=== PATIENT | female | born 1980 | race Caucasian/White ===

== ENCOUNTER 2016-12-13 12:58 | Inpatient (IN) | payer MEDICARE ==
[~2016-12-13] VITALS: Ht 160 cm; Wt 89.8 kg
[~2016-12-13 12:58] MED LIST: AMBIEN10 M1 ORAL; BENADRYL25 MG ORAL; DILAUDID1 MG/1 ML PO; PLAQUENIL200 MG ORAL; PREDNISONE2.5 MG ORAL; XARELTO10 MG ORAL
[2016-12-13] MEDS ORDERED: DiphenhydrAMINE 50mg/ml Inj IVP ONE ×2 (13:30→19:45)
[2016-12-13] MEDS ORDERED: Solu-MEDROL 125mg Inj IVP ONE (13:30)
[2016-12-13 14:30] VITALS: BP 173/113
[2016-12-13 14:41] LABS: MEAN CORPUSCULAR HEMOGLOBIN 30.6 PG (27.0-31.0); MEAN CORPUSCULAR HGB CONC 32.7 G/DL (32.0-36.0); MEAN CORPUSCULAR VOLUME 94 FL (80-99); MEAN PLATELET VOLUME 6.3 FL (6.5-10.1); PLATELET COUNT 207 K/UL (150-450); RED BLOOD COUNT 3.19 M/UL (4.20-5.40); RED CELL DISTRIBUTION WIDTH 17.4 % (11.6-14.8); WHITE BLOOD COUNT 8.2 K/UL (4.8-10.8)
[2016-12-13 14:44] LABS: APPEARANCE,URINE CLEAR; KETONES,URINE NEGATIVE (NEGATIVE); LEUKOCYTE ESTERASE ,URINE NEGATIVE (NEGATIVE); NITRITE,URINE NEGATIVE (NEGATIVE); PH,URINE 5 (4.5-8.0); PROTEIN,URINE 2+ (NEGATIVE); UROBILINOGEN,URINE NORMAL MG/DL (0.0-1.0)
[2016-12-13 14:53] LABS: BACTERIA,URINE FEW /HPF; RBC,URINE 0-2 /HPF (0 - 2); SQUAMOUS EPITHELIAL CELL,UR MODERATE /LPF (NONE/OCC); WBC,URINE 0-2 /HPF (0 - 2)
[2016-12-13 14:58] LABS: ALANINE AMINOTRANSFERASE 18 U/L (3-33); ALBUMIN/GLOBULIN RATIO 2.4 (1.0-2.7); ANION GAP 15 (5-15); ASPARTATE AMINO TRANSFERASE 16 U/L (5-40); CALCIUM 8.6 mg/dL (8.6-10.2); CARBON DIOXIDE 26 mEQ/L (20-30); CHLORIDE 100 mEQ/L (98-107); CREATININE 0.7 mg/dL (0.5-0.9); GLOMERULAR FILTRATION RATE > 60 mL/min (>60); HEMOLYSIS 4; POTASSIUM 3.5 mEQ/L (3.4-4.9); REFLEX LACTIC ACID YES OR NO YES; SODIUM 141 mEQ/L (135-145); TOTAL PROTEIN 5.5 g/dL (6.6-8.7)
[2016-12-13 15:00] LABS: PROTHROMBIN TIME 9.9 SEC (9.30-11.50)
[2016-12-13 15:12] LABS: TROPONIN I < 0.30 ng/mL (<=0.30)
[2016-12-13 15:18] LABS: ANISOCYTOSIS 1+; BAND NEUTROPHILS % (MANUAL) 0 % (0-8); BASOPHILS % (MANUAL) 0 % (0-2); EOSINOPHILS % (MANUAL) 0 % (0-3); LYMPHOCYTES % (MANUAL) 2 % (20-45); NEUTROPHILS % (MANUAL) 97 % (45-75); PLATELET ESTIMATE ADEQUATE; PLATELET MORPHOLOGY NORMAL; TOTAL CELLS COUNTED 100
[2016-12-13 15:20] LABS: HYPOCHROMASIA 1+
[2016-12-13 15:49] LABS: ERYTHROCYTE SEDIMENTATION RATE 16 MM/HR (0-20)
--- NOTE | 2016-12-13 15:52 | Emergency Room Report ---
History of Present Illness General Chief Complaint: Syncope Source: Patient Present Illness HPI Patient presents with chest pain dyspnea on exertion. She's had a history of PEs in the past and feels like this is what's going on at this time. She is on Xarelto but has had PEs on this medication. All anticoagulants that she's been on have not been effective for her. She states the coagulopathy is related to her Lupus. She is taking Dilaudid 2 mg every 4 hours at home IV along with benadryl. The pain is 8/10, under her L breast and radiates to her back. It is pleuritic. She denies productive cough or fever, but feels chilled. She also passed out for a short period of time around noon today. No palpitations. 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 She has been on them for several months - usually 3 weeks of treatment with Vancomycin then off for 3 weeks. This came from portacath infection. The patient also has systemic lupus erythematosus. She has an allergy to contrast dye but tolerates this with pre-treatment with solumedrol and benadryl. She has been evaluated at [place]. 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[place] Last Menstrual Period: 12/01/16 Now: No Reviewed Nursing Documentation: PMH: Agreed, PSxH: Agreed Nursing Documentation-PM Past Medical History: No History, Except For Review of Systems All Other Systems: negative except mentioned in HPI Physical Exam Vital Signs Date Time Temp Pulse Resp B/P Pulse Ox O2 Delivery O2 Flow Rate FiO2 12/13/16 13:10 97.2 108 18 161/108 99 Room Air Sp02 EP Interpretation: reviewed, normal General Appearance: well appearing, no apparent distress, GCS 15, obese Head: normocephalic Eyes: bilateral eye PERRL, bilateral eye normal inspection ENT: moist mucus membranes Neck: supple Respiratory: lungs clear, normal breath sounds, other - chest wall tenderness L Cardiovascular #1: tachycardia, other - PICC line L antecub - skin not erythematous Cardiovascular #2: 2+ radial (R) Gastrointestinal: normal inspection, normal bowel sounds, non tender, no mass, non-distended Musculoskeletal: back normal, gait/station normal, normal range of motion Neurologic: alert, oriented x3, grossly normal Psychiatric: mood/affect normal Skin: normal inspection, warm/dry, other - some skin lesions, not appear infected Medical Decision Making Diagnostic Impression: Primary Impression: Syncope Qualified Codes: R55 - Syncope and collapse Additional Impressions: R/O pulmonary embolus Osteomyelitis of spine Lupus (systemic lupus erythematosus) Qualified Codes: M32.19 - Other organ or system involvement in systemic lupus erythematosus ER Course The patient's presents with syncope and with left-sided chest pain with history of pulmonary emboli. Differential includes acute myocardial infarction, pneumonia, or embolus, arrhythmia, electrolyte abnormality, exacerbation of lupus, gastroenteritis amongst others. The patient is tachycardic and needs emergent evaluation with labs, chest x-ray, EKG and also CT angiogram of the chest. She'll be treated with analgesia. She states she has a allergy to contrast dye but does well with Solu-Medrol and Benadryl. These will be administered to the patient also appeared very complicated patient the niece to have review of medical records from [place] and the [facility]. These are not available to us at this time. Her oxygen saturation is good on room air however she is tachycardic. The patient has some relief with analgesia. EKG shows sinus tachycardia. Labs are significant for anemia, normal white count, elevated lactate. She will receive IV hydration and likely will be repeated. Radiology has a protocol to wait 24 hours for CTA with contrast allergy. Will treat empirically. Heparin ordered. Patient admitted to Dr. Wallis and he was made aware of the radiology protocol. Laboratory Tests Test 12/13/16 14:20 12/13/16 16:30 White Blood Count 8.2 K/UL (4.8-10.8) Red Blood Count 3.19 M/UL (4.20-5.40) L Hemoglobin 9.8 G/DL (12.0-16.0) L Hematocrit 29.9 % (37.0-47.0) L Mean Corpuscular Volume 94 FL (80-99) Mean Corpuscular Hemoglobin 30.6 PG (27.0-31.0) Mean Corpuscular Hemoglobin Concent 32.7 G/DL (32.0-36.0) Red Cell Distribution Width 17.4 % (11.6-14.8) H Platelet Count 207 K/UL (150-450) Mean Platelet Volume 6.3 FL (6.5-10.1) L Neutrophils (%) (Auto) % (45.0-75.0) Lymphocytes (%) (Auto) % (20.0-45.0) Monocytes (%) (Auto) % (1.0-10.0) Eosinophils (%) (Auto) % (0.0-3.0) Basophils (%) (Auto) % (0.0-2.0) Differential Total Cells Counted 100 Neutrophils % (Manual) 97 % (45-75) H Lymphocytes % (Manual) 2 % (20-45) L Monocytes % (Manual) 1 % (1-10) Eosinophils % (Manual) 0 % (0-3) Basophils % (Manual) 0 % (0-2) Band Neutrophils 0 % (0-8) Platelet Estimate Adequate Platelet Morphology Normal Hypochromasia 1+ Anisocytosis 1+ Erythrocyte Sedimentation Rate 16 MM/HR (0-20) Prothrombin Time 9.9 SEC (9.30-11.50) Prothrombin Time INR 1.0 (0.9-1.1) PTT 19 SEC (23-33) L Urine Color Pale yellow Urine Appearance Clear Urine pH 5 (4.5-8.0) Urine Specific [place] 1.010 (1.005-1.035) Urine Protein 2+ (NEGATIVE) H Urine Glucose (UA) Negative (NEGATIVE) Urine Ketones Negative (NEGATIVE) Urine Occult Blood Negative (NEGATIVE) Urine Nitrite Negative (NEGATIVE) Urine Bilirubin Negative (NEGATIVE) Urine Urobilinogen Normal MG/DL (0.0-1.0) Urine Leukocyte Esterase Negative (NEGATIVE) Urine RBC 0-2 /HPF (0 - 2) Urine WBC 0-2 /HPF (0 - 2) Urine Squamous Epithelial Cells Moderate /LPF (NONE/OCC) H Urine Bacteria Few /HPF (NONE) Urine HCG, Qualitative Negative Sodium Level 141 mEQ/L (135-145) Potassium Level 3.5 mEQ/L (3.4-4.9) Chloride Level 100 mEQ/L (98-107) Carbon Dioxide Level 26 mEQ/L (20-30) Anion Gap 15 (5-15) Blood Urea Nitrogen 14 mg/dL (7-23) Creatinine 0.7 mg/dL (0.5-0.9) Estimate Glomerular Filtration Rate > 60 mL/min (>60) Glucose Level 169 mg/dL (74-106) H Lactic Acid Level 2.30 mmol/L (0.66-2.22) H 1.40 mmol/L (0.66-2.22) Calcium Level 8.6 mg/dL (8.6-10.2) Total Bilirubin < 0.2 mg/dL (0.0-1.2) Aspartate Amino Transferase (AST) 16 U/L (5-40) Alanine Aminotransferase (ALT) 18 U/L (3-33) Alkaline Phosphatase 66 U/L (35-104) Total Creatine Kinase 52 U/L (26-140) Troponin I < 0.30 ng/mL (<=0.30) Pro-B-Type Natriuretic Peptide 662 pg/mL (0-125) H Total Protein 5.5 g/dL (6.6-8.7) L Albumin 3.9 g/dL (3.5-5.2) Globulin 1.6 g/dL Albumin/Globulin Ratio 2.4 (1.0-2.7) EKG Diagnostic Results Rate: tachycardiac ST Segments: no acute changes Rhythm Strip Diag. Results EP Interpretation: yes Rhythm: no PVC's, no ectopy, other - ST Chest X-Ray Diagnostic Results EP Interpretation: Yes Findings: no effusion, no pneumothorax, other - poor inspiration Number of Views: 1 Last Vital Signs Date Time Temp Pulse Resp B/P Pulse Ox O2 Delivery O2 Flow Rate FiO2 12/13/16 17:58 98.4 100 14 169/109 98 Room Air 2.0 Status: improved Disposition: ADMITTED INPATIENT Condition: Serious Referrals: NON PHYSICIAN (PCP) Marcello Patel M.D. Dec 13, 2016 15:52
[2016-12-13] MEDS ORDERED: Heparin 25,000u/D5W 500ml 500 ML IV SCH (16:45)
[2016-12-13] MEDS ORDERED: Heparin 5000 units/ml inj IV ONE (16:45)
[2016-12-13] MEDS ORDERED: HYDROmorphone 1mg/ml Carpuject IVP ONE (16:45)
--- NOTE | 2016-12-13 17:01 | Diagnostic Imaging Report ---
Indication: Shortness of breath Technique: One view of the chest Comparison: 09/25/2016 Findings: Suboptimal inspiration. No definite acute infiltrates, effusions or congestion. Heart size is normal Impression: No acute process
[2016-12-13 17:58] VITALS: BP 169/109
[2016-12-13] MEDS ORDERED: Vancomycin 1.5gm/D5W 300ml 325 ML IVPB ONE (19:45)
[2016-12-13 23:42] VITALS: BP 148/100
[2016-12-13] MEDS ORDERED: Zolpidem 5mg tab ORAL PRN (23:45)
[2016-12-14] MEDS: DiphenhydrAMINE 50mg/ml Inj IVP PRN ×4 (02:14→21:12)
[2016-12-14] MEDS: 1/2NS w/KCl 20mEq 1000ml 1,000 ML IV SCH ×2 (02:33→14:44)
--- NOTE | 2016-12-14 03:28 | History and Physical Report ---
DATE OF ADMISSION: 12/13/2016 CONSULTING PHYSICIAN: Marcello Wallis M.D. REQUESTING PHYSICIAN: Chas Brady M.D. REASON FOR EVALUATION: Chest pain. HISTORY OF PRESENT ILLNESS: This is a 36-year-old white female with systemic lupus and history of pulmonary emboli, who is on chronic anticoagulation with rivaroxaban 20 mg daily which she takes religiously. The patient has had pulmonary emboli in the past, on anticoagulation. The patient is on chronic pain therapy as well at home using a PICC line. The patient presented to the emergency room complaining of chest pain and shortness of breath with activity radiating from her left breast through to her back. The patient thinks she may have passed out for a short period today, but no injury noted. She also is concerned because both her parents at a young age of heart disease. The patient is also receiving intravenous antibiotics for osteomyelitis at home. PAST MEDICAL HISTORY: As noted above. ALLERGIES: Includes Ketoralac, nonsteroidal anti-inflammatory drugs, sulfa, chlorhexidine, CT contrast, and Lasix. SOCIAL HISTORY: Negative for smoking, alcohol, or substance abuse. REVIEW OF SYSTEMS: No fevers or chills. She has back pain and is on intravenous antibiotics for osteomyelitis. There is no history of seizures. There is no history of endocarditis. She has not had any melena bright red blood per rectum. No frequency or dysuria. PHYSICAL EXAM: VITAL SIGNS: Afebrile, blood pressure 161/108, pulse 108, and respirations 18. HEENT: Conjunctivae pink. Oropharynx clear. No point tenderness over the spine. NECK: Short neck. CARDIAC: Regular rhythm and rate. Normal S1 and S2 with no murmur. LUNGS: Clear. ABDOMEN: Soft. EXTREMITIES: With no calf tenderness or edema. No skin rash or bruising. PICC line site over the left upper extremity with no signs of entry site infection. LABORATORY AND DIAGNOSTIC STUDIES: Troponin negative. White count 8.2 and hemoglobin 9.8. Lactic acid 2.5. Chemistry panel within normal limits. Pro-natriuretic peptide of 662. Chest x-ray, no acute process with poor inspiratory effort. EKG, sinus tachycardia, otherwise normal. IMPRESSION: 1. Chest and back pain in the setting of chronic pain and osteomyelitis of the spine. Considerations include pulmonary embolic event, musculoskeletal pain, or less likely acute coronary syndrome. 2. Possible syncopal episode. 3. Systemic lupus. 4. Microcytic anemia. PLAN: 1. Cardiac monitoring. 2. Monitor orthostatics. 3. Continue rivaroxaban. 4. Serial troponin. 5. Repeat lactic acid. 6. Hydrate. 7. CT coronary angiogram. 8. Echocardiogram. 9. IV Dilaudid for pain control. 10. Anemia panel. 11. Further recommendations to follow. Marcello Wallis M.D. DR: TYRELL JOB#: [id number] CC: JEAN
[2016-12-14 04:00] VITALS: BP 159/106
[2016-12-14 05:58] LABS: MEAN CORPUSCULAR HEMOGLOBIN 29.5 PG (27.0-31.0); MEAN CORPUSCULAR HGB CONC 31.9 G/DL (32.0-36.0); MEAN CORPUSCULAR VOLUME 92 FL (80-99); MEAN PLATELET VOLUME 6.3 FL (6.5-10.1); PLATELET COUNT 212 K/UL (150-450); RED BLOOD COUNT 3.01 M/UL (4.20-5.40); RED CELL DISTRIBUTION WIDTH 16.9 % (11.6-14.8); WHITE BLOOD COUNT 11.7 K/UL (4.8-10.8)
[2016-12-14 06:33] LABS: ALANINE AMINOTRANSFERASE 14 U/L (3-33); ALBUMIN/GLOBULIN RATIO 1.7 (1.0-2.7); ANION GAP 11 (5-15); ASPARTATE AMINO TRANSFERASE 13 U/L (5-40); CALCIUM 8.5 mg/dL (8.6-10.2); CARBON DIOXIDE 28 mEQ/L (20-30); CHLORIDE 102 mEQ/L (98-107); CREATININE 0.8 mg/dL (0.5-0.9); GLOMERULAR FILTRATION RATE > 60 mL/min (>60); HEMOLYSIS 13; POTASSIUM 3.4 mEQ/L (3.4-4.9); SODIUM 141 mEQ/L (135-145)
[2016-12-14 07:10] LABS: TROPONIN I < 0.30 ng/mL (<=0.30)
[2016-12-14 07:19] LABS: HEMOLYSIS 7; IRON 58 ug/dL (37-145); TOTAL IRON BINDING CAPACITY 267 ug/dL (250-400)
[2016-12-14 08:00] VITALS: BP 160/121
[2016-12-14] MEDS: Xarelto 10mg tab ORAL SCH (09:03)
[2016-12-14 12:00] VITALS: BP 142/72
[2016-12-14] MEDS ORDERED: Solu-MEDROL 125mg Inj IVP ONE ×2 (12:45)
[2016-12-14] MEDS ORDERED: KCl 10% 20 mEq/15ml liquid NG ONE (13:00)
[2016-12-14] MEDS: Vancomycin 1.25 GM in D5W 275 ML IVPB SCH (14:44)
--- NOTE | 2016-12-14 14:44 | Diagnostic Imaging Report ---
Indications: Chest pain, dyspnea on exertion, history of pulmonary embolism Technique: Patient was premedicated for history of iodine contrast allergy beginning 24 hours prior to exam. Continuous helical CT imaging of the thorax was performed with automatic exposure control, following bolus intravenous administration of nonionic iodine contrast, on a Siemens sensation [address] scanner. Axial images reconstructed at 3 mm slice thickness and 1.5 mm interval. Coronal and sagittal images were reconstructed at 3 mm slice thickness. Coronal and sagittal two-dimensional maximum intensity projection and three-dimensional volume-rendered images were reconstructed on a stand alone workstation. Patient's nurse continually monitored the patient during and after the exam. CTDI volume(s): 13x2, 40 mGy Total DLP: 1110 mGy-cm Findings: Comparison: None The main pulmonary artery, right and left pulmonary arteries, and pulmonary artery branches to the level of third order branching are patent and well-opacified. No intraluminal filling defects are demonstrated. The thoracic aorta and great vessels are patent and well-opacified, normal in caliber and configuration. No evidence of aneurysm, dissection, or leak. Heart is upper limits of normal in size. No pericardial abnormality is demonstrated. No mediastinal or hilar enlarged lymph nodes are demonstrated. Central venous catheter extends from the left upper extremity, tip at level of SVC-right atrial junction. Irregular pleural-based linear densities are present in the dependent portions both lung bases. Lungs are otherwise clear. No pleural abnormalities. Chest wall soft tissues nonfocal. Imaged upper abdominal anatomy unremarkable. Disc marginal osteophytes scattered throughout thoracic, lower cervical spine. IMPRESSION: No evidence of pulmonary embolism or other significant acute thoracic pathology Pulmonary bibasal subsegmental atelectasis Borderline cardiomegaly PICC Degenerative spondylosis
[2016-12-14 16:00] VITALS: BP 159/99
[2016-12-14 20:00] VITALS: BP 148/84
[2016-12-15] VITALS: BP 144/87
[2016-12-15] MEDS: Vancomycin 1.25 GM in D5W 275 ML IVPB SCH ×2 (01:20→13:29)
[2016-12-15] MEDS: DiphenhydrAMINE 50mg/ml Inj IVP PRN ×5 (01:20→21:23)
[2016-12-15 04:00] VITALS: BP 151/83
[2016-12-15] MEDS: 1/2NS w/KCl 20mEq 1000ml 1,000 ML IV SCH ×2 (05:30→17:56)
[2016-12-15 06:44] LABS: MEAN CORPUSCULAR HEMOGLOBIN 30.2 PG (27.0-31.0); MEAN CORPUSCULAR HGB CONC 32.1 G/DL (32.0-36.0); MEAN CORPUSCULAR VOLUME 94 FL (80-99); MEAN PLATELET VOLUME 6.4 FL (6.5-10.1); PLATELET COUNT 241 K/UL (150-450); RED CELL DISTRIBUTION WIDTH 17.2 % (11.6-14.8); WHITE BLOOD COUNT 13.1 K/UL (4.8-10.8)
[2016-12-15 07:15] LABS: ALANINE AMINOTRANSFERASE 13 U/L (3-33); ALBUMIN/GLOBULIN RATIO 1.7 (1.0-2.7); ANION GAP 12 (5-15); ASPARTATE AMINO TRANSFERASE 10 U/L (5-40); CALCIUM 8.3 mg/dL (8.6-10.2); CARBON DIOXIDE 27 mEQ/L (20-30); CHLORIDE 102 mEQ/L (98-107); CREATININE 0.9 mg/dL (0.5-0.9); GLOMERULAR FILTRATION RATE > 60 mL/min (>60); HEMOLYSIS 4; MAGNESIUM 1.7 mg/dL (1.7-2.5); POTASSIUM 3.5 mEQ/L (3.4-4.9); SODIUM 141 mEQ/L (135-145)
[2016-12-15 08:00] VITALS: BP 152/84
[2016-12-15 09:50] LABS: LYMPHOCYTES % (MANUAL) 5 % (20-45); NEUTROPHILS % (MANUAL) 87 % (45-75); TOTAL CELLS COUNTED 100
[2016-12-15 09:51] LABS: ANISOCYTOSIS 1+; BAND NEUTROPHILS % (MANUAL) 0 % (0-8); BASOPHILS % (MANUAL) 0 % (0-2); EOSINOPHILS % (MANUAL) 0 % (0-3); HYPOCHROMASIA 1+; PLATELET ESTIMATE ADEQUATE; PLATELET MORPHOLOGY NORMAL; POLYCHROMASIA OCCASIONAL
[2016-12-15 12:00] VITALS: BP 145/85
[2016-12-15 16:00] VITALS: BP 144/86
[2016-12-15] MEDS: Xarelto 10mg tab ORAL SCH (17:19)
[2016-12-15 20:00] VITALS: BP 150/96
[2016-12-15] MEDS: Iron Sucrose 100 MG in NS 55 ML IVPB SCH (21:34)
[2016-12-16] VITALS: BP 149/82
--- NOTE | 2016-12-16 01:27 | Progress Note ---
INTERNAL MEDICINE PROGRESS NOTE SUBJECTIVE: The patient feels very weak. She denies chest pain and is less short of breath, but feels tired just walking to the bathroom. The patient had a CT angiogram yesterday that was preceded by a steroid dose intravenously in view of her contrast allergy. No complications were encountered. The results of study revealed no acute pulmonary embolic event. OBJECTIVE: VITAL SIGNS: Blood pressure 145/85, pulse 86, respirations 20, and afebrile. Oxygen saturation on room air is 96%. NECK: Supple. CHEST: Chest wall obese. LUNGS: Clear. ABDOMEN: Soft EXTREMITIES: Left upper extremity PICC line with the entry site having some erythema. Extremities with trace edema. LABORATORY DATA: White count 13 and hemoglobin 9.4. Sodium 141, potassium 3.5, BUN 18, creatinine 0.9, and albumin 3.2. IMPRESSION: 1. No signs of acute pulmonary emboli. 2. History of prior pulmonary emboli. 3. 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 4. Rivaroxaban-associated coagulopathy. 5. Mild protein-calorie malnutrition. 6. Osteomyelitis of the spine on chronic antibiotics. 7. Indwelling central line in the left upper extremity since 10/09/2016. 8. Leukocytosis due to steroids. Could not exclude PICC line site infection. 9. Systemic lupus. PLAN: 1. Continue antibiotics. 2. Protein supplements. 3. Anticoagulate with rivaroxaban. 4. Serial hemoglobin. 5. Replace potassium as needed. 6. Infectious Disease evaluation to assess the need for a PICC line replacement. Marcello Wallis M.D. DR: TYRELL JOB#: [id number] CC:
[2016-12-16] MEDS: DiphenhydrAMINE 50mg/ml Inj IVP PRN ×6 (01:35→21:40)
[2016-12-16] MEDS: guaiFENesin w/Codeine 5ml Liq ud ORAL PRN ×3 (01:35→17:47)
[2016-12-16] MEDS: 1/2NS w/KCl 20mEq 1000ml 1,000 ML IV SCH ×2 (01:36→21:31)
--- NOTE | 2016-12-16 01:37 | Progress Note ---
DATE: 12/14/2016 INTERNAL MEDICINE PROGRESS NOTE SUBJECTIVE: The patient still has chest pain especially with deep inspiration and cough. She has minimal shortness of breath, but gets fatigued walking to the bathroom. No fevers or chills noted. OBJECTIVE: VITAL SIGNS: Blood pressure 159/99, pulse 105, respirations 18, and afebrile. HEENT: Oropharynx clear. NECK: Supple. Jugular venous pressure is difficult to assess due to obesity of neck. LUNGS: With clear breath sounds. CARDIAC: Regular rhythm and rate. Normal S1 and S2 with no murmur. ABDOMEN: Soft. EXTREMITIES: With trace edema. Left upper extremity PICC line site clean and dry. LABORATORY DATA: White count is 11.7 and hemoglobin 8.9. Sodium 141, potassium 3.4, bicarbonate 28, BUN 15, and creatinine 0.8. Iron panel with saturation of 22%. Albumin 3.2. IMPRESSION: 1. Noncardiac chest pain, pleuritic chest pain. 2. History of pulmonary emboli with inferior vena cava filter bilaterally, rule out acute pulmonary embolic event. 3. Systemic lupus. 4. Borderline hypokalemia. 5. Iron deficiency with chronic anemia. 6. Mild protein-calorie malnutrition. 7. Hypertensive heart disease with elevated blood pressure. PLAN: 1. Check echocardiogram. 2. Check CT angiogram of the chest. 3. Continue full anticoagulation with rivaroxaban. 4. Skin care. 5. Continue antibiotics osteomyelitis. 6. Hydrate and replace potassium. 7. Optimize blood pressure control. 8. Continue Plaquenil. Marcello Wallis M.D. DR: KELTON JOB#: [id number] CC:
[2016-12-16] MEDS: Vancomycin 1.25 GM in D5W 275 ML IVPB SCH ×2 (02:31→13:36)
[2016-12-16 03:23] LABS: MEAN CORPUSCULAR HEMOGLOBIN 29.8 PG (27.0-31.0); MEAN CORPUSCULAR HGB CONC 31.9 G/DL (32.0-36.0); MEAN CORPUSCULAR VOLUME 94 FL (80-99); MEAN PLATELET VOLUME 6.2 FL (6.5-10.1); PLATELET COUNT 214 K/UL (150-450); RED BLOOD COUNT 3.18 M/UL (4.20-5.40); RED CELL DISTRIBUTION WIDTH 17.1 % (11.6-14.8); WHITE BLOOD COUNT 9.2 K/UL (4.8-10.8)
[2016-12-16 03:41] LABS: ALANINE AMINOTRANSFERASE 14 U/L (3-33); ALBUMIN/GLOBULIN RATIO 1.8 (1.0-2.7); ANION GAP 10 (5-15); ASPARTATE AMINO TRANSFERASE 11 U/L (5-40); CALCIUM 7.8 mg/dL (8.6-10.2); CARBON DIOXIDE 30 mEQ/L (20-30); CHLORIDE 103 mEQ/L (98-107); CREATININE 0.9 mg/dL (0.5-0.9); GLOMERULAR FILTRATION RATE > 60 mL/min (>60); HEMOLYSIS 3; MAGNESIUM 1.6 mg/dL (1.7-2.5); POTASSIUM 3.3 mEQ/L (3.4-4.9); SODIUM 143 mEQ/L (135-145); TOTAL PROTEIN 4.9 g/dL (6.6-8.7)
[2016-12-16 08:00] VITALS: BP 139/90
[2016-12-16] MEDS: Lisinopril 20mg tab ORAL SCH (09:11)
[2016-12-16 12:00] VITALS: BP_SYST 139; BP_SYST 145; BP_DIAS 68; BP_DIAS 90
[2016-12-16] MEDS ORDERED: Tubing IV Secondary IV ONE (14:38)
[2016-12-16 16:00] VITALS: BP 144/70
--- NOTE | 2016-12-16 16:12 | Cardiology Report ---
APPROVED REPORT EKG Measurement Heart [id number] Sinus tachycardia Otherwise normal ECG
[2016-12-16] MEDS: Xarelto 10mg tab ORAL SCH (16:30)
--- NOTE | 2016-12-16 16:49 | Cardiology Report ---
APPROVED REPORT EXAM: Two-dimensional and M-mode echocardiogram with Doppler and color Doppler. INDICATION Chest Pain M-Mode DIMENSIONS IVSd1.5 (0.7-1.1cm)Left Atrium (MM)4.3 (1.6-4.0cm) LVDd3.9 (3.5-5.6cm)Aortic Root3.9 (2.0-3.7cm) PWd1.4 (0.7-1.1cm)Aortic Cusp Exc.1.5 (1.5-2.0cm) IVSs1.8 cm LVDs3.0 (2.5-4.0cm) PWs1.6 cm Technically difficult study due to pts position and body habitus. Normal left ventricular chamber size, systolic function and wall motion to extent visualized. Left ventricular ejection fraction estimated to be 55 %. Mild left ventricular hypertrophy. Anterior Echo-free space, may be due to pericardial fat or effusion. Left atrial size at upper limits of normal. Right cardiac chamber sizes are within normal limits. Mild focal aortic valve sclerosis with adequate cusp excursion. Mildly thickened mitral valve leaflets with normal excursion. Mitral annulus and aortic root calcification. Pulmonic valve not well visualized. Normal tricuspid valve structure. IVC measured at 2.1 cm with physiologic collapse. A color flow and spectral Doppler study was performed and revealed: Trace aortic regurgitation. Moderate mitral regurgitation. Mitral diastolic velocities suggest reduced left ventricular relaxation c/w mild LV diastolic dysfunction (Grade I ). Mild tricuspid regurgitation. Tricuspid systolic velocities suggests peak right ventricular systolic pressure of 33 mmHg. Mild pulmonic regurgitation present.
[2016-12-16] MEDS ORDERED: KCl 10% 20 mEq/15ml liquid ORAL ONE (18:00)
[2016-12-16 20:00] VITALS: BP 142/92
[2016-12-16] MEDS: Iron Sucrose 100 MG in NS 55 ML IVPB SCH (21:31)
[2016-12-17] VITALS (7 sets, daily range): BP systolic 121–143; BP diastolic 78–97
[2016-12-17] MEDS: DiphenhydrAMINE 50mg/ml Inj IVP PRN ×6 (01:42→22:07)
[2016-12-17] MEDS: Vancomycin 1.25 GM in D5W 275 ML IVPB SCH ×2 (02:21→14:01)
--- NOTE | 2016-12-17 03:37 | Progress Note ---
DATE: 12/16/2016 INTERNAL MEDICINE PROGRESS NOTE SUBJECTIVE: The patient continues to feel very weak. She gets short of breath and fatigued walking to the bathroom. No nausea or vomiting. No diarrhea. OBJECTIVE: GENERAL: Afebrile. VITAL SIGNS: Blood pressure 144/70, pulse 105, and respirations 18. NECK: Supple. LUNGS: Clear. CARDIAC: Regular rhythm. Rapid rate. Normal S1 and S2. ABDOMEN: Soft. EXTREMITIES: No edema. Left upper extremity, PICC line site appears without any signs of drainage at the entry site. LABORATORY DATA: White count 9.2 and hemoglobin 9.5. Potassium 3.3, magnesium 1.6, BUN 16, and creatinine 0.9. IMPRESSION: 1. Systemic lupus. 2. History of deep vein thrombosis, inferior vena cava filters and multiple pulmonary emboli, however, no current signs of acute pulmonary emboli based on imaging study. 3. Anemia. 4. Hypomagnesemia. 5. Hypokalemia. 6. Osteomyelitis of the spine. PLAN: 1. Continue antibiotics. 2. IV magnesium. 3. Oral potassium. 4. Physical and occupational therapy. 5. Full anticoagulation. 6. Consider beta-blockade. Marcello Wallis M.D. DR: CLARE JOB#: [id number] CC:
[2016-12-17 05:07] LABS: BASOPHILS % (AUTO) 0.8 % (0.0-2.0); EOSINOPHILS % (AUTO) 1.5 % (0.0-3.0); LYMPHOCYTES % (AUTO) 4.4 % (20.0-45.0); MEAN CORPUSCULAR HEMOGLOBIN 29.5 PG (27.0-31.0); MEAN CORPUSCULAR HGB CONC 31.9 G/DL (32.0-36.0); MEAN CORPUSCULAR VOLUME 92 FL (80-99); MEAN PLATELET VOLUME 5.9 FL (6.5-10.1); MONOCYTES % (AUTO) 10.4 % (1.0-10.0); NEUTROPHILS % (AUTO) 82.9 % (45.0-75.0); PLATELET COUNT 230 K/UL (150-450); RED BLOOD COUNT 3.78 M/UL (4.20-5.40); RED CELL DISTRIBUTION WIDTH 17.1 % (11.6-14.8); WHITE BLOOD COUNT 10.1 K/UL (4.8-10.8)
[2016-12-17 05:33] LABS: ALANINE AMINOTRANSFERASE 17 U/L (3-33); ALBUMIN/GLOBULIN RATIO 1.7 (1.0-2.7); ANION GAP 12 (5-15); ASPARTATE AMINO TRANSFERASE 19 U/L (5-40); CALCIUM 8.7 mg/dL (8.6-10.2); CARBON DIOXIDE 32 mEQ/L (20-30); CHLORIDE 91 mEQ/L (98-107); GLOMERULAR FILTRATION RATE > 60 mL/min (>60); HEMOLYSIS 4; POTASSIUM 4.2 mEQ/L (3.4-4.9); SODIUM 135 mEQ/L (135-145); TOTAL PROTEIN 5.8 g/dL (6.6-8.7)
[2016-12-17] MEDS: Lisinopril 20mg tab ORAL SCH ×2 (08:54→18:02)
[2016-12-17] MEDS ORDERED: KCl 10% 40mEq/30ml liquid ORAL ONE (16:30)
[2016-12-17] MEDS: Xarelto 10mg tab ORAL SCH (16:34)
--- NOTE | 2016-12-17 19:58 | Consultation ---
DATE OF CONSULTATION: 12/17/2016 INFECTIOUS DISEASE CONSULTATION This consult is for coverage of Dr. Domingo. REASON FOR CONSULTATION: Osteomyelitis of the spine in thoracic area. HISTORY OF PRESENT ILLNESS: The patient is a 36-year-old white female admitted on 12/13/2016 because of left-sided chest pain, shortness of breath on exertion, had brief period of loss of consciousness, and syncope for 30 seconds. The patient has a history of lupus and recurrent pulmonary emboli, has one anticoagulant medication. Currently, chest pain is resolved. The patient states that she had osteomyelitis of the spine with Staph, was seen in [facility] and getting vancomycin. She is supposed to go back there and have a surgery. She states that she was on vancomycin on and off for two years. PAST MEDICAL HISTORY: Significant for lupus with positive lupus anticoagulant and hemolytic anemia, thoracic spine osteomyelitis, history of recurrent pulmonary emboli. PAST SURGICAL HISTORY: Significant for IVC filter placement, had a history of Port-A-Cath placement, has PICC line placement, the last one was September of last year, had appendectomy and cholecystectomy. MEDICATIONS: Lisinopril, Robitussin with codeine, iron, sucrose, diphenhydramine, IV vancomycin, hydroxychloroquine, rivaroxaban, hydromorphone, Tylenol, and Ambien. ALLERGIES: Allergic to chlorhexidine, IV contrast, , ketorolac, nonsteroidal antiinflammatory drugs, plastic, and sulfa drugs. SOCIAL HISTORY: Denies alcohol, drug abuse, or smoking. She is single. Originally from [place], but trying to move to [place]. She has no sibling. REVIEW OF SYSTEMS: No fever. No chills. No headache. No sore throat. No runny nose. She started to coughing since last night. She has no chest pain at the time of exam. The patient generally feels weak, but otherwise can walk. PHYSICAL EXAMINATION: GENERAL APPEARANCE: She seems to be obese. BMI is 35, no acute distress. VITAL SIGNS: T-max 100.8 degrees and current temperature 98.4 degrees. HEAD AND NECK: [place] conjunctivae. No oral lesion. The patient uses glasses. HEART: S1 and S2 regular. LUNGS: Clear. ABDOMEN: Soft and nontender. EXTREMITIES: No edema. The patient has left arm PICC line. NEUROLOGIC: Awake, alert and oriented x3. LABORATORY AND DIAGNOSTIC DATA: WBC is 10.1, hemoglobin 11.1, hematocrit 34.9 and platelet is 230,000. Sodium is 135, potassium 4.2, chloride 91, bicarbonate 32, BUN 7, and creatinine 1. BNP level is 1342. Vancomycin trough level is 15.7. The patient has a CT angiogram of the chest that was negative. Echocardiogram showed normal ejection fraction. Chest x-ray at the time of admission was negative. IMPRESSION: Osteomyelitis of thoracic spine that seems to be chronic and the patient getting antibiotic for a while. The patient has episodic fever last night, has systemic lupus erythematous, has anemia, obesity, and history of pulmonary emboli. RECOMMENDATIONS: We will continue with vancomycin. We will followup the chest x-ray and followup the cultures. I thank, Dr. Wallis, for involving me in the care of this patient. Duglas Gonzales M.D. DR: KELECHI JOB#: [id number] CC:
[2016-12-17] MEDS: Iron Sucrose 100 MG in NS 55 ML IVPB SCH (20:21)
--- NOTE | 2016-12-17 20:48 | Progress Note ---
DATE: 12/17/2016 "NOTE: INCOMPLETE DICTATION" CARDIOLOGY PROGRESS NOTE SUBJECTIVE: The patient continues to feel very weak. Her mobility is limited due to shortness of breath and muscle weakness. OBJECTIVE: VITAL SIGNS: Blood pressure 143/84, pulse 108, respirations 18, and afebrile. NECK: Supple. LUNGS: Clear with diminished breath sounds. CARDIAC: Regular rhythm. Rapid rate. Normal S1 and S2. ABDOMEN: Soft. EXTREMITIES: With trace edema. LABORATORY DATA: White count 10 and hemoglobin 11. Potassium 4.2, BUN 7, and creatinine 1. Pro-natriuretic peptide 1342. Marcello Wallis M.D. DR: TYRELL JOB#: [id number] CC:
[2016-12-18] VITALS: BP 113/56
[2016-12-18] MEDS: Vancomycin 1.25 GM in D5W 275 ML IVPB SCH ×2 (02:04→14:46)
[2016-12-18] MEDS: DiphenhydrAMINE 50mg/ml Inj IVP PRN ×6 (02:13→23:15)
[2016-12-18 04:00] VITALS: BP 118/65
[2016-12-18 08:00] VITALS: BP 104/73
[2016-12-18 08:00] LABS: ANION GAP 18 (5-15); CALCIUM 8.1 mg/dL (8.6-10.2); CARBON DIOXIDE 26 mEQ/L (20-30); CHLORIDE 96 mEQ/L (98-107); GLOMERULAR FILTRATION RATE > 60 mL/min (>60); HEMOLYSIS 78; MAGNESIUM 2.1 mg/dL (1.7-2.5); POTASSIUM 4.7 mEQ/L (3.4-4.9); SODIUM 140 mEQ/L (135-145)
[2016-12-18] MEDS: Lisinopril 20mg tab ORAL SCH ×2 (08:40→18:04)
--- NOTE | 2016-12-18 11:01 | Infectious Diseases Prog Note ---
Assessment/Plan Assessment/Plan antibiotics : vancomycin iv A 1. thoracic spine osteomyelitis 2. fever improving 3. lupus 4. anemia P 1. continue iv vancomycin 2. will follow up cultures Subjective Constitutional: Denies: chills, fever Respiratory: Reports: dry cough, shortness of breath Gastrointestinal/Abdominal: Denies: diarrhea, nausea, vomiting Musculoskeletal: Reports: pain Allergies: Coded Allergies: KETOROLAC (Verified Allergy, Unknown, 09/25/16) NSAIDS (NON-STEROIDAL ANTI-INFLAMMA (Verified Allergy, Unknown, 09/25/16) SULFA (SULFONAMIDE ANTIBIOTICS) (Verified Allergy, Unknown, 09/25/16) Uncoded Allergies: CHLORAHEXIDINE (Allergy, Unknown, 09/25/16) Chlorahexidine CT CONTRAST (Allergy, Unknown, 09/25/16) CT Contrast PLASTIC (Allergy, Unknown, 09/25/16) Plastic tape Objective Vital Signs Last 24 Hour Vital Signs Date Time Temp Pulse Resp B/P Pulse Ox O2 Delivery O2 Flow Rate FiO2 12/18/16 08:00 106 12/18/16 08:00 96.1 96 20 104/73 98 Room Air 12/18/16 06:48 98.1 12/18/16 04:00 98.1 106 18 118/65 95 Room Air 12/18/16 03:45 104 12/18/16 00:00 97.9 104 18 113/56 95 Room Air 12/17/16 23:39 99 12/17/16 20:00 111 12/17/16 20:00 98.1 112 20 121/84 92 Room Air 12/17/16 18:02 143/84 12/17/16 16:00 106 12/17/16 16:00 98.2 108 18 143/84 91 Room Air 12/17/16 12:00 98.4 111 20 124/97 92 Room Air 12/17/16 12:00 103 Height (Feet): 5 Height (Inches): 3.00 Weight (Pounds): 198 Respiratory/Chest: rhonchi - bilaterally Cardiovascular: normal rate, regular rhythm, no gallop/murmur Abdomen: soft, non tender Extremities: no edema Microbiology Date/Time Source Procedure Growth Status 12/16/16 08:30 Blood Blood Culture - Preliminary NO GROWTH AFTER 24 HOURS Resulted 12/16/16 03:00 Blood Blood Culture - Preliminary NO GROWTH AFTER 48 HOURS Resulted Laboratory Tests Test 12/18/16 04:30 Sodium Level 140 mEQ/L (135-145) Potassium Level 4.7 mEQ/L (3.4-4.9) Chloride Level 96 mEQ/L (98-107) L Carbon Dioxide Level 26 mEQ/L (20-30) Anion Gap 18 (5-15) H Blood Urea Nitrogen 10 mg/dL (7-23) Creatinine 1.0 mg/dL (0.5-0.9) H Estimat Glomerular Filtration Rate > 60 mL/min (>60) Glucose Level 87 mg/dL (74-106) Calcium Level 8.1 mg/dL (8.6-10.2) L Magnesium Level 2.1 mg/dL (1.7-2.5) JAY ISRAEL Dec 18, 2016 11:01
[2016-12-18 12:00] VITALS: BP 117/78
--- NOTE | 2016-12-18 13:47 | Diagnostic Imaging Report ---
Indication: COUGH Technique: One view of the chest Comparison: 12/13/2016 Findings: Lungs and pleural spaces are clear. Heart size is normal. Left arm PICC is again demonstrated. There is no significant change Impression: No acute process
[2016-12-18 16:00] VITALS: BP 122/91
[2016-12-18] MEDS ORDERED: DuoNeb 0.5-3(2.5)mg/3ml neb HHN SCH (16:00)
[2016-12-18] MEDS: Xarelto 10mg tab ORAL SCH (18:03)
[2016-12-18] MEDS: DuoNeb 0.5-3(2.5)mg/3ml neb HHN SCH (18:51)
[2016-12-18 20:00] VITALS: BP 124/75
[2016-12-18] MEDS: Iron Sucrose 100 MG in NS 55 ML IVPB SCH (21:18)
[2016-12-19 00:54] VITALS: BP 134/62
[2016-12-19] MEDS: DuoNeb 0.5-3(2.5)mg/3ml neb HHN SCH ×3 (01:00→13:30)
[2016-12-19] MEDS: Vancomycin 1.25 GM in D5W 275 ML IVPB SCH ×2 (01:59→13:49)
--- NOTE | 2016-12-19 02:29 | Progress Note ---
GENERAL MEDICINE PROGRESS NOTE SUBJECTIVE: The patient is complaining of congestion today and cough. She still has weakness and diffuse pain. Her chest x-ray was reviewed. No acute process noted. PHYSICAL EXAMINATION: VITAL SIGNS: Blood pressure 124/75, pulse 112, and respiratory rate 18. Afebrile. HEART: Few rhonchi. Regular rhythm. Rapid rate. Normal S1, S2. ABDOMEN: Soft. EXTREMITIES: Trace edema. IMPRESSION: 1. Bronchospasm. 2. Possible bronchitis. 3. Osteomyelitis of the spine. 4. Systemic lupus. 5. Acute diastolic congestive heart failure. 6. Hypercoagulable state. 7. History of inferior vena cava filter. 8. History of recurring pulmonary emboli. PLAN: 1. Cautious use of inhaled bronchodilators with beta agonist in view of tachycardia. 2. Diuresis, continue antibiotics. 3. Continue full anticoagulation. 4. Physical and occupational therapy. 5. Pending surgical intervention of the spine. Marcello Wallis M.D. DR: ANDREWS JOB#: [id number] CC:
[2016-12-19] MEDS: DiphenhydrAMINE 50mg/ml Inj IVP PRN ×4 (03:15→15:34)
[2016-12-19 04:00] VITALS: BP 140/75
[2016-12-19 05:52] LABS: MEAN CORPUSCULAR HEMOGLOBIN 29.2 PG (27.0-31.0); MEAN CORPUSCULAR HGB CONC 30.9 G/DL (32.0-36.0); MEAN CORPUSCULAR VOLUME 95 FL (80-99); MEAN PLATELET VOLUME 6.7 FL (6.5-10.1); PLATELET COUNT 164 K/UL (150-450); RED BLOOD COUNT 3.43 M/UL (4.20-5.40); RED CELL DISTRIBUTION WIDTH 17.4 % (11.6-14.8); WHITE BLOOD COUNT 5.7 K/UL (4.8-10.8)
[2016-12-19 06:18] LABS: ALANINE AMINOTRANSFERASE 21 U/L (3-33); ALBUMIN/GLOBULIN RATIO 1.5 (1.0-2.7); ANION GAP 13 (5-15); ASPARTATE AMINO TRANSFERASE 23 U/L (5-40); CALCIUM 8.8 mg/dL (8.6-10.2); CARBON DIOXIDE 30 mEQ/L (20-30); CHLORIDE 98 mEQ/L (98-107); CREATININE 1.1 mg/dL (0.5-0.9); GLOMERULAR FILTRATION RATE 56.2 mL/min (>60); HEMOLYSIS 5; SODIUM 141 mEQ/L (135-145); TOTAL PROTEIN 5.8 g/dL (6.6-8.7)
[2016-12-19 08:00] VITALS: BP 136/77
[2016-12-19] MEDS: Lisinopril 20mg tab ORAL SCH (08:10)
--- NOTE | 2016-12-19 10:21 | Diagnostic Imaging Report ---
Indication: Abnormal chest sounds Technique: One view of the chest Comparison: 12/18/2016 Findings: Left arm PICC remains. Lungs and pleural spaces are clear. Normal heart size Impression: No acute process
--- NOTE | 2016-12-19 10:49 | Infectious Diseases Prog Note ---
Assessment/Plan Assessment/Plan antibiotics : vancomycin iv A 1. thoracic spine osteomyelitis 2. fever improving 3. lupus 4. anemia P 1. continue iv vancomycin 2. will follow up cultures Subjective ROS Limited/Unobtainable: Yes Allergies: Coded Allergies: CHLORHEXIDINE (Unverified Allergy, Unknown, 12/18/16) KETOROLAC (Verified Allergy, Unknown, 09/25/16) NSAIDS (NON-STEROIDAL ANTI-INFLAMMA (Verified Allergy, Unknown, 09/25/16) SULFA (SULFONAMIDE ANTIBIOTICS) (Verified Allergy, Unknown, 09/25/16) Uncoded Allergies: CT CONTRAST (Allergy, Unknown, 09/25/16) CT Contrast PLASTIC (Allergy, Unknown, 09/25/16) Plastic tape Objective Vital Signs Last 24 Hour Vital Signs Date Time Temp Pulse Resp B/P Pulse Ox O2 Delivery O2 Flow Rate FiO2 12/19/16 08:10 136/68 12/19/16 08:03 98.0 12/19/16 08:00 105 12/19/16 08:00 98.1 100 20 136/77 92 Room Air 12/19/16 07:23 96 18 Room Air 12/19/16 07:23 94 16 96 Room Air 12/19/16 04:00 98.0 68 18 140/75 97 Room Air 12/19/16 04:00 108 12/19/16 00:54 98.0 66 20 134/62 94 Room Air 12/19/16 00:00 101 12/18/16 20:00 98.4 112 18 124/75 94 Room Air 12/18/16 20:00 116 12/18/16 18:59 107 18 98 Room Air 12/18/16 18:51 107 18 96 Room Air 12/18/16 18:50 107 18 Room Air 12/18/16 18:04 122/91 12/18/16 16:00 98.8 96 18 122/91 95 Room Air 12/18/16 12:00 97.9 101 18 117/78 93 Room Air 12/18/16 12:00 112 Height (Feet): 5 Height (Inches): 3.00 Weight (Pounds): 198 Respiratory/Chest: lungs clear Cardiovascular: normal rate, regular rhythm, no gallop/murmur Abdomen: soft, non tender Extremities: no edema Laboratory Tests Test 12/19/16 05:00 White Blood Count 5.7 K/UL (4.8-10.8) Red Blood Count 3.43 M/UL (4.20-5.40) L Hemoglobin 10.0 G/DL (12.0-16.0) L Hematocrit 32.5 % (37.0-47.0) L Mean Corpuscular Volume 95 FL (80-99) Mean Corpuscular Hemoglobin 29.2 PG (27.0-31.0) Mean Corpuscular Hemoglobin Concent 30.9 G/DL (32.0-36.0) L Red Cell Distribution Width 17.4 % (11.6-14.8) H Platelet Count 164 K/UL (150-450) Mean Platelet Volume 6.7 FL (6.5-10.1) Neutrophils (%) (Auto) % (45.0-75.0) Lymphocytes (%) (Auto) % (20.0-45.0) Monocytes (%) (Auto) % (1.0-10.0) Eosinophils (%) (Auto) % (0.0-3.0) Basophils (%) (Auto) % (0.0-2.0) Sodium Level 141 mEQ/L (135-145) Potassium Level 4.0 mEQ/L (3.4-4.9) Chloride Level 98 mEQ/L (98-107) Carbon Dioxide Level 30 mEQ/L (20-30) Anion Gap 13 (5-15) Blood Urea Nitrogen 11 mg/dL (7-23) Creatinine 1.1 mg/dL (0.5-0.9) H Estimat Glomerular Filtration Rate 56.2 mL/min (>60) Glucose Level 101 mg/dL (74-106) Calcium Level 8.8 mg/dL (8.6-10.2) Magnesium Level 2.0 mg/dL (1.7-2.5) Total Bilirubin < 0.2 mg/dL (0.0-1.2) Aspartate Amino Transf (AST/SGOT) 23 U/L (5-40) Alanine Aminotransferase (ALT/SGPT) 21 U/L (3-33) Alkaline Phosphatase 58 U/L (35-104) Pro-B-Type Natriuretic Peptide 55 pg/mL (0-125) Total Protein 5.8 g/dL (6.6-8.7) L Albumin 3.5 g/dL (3.5-5.2) Globulin 2.3 g/dL Albumin/Globulin Ratio 1.5 (1.0-2.7) JAY ISRAEL Dec 19, 2016 10:48
[2016-12-19 12:00] VITALS: BP 125/85
[2016-12-19 16:00] VITALS: BP 111/75
[2016-12-19] MEDS ORDERED: Oxycodone/Acetaminophen 5-325 ORAL PRN (16:00)
[2016-12-19] MEDS ORDERED: Tubing IV Secondary IV ONE (16:21)
[2016-12-19] MEDS: Xarelto 10mg tab ORAL SCH (16:58)
[2016-12-20] MEDS ORDERED: Vancomycin 1.25 GM in D5W 275 ML IVPB SCH (02:00)
--- NOTE | 2016-12-21 13:12 | Discharge Summary ---
Discharge Summary Hospital Course Date of Admission Dec 13, 2016 at 15:15 Date of Discharge Dec 19, 2016 at 17:15 Admitting Diagnosis chest pain HPI Kirsty Sterling is a 36 year old female who was admitted on Dec 13, 2016 at 15: 15 for Chest Pain Hospital Course [id number] Discharge Discharge Disposition Patient was discharged to SNF/Subacute Facility(03) Discharge Diagnoses: Izabel Malin NP Dec 21, 2016 13:12
--- NOTE | 2016-12-22 01:58 | Discharge Summary 2 SIG ---
DATE OF ADMISSION: 12/13/2016 DATE OF DISCHARGE: 12/19/2016 VIDEO MACHINES MECHANIC: Batsheva Domingo M.D. BRIEF HOSPITAL COURSE: The patient is a 36-year-old white female with history of systemic lupus and pulmonary emboli, who is on chronic anticoagulation with rivaroxaban 20 mg daily, which she takes religiously. The patient had pulmonary emboli in the past and has been on anticoagulation. She presented to ED complaining of chest pain and shortness of breath radiating to her left breast to back. She also has a PICC line and is receiving intravenous antibiotics for osteomyelitis at home. Initial chest x-ray on evaluation at ED, showed no acute process with poor inspiratory effort. Electrocardiogram showed sinus tachycardia, otherwise normal. Chest and thoracic CTA was negative for PE. Echocardiogram done showed left ventricular ejection fraction of 55%. She continued to have chest pain with deep inspiration and cough and gets fatigued. Dr. Domingo was consulted and the patient was given IV vancomycin. Blood culture did not isolate any growth. She was eventually discharged to [facility], to continue IV antibiotics for 30 days. FINAL DIAGNOSES: 1. Thoracic spine osteomyelitis. 2. Bronchospasm. 3. Possible acute bronchitis. 4. Systemic lupus. 5. Acute diastolic congestive heart failure. 6. Hypercoagulable state. 7. History of pulmonary embolism with inferior vena cava filter. 8. Hypokalemia. 9. Hypomagnesemia. 10. Iron deficiency with chronic anemia. 11. Mild protein-calorie malnutrition. 12. Hypertensive heart disease with elevated blood pressure. Marcello Wallis M.D. I have been assigned to dictate discharge summary on this account and I was not involved in the patient's management. Izabel Malin N.P. DR: CONCEPCION JOB#: [id number] CC: JEAN
== END 2016-12-19 17:15 | DRG 539 ==
LOC: EMR 13:42 → 2W 15:15 → EDBEDREQ 22:20
DX: M46.24 Osteomyelitis of vertebra, thoracic region (principal); I50.31 Acute diastolic (congestive) heart failure; D68.9 Coagulation defect, unspecified; M32.9 Systemic lupus erythematosus, unspecified; E83.42 Hypomagnesemia; E44.1 Mild protein-calorie malnutrition; R07.9 Chest pain, unspecified; G89.4 Chronic pain syndrome; D64.9 Anemia, unspecified; Z86.711 Personal history of pulmonary embolism; Z79.01 Long term (current) use of anticoagulants; E66.9 Obesity, unspecified; Z68.35 Body mass index [BMI] 35.0-35.9, adult; E87.6 Hypokalemia; B95.8 Unspecified staphylococcus as the cause of diseases classified elsewhere; J20.9 Acute bronchitis, unspecified; D50.9 Iron deficiency anemia, unspecified; I11.0 Hypertensive heart disease with heart failure; Z88.2 Allergy status to sulfonamides; Z88.8 Allergy status to other drugs, medicaments and biological substances; Z91.041 Radiographic dye allergy status; J98.01 Acute bronchospasm
CPT/HCPCS: 36415; 71010; 71020; 71275; 80048; 80053; 80202; 81003; 81025; 82550; 82962; 83540; 83550; 83605; 83735; 83880; 84484; 85007; 85025; 85362; 85610; 85651; 85730; 86850; 86870; 86900; 86901; 87040; 93005; 93306; 94640; 94664; J2405; J7620; J8499

== ENCOUNTER 2017-03-02 00:29 | Inpatient (IN) | payer MEDICARE ==
[~2017-03-02] VITALS: Ht 160 cm; Wt 88.9 kg
[2017-03-02] VITALS (7 sets, daily range): BP systolic 122–158; BP diastolic 77–109
--- NOTE | 2017-03-02 01:11 | Emergency Room Report ---
History of Present Illness General Chief Complaint: Chest Pain Source: Patient Present Illness HPI Patient presents after a syncopal episode. When she woke she had left-sided weakness that was transient. There were no visual changes at that time. She's having left-sided chest pain that's fairly sharp radiating towards her back under her left breast. She takes Dilaudid 2 mg every 4 hours. She's also has a history of pulmonary emboli. She had TIAs in the past but these were associated with visual changes. She denies any headache at this time. She is on Xarelto. No bleeding. No fevers. She passed out with similar symptoms in December. No head trauma when she passed out. The patient is fairly complicated with osteomyelitis of her spine. She takes vancomycin 1 g every 12 hours via PICC line. She is scheduled to have surgery at [facility]. There is no change in the pain and no increased weakness or numbness. 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 She's in the process of moving to [place]. She's travelling [id number]. Her private doctor is in the [employer] and she has a spine surgeon at [facility]. She has Lupus and is on Plaquenil. She denies depression and is looking forward to the scheduled surgery. No dysuria. No dyspnea at this time. No URI sy. She has used an inhaler in the past. She feels she does not need one now. She was admitted 12/13 for similar complaints. These are her discharge diagnoses: 1. Thoracic spine osteomyelitis. 2. Bronchospasm. 3. Possible acute bronchitis. 4. Systemic lupus. 5. Acute diastolic congestive heart failure. 6. Hypercoagulable state. 7. History of pulmonary embolism with inferior vena cava filter. 8. Hypokalemia. 9. Hypomagnesemia. 10. Iron deficiency with chronic anemia. 11. Mild protein-calorie malnutrition. 12. Hypertensive heart disease with elevated blood pressure. CTA 12/14 IMPRESSION: No evidence of pulmonary embolism or other significant acute thoracic pathology Pulmonary bibasal subsegmental atelectasis Borderline cardiomegaly PICC Degenerative spondylosis Allergies: Coded Allergies: CHLORHEXIDINE (Unverified Allergy, Unknown, 12/18/16) KETOROLAC (Verified Allergy, Unknown, 09/25/16) NSAIDS (NON-STEROIDAL ANTI-INFLAMMA (Verified Allergy, Unknown, 09/25/16) SULFA (SULFONAMIDE ANTIBIOTICS) (Verified Allergy, Unknown, 09/25/16) Uncoded Allergies: CT CONTRAST (Allergy, Unknown, 09/25/16) CT Contrast PLASTIC (Allergy, Unknown, 09/25/16) Plastic tape Patient History Past Medical History: see triage record Past Surgical History: other - spinal surgery for osteo Social History: Denies: smoking Social History Narrative 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 [employer] Last Menstrual Period: 02/19/17 Now: No Reviewed Nursing Documentation: PMH: Agreed, PSxH: Agreed Nursing Documentation-PMH Past Medical History: No History, Except For Hx Cancer: No Hx Gastrointestinal Problems: No Review of Systems All Other Systems: negative except mentioned in HPI Physical Exam Vital Signs Date Time Temp Pulse Resp B/P Pulse Ox O2 Delivery O2 Flow Rate FiO2 03/02/17 00:36 97.9 116 16 164/102 97 Room Air Sp02 EP Interpretation: reviewed, normal General Appearance: well appearing, no apparent distress, GCS 15, obese Head: normocephalic, atraumatic Eyes: bilateral eye PERRL, bilateral eye normal inspection ENT: moist mucus membranes Neck: supple Respiratory: chest non-tender, lungs clear, normal breath sounds Cardiovascular #1: regular rate, rhythm Cardiovascular #2: 2+ radial (R), 2+ radial (L) - PICC line present Gastrointestinal: normal inspection, normal bowel sounds, non tender, no mass, non-distended Musculoskeletal: back normal, gait/station normal, normal range of motion, no calf tenderness, pelvis stable Neurologic: alert, oriented x3, fine patcher III-XII nml as tested, motor strength/tone normal, DTRs symmetric, sensory intact, cerebellar normal, normal gait, speech normal Psychiatric: mood/affect normal Skin: normal inspection, warm/dry Medical Decision Making Diagnostic Impression: Primary Impression: Syncope Qualified Codes: R55 - Syncope and collapse Additional Impressions: Chest pain Qualified Codes: R07.9 - Chest pain, unspecified Chronic osteomyelitis of spine Chronic anticoagulation Opiate dependence Qualified Codes: F11.20 - Opioid dependence, uncomplicated H/O systemic lupus erythematosus (SLE) ER Course Patient presents post syncope with chest pain. Ddx: PE, arrhythmia, volume depletion, vasovagal amongst others. She is a very complex patient requiring extensive evaluation. Labs, EKG, CXR will be obtained. No evidence of CVA ( weakness was transient), CT head not indicated. Patient will receive gentle IV hydration and analgesia with cardiac and neurologic evaluation/observation. Due to contrast allergy, not able to perform CTA. EKG unremarkable. CXR with PICC. Labs unremarkable. Improved with treatment. Non-focal neuro. Vancomycin ordered. Analgesia repeated. Patient needs admission with cardiac monitoring. Admit Dr. Wallis. Laboratory Tests Test 03/02/17 00:54 03/02/17 12:20 White Blood Count 12.5 K/UL (4.8-10.8) H Red Blood Count 3.48 M/UL (4.20-5.40) L Hemoglobin 10.3 G/DL (12.0-16.0) L Hematocrit 32.8 % (37.0-47.0) L Mean Corpuscular Volume 94 FL (80-99) Mean Corpuscular Hemoglobin 29.7 PG (27.0-31.0) Mean Corpuscular Hemoglobin Concent 31.6 G/DL (32.0-36.0) L Red Cell Distribution Width 15.0 % (11.6-14.8) H Platelet Count 263 K/UL (150-450) Mean Platelet Volume 6.2 FL (6.5-10.1) L Neutrophils (%) (Auto) 84.5 % (45.0-75.0) H Lymphocytes (%) (Auto) 6.6 % (20.0-45.0) L Monocytes (%) (Auto) 8.2 % (1.0-10.0) Eosinophils (%) (Auto) 0.3 % (0.0-3.0) Basophils (%) (Auto) 0.5 % (0.0-2.0) Prothrombin Time 11.8 SEC (9.30-11.50) H Prothrombin Time INR 1.2 (0.9-1.1) H PTT 24 SEC (23-33) Urine Color Yellow Urine Appearance Clear Urine pH 5 (4.5-8.0) Urine Specific [place] 1.025 (1.005-1.035) Urine Protein 2+ (NEGATIVE) H Urine Glucose (UA) Negative (NEGATIVE) Urine Ketones 1+ (NEGATIVE) H Urine Occult Blood 1+ (NEGATIVE) H Urine Nitrite Negative (NEGATIVE) Urine Bilirubin Negative (NEGATIVE) Urine Urobilinogen Normal MG/DL (0.0-1.0) Urine Leukocyte Esterase 1+ (NEGATIVE) H Urine RBC 2-4 /HPF (0 - 2) H Urine WBC 2-4 /HPF (0 - 2) Urine Squamous Epithelial Cells Moderate /LPF (NONE/OCC) H Urine Calcium Oxalate Crystals Moderate /LPF (NONE) Urine Bacteria Few /HPF (NONE) Urine Mucus Moderate /LPF (NONE/OCC) H Urine HCG, Qualitative Negative Sodium Level 139 mEQ/L (135-145) Potassium Level 4.2 mEQ/L (3.4-4.9) Chloride Level 101 mEQ/L (98-107) Carbon Dioxide Level 28 mEQ/L (20-30) Anion Gap 10 (5-15) Blood Urea Nitrogen 27 mg/dL (7-23) H Creatinine 1.2 mg/dL (0.5-0.9) H Estimate Glomerular Filtration Rate 50.8 mL/min (>60) Glucose Level 107 mg/dL (74-106) H Calcium Level 8.6 mg/dL (8.6-10.2) Total Bilirubin < 0.2 mg/dL (0.0-1.2) Aspartate Amino Transferase (AST) 16 U/L (5-40) Alanine Aminotransferase (ALT) 24 U/L (3-33) Alkaline Phosphatase 70 U/L (35-104) Total Creatine Kinase 20 U/L (26-140) L Troponin I < 0.30 ng/mL (<=0.30) < 0.30 ng/mL (<=0.30) Pro-B-Type Natriuretic Peptide 127 pg/mL (0-125) H Total Protein 5.9 g/dL (6.6-8.7) L Albumin 3.5 g/dL (3.5-5.2) Globulin 2.4 g/dL Albumin/Globulin Ratio 1.4 (1.0-2.7) EKG Diagnostic Results Rate: tachycardiac Rhythm: NSR ST Segments: no acute changes Rhythm Strip Diag. Results EP Interpretation: yes Rhythm: no PVC's, no ectopy, other - ST Chest X-Ray Diagnostic Results EP Interpretation: Yes Findings: no consolidation, no effusion, no pneumothorax, no acute cardiopulmonary disease, other - PICC Number of Views: 1 Last Vital Signs Date Time Temp Pulse Resp B/P Pulse Ox O2 Delivery O2 Flow Rate FiO2 03/02/17 00:59 116 16 Room Air 03/02/17 00:36 97.9 164/102 97 Status: improved Disposition: ADMITTED INPATIENT Condition: Serious Referrals: NON PHYSICIAN (PCP) Marcello Patel M.D. Mar 02, 2017 01:11
[2017-03-02] MEDS ORDERED: HYDROmorphone 1mg/ml Carpuject IVP ONE ×3 (01:15→06:00)
[2017-03-02] MEDS ORDERED: DiphenhydrAMINE 50mg/ml Inj IVP ONE ×3 (01:15→06:00)
[2017-03-02 01:21] LABS: APPEARANCE,URINE CLEAR; BASOPHILS % (AUTO) 0.5 % (0.0-2.0); EOSINOPHILS % (AUTO) 0.3 % (0.0-3.0); KETONES,URINE 1+ (NEGATIVE); LEUKOCYTE ESTERASE ,URINE 1+ (NEGATIVE); LYMPHOCYTES % (AUTO) 6.6 % (20.0-45.0); MEAN CORPUSCULAR HEMOGLOBIN 29.7 PG (27.0-31.0); MEAN CORPUSCULAR HGB CONC 31.6 G/DL (32.0-36.0); MEAN CORPUSCULAR VOLUME 94 FL (80-99); MEAN PLATELET VOLUME 6.2 FL (6.5-10.1); MONOCYTES % (AUTO) 8.2 % (1.0-10.0); NEUTROPHILS % (AUTO) 84.5 % (45.0-75.0); NITRITE,URINE NEGATIVE (NEGATIVE); PH,URINE 5 (4.5-8.0); PLATELET COUNT 263 K/UL (150-450); PROTEIN,URINE 2+ (NEGATIVE); RED BLOOD COUNT 3.48 M/UL (4.20-5.40); UROBILINOGEN,URINE NORMAL MG/DL (0.0-1.0); WHITE BLOOD COUNT 12.5 K/UL (4.8-10.8)
[2017-03-02 01:32] LABS: INR 1.2 (0.9-1.1); PROTHROMBIN TIME 11.8 SEC (9.30-11.50)
[2017-03-02 01:37] LABS: BACTERIA,URINE FEW /HPF; CALCIUM OXALATE CRYSTALS,UR MODERATE /LPF; SQUAMOUS EPITHELIAL CELL,UR MODERATE /LPF (NONE/OCC)
[2017-03-02 01:38] LABS: MUCUS,URINE MODERATE /LPF (NONE/OCC)
[2017-03-02 01:39] LABS: ALANINE AMINOTRANSFERASE 24 U/L (3-33); ALBUMIN/GLOBULIN RATIO 1.4 (1.0-2.7); ANION GAP 10 (5-15); ASPARTATE AMINO TRANSFERASE 16 U/L (5-40); CALCIUM 8.6 mg/dL (8.6-10.2); CARBON DIOXIDE 28 mEQ/L (20-30); CHLORIDE 101 mEQ/L (98-107); CREATININE 1.2 mg/dL (0.5-0.9); GLOMERULAR FILTRATION RATE 50.8 mL/min (>60); HEMOLYSIS 6; POTASSIUM 4.2 mEQ/L (3.4-4.9); SODIUM 139 mEQ/L (135-145); TOTAL PROTEIN 5.9 g/dL (6.6-8.7)
[2017-03-02 01:45] LABS: TROPONIN I < 0.30 ng/mL (<=0.30)
[2017-03-02] MEDS ORDERED: VANCOMYCIN1 GM/2502 IVPB ×2 (04:20→04:25)
[2017-03-02] MEDS ORDERED: DILAUDID2 MG IV (04:25)
[2017-03-02] MEDS ORDERED: AMBIEN10 M1 ORAL (04:25)
[2017-03-02] MEDS ORDERED: BENADRYL25 MG IV (04:25)
[2017-03-02] MEDS ORDERED: PLAQUENIL200 MG ORAL (04:25)
[2017-03-02] MEDS ORDERED: XARELTO10 MG ORAL (04:25)
[2017-03-02] MEDS ORDERED: Vancomycin 1 GM in D5W 275 ML IVPB ONE (06:00)
[2017-03-02] MEDS ORDERED: Vancomycin 1gm inj IVPB ONE (06:07)
[2017-03-02] MEDS ORDERED: Zolpidem 5mg tab ORAL PRN (09:45)
[2017-03-02] MEDS: Xarelto 10mg tab ORAL SCH (11:37)
--- NOTE | 2017-03-02 11:39 | Diagnostic Imaging Report ---
Indication: Chest pain Technique: One view of the chest Comparison: 12/19/2016 Findings: Lungs and pleural spaces are clear. Heart size is normal. There is a left arm PICC, tip projected at the level of the mid superior vena cava again demonstrated Impression: No acute process
[2017-03-02 13:01] LABS: TROPONIN I < 0.30 ng/mL (<=0.30)
[2017-03-02] MEDS: DiphenhydrAMINE 50mg/ml Inj IVP PRN ×2 (14:44→20:48)
[2017-03-03] VITALS: BP 138/96
[2017-03-03 04:20] VITALS: BP 143/99
--- NOTE | 2017-03-03 05:38 | History and Physical Report ---
DATE OF ADMISSION: 03/02/2017 REASON FOR ADMISSION: Chest pain and syncopal episode. HISTORY OF PRESENT ILLNESS: This is a 36-year-old white female with systemic lupus. She woke up with transient left-sided weakness and chest pain, which radiated through her left breast to the back. She apparently passed out for a few seconds. She has had previous episodes and was here in December under my care. PAST MEDICAL HISTORY: Includes osteomyelitis of the spine, history of DVT and pulmonary emboli, systemic lupus, bronchospasm, osteomyelitis of the thoracic spine, hypercoagulable state, hypertension with chronic diastolic congestive heart failure, history of IVC filter, iron deficiency anemia, protein-calorie malnutrition mild, history of hypokalemia and hypomagnesemia. ALLERGIES: Include chlorhexidine, Ketoralac, nonsteroidals and sulfa. FAMILY HISTORY: Noncontributory. CURRENT MEDICATIONS: Reviewed and reconciled. REVIEW OF SYSTEMS: No fevers or chills. She is on IV vancomycin. Limited mobility. She is on chronic anticoagulation and chronic immunosuppressants. An echocardiogram in 01/2017 revealed normal ejection fraction. She has a history of wheezing at times especially with bronchitis. PHYSICAL EXAMINATION: GENERAL: Presently, in no acute distress. VITAL SIGNS: Afebrile. Blood pressure 164/102, pulse 116, and respirations 16, and lying flat. NECK: Supple. Difficult to assess jugular venous pressure. HEENT: Arcus senilis. Eyes, conjunctivae pink. Sclerae are anicteric. ABDOMEN: Soft. LUNGS: Clear. CARDIAC: Regular rhythm and rate. Normal S1 and S2 with a fourth heart sound. Tenderness to palpation of sternum. EXTREMITIES: No edema. Muscle atrophy noted. LABORATORY AND DIAGNOSTIC DATA: White count 12.5 and hemoglobin 10.3. Troponin #1 is negative. Urinalysis with 1+ leukocyte esterase and 2 to 4 white cells. BUN 27, creatinine 1.2, and potassium 4.2. EKG sinus tachycardia with no acute abnormality. Chest x-ray with no acute process. IMPRESSION: 1. Chest pain syndrome, etiologies can include ischemia, pleural pericarditic due to lupus, history of pulmonary embolism, musculoskeletal. 2. Systemic lupus. 3. Anemia. 4. Hypokalemia. 5. Hypertension, out of control. PLAN: 1. Serial troponins. 2. Cardiac monitoring. 3. DVT prophylaxis. 4. Continue full anticoagulation with rivaroxaban. 5. Reassess continued use of antibiotics. 6. Maintain other cardiovascular regimen without titration to optimize blood pressure control. Marcello Wallis M.D. DR: CLARE JOB#: [id number] CC:
[2017-03-03] MEDS: DiphenhydrAMINE 50mg/ml Inj IVP PRN ×3 (06:43→18:51)
[2017-03-03 07:41] VITALS: BP 139/105
[2017-03-03] MEDS: Xarelto 10mg tab ORAL SCH (09:02)
[2017-03-03 11:21] VITALS: BP 120/78
[2017-03-03 15:35] VITALS: BP 134/93
[2017-03-03] MEDS: DuoNeb 0.5-3(2.5)mg/3ml neb HHN SCH ×2 (18:57→23:00)
[2017-03-03 20:00] VITALS: BP 142/98
[2017-03-04] VITALS: BP_SYST 132; BP_SYST 137; BP_DIAS 83
[2017-03-04] MEDS: DiphenhydrAMINE 50mg/ml Inj IVP PRN ×3 (00:38→18:35)
[2017-03-04] MEDS: DuoNeb 0.5-3(2.5)mg/3ml neb HHN SCH ×6 (03:00→23:00)
[2017-03-04 08:02] VITALS: BP 144/98
[2017-03-04] MEDS: Xarelto 10mg tab ORAL SCH (08:40)
--- NOTE | 2017-03-04 09:28 | Diagnostic Imaging Report ---
Indications: Abnormal chest sounds Technique: Portable AP chest Findings: Comparison: 03/02/17 Cardiac silhouette remains normal in size. Pulmonary vasculature remains within normal limits. Lungs and pleura remain clear. Elevation of the apparent hemidiaphragm, left C. PICC with tip in region of superior vena cava unchanged. IMPRESSION: No evidence of acute disease, unchanged Stable chronic changes as described
[2017-03-04] MEDS ORDERED: Cathflo Alteplase 2mg Inj INJ ONE ×2 (11:00→17:00)
[2017-03-04 11:33] VITALS: BP 118/71
[2017-03-04 15:30] VITALS: BP 130/85
[2017-03-04 19:27] LABS: ALANINE AMINOTRANSFERASE 23 U/L (3-33); ALBUMIN/GLOBULIN RATIO 1.6 (1.0-2.7); ANION GAP 12 (5-15); ASPARTATE AMINO TRANSFERASE 16 U/L (5-40); CALCIUM 8.2 mg/dL (8.6-10.2); CARBON DIOXIDE 29 mEQ/L (20-30); CHLORIDE 102 mEQ/L (98-107); GLOMERULAR FILTRATION RATE > 60 mL/min (>60); HEMOLYSIS 3; POTASSIUM 3.7 mEQ/L (3.4-4.9); SODIUM 143 mEQ/L (135-145); TOTAL PROTEIN 5.5 g/dL (6.6-8.7)
[2017-03-04 19:38] LABS: BASOPHILS % (AUTO) 1.3 % (0.0-2.0); EOSINOPHILS % (AUTO) 0.6 % (0.0-3.0); LYMPHOCYTES % (AUTO) 16.1 % (20.0-45.0); MEAN CORPUSCULAR HEMOGLOBIN 31.1 PG (27.0-31.0); MEAN CORPUSCULAR HGB CONC 33.1 G/DL (32.0-36.0); MEAN CORPUSCULAR VOLUME 94 FL (80-99); MEAN PLATELET VOLUME 5.9 FL (6.5-10.1); MONOCYTES % (AUTO) 8.5 % (1.0-10.0); NEUTROPHILS % (AUTO) 73.6 % (45.0-75.0); PLATELET COUNT 196 K/UL (150-450); RED BLOOD COUNT 3.26 M/UL (4.20-5.40); RED CELL DISTRIBUTION WIDTH 14.3 % (11.6-14.8); WHITE BLOOD COUNT 7.5 K/UL (4.8-10.8)
[2017-03-04 20:00] VITALS: BP 141/82
[2017-03-05] VITALS: BP 141/88
[2017-03-05] MEDS: DiphenhydrAMINE 50mg/ml Inj IVP PRN ×3 (01:06→13:48)
[2017-03-05 04:00] VITALS: BP 128/90
--- NOTE | 2017-03-05 05:29 | Progress Note ---
DATE: 03/04/2017 SUBJECTIVE: The patient's wheezing has resolved. Chest x-ray reviewed and revealed no acute process. The patient continues to have episodes of sinus tachycardia. It is asymptomatic. The patient's PICC line was clotted today. Efforts were made to declot the line. The patient is positive for VRE of the rectum. OBJECTIVE: GENERAL: Moderate obesity. LUNGS: Diminished breath sounds. No wheezing. HEART: Regular rhythm. Rapid rate. Normal S1 and S2. ABDOMEN: Soft. EXTREMITIES: With trace edema. LABORATORY DATA: White count is 7.5 and hemoglobin 10.1. Potassium is 3.7, BUN 13, and creatinine 1. TSH is 5.5. IMPRESSION: 1. Chronic pain. 2. Osteomyelitis of the spine. 3. Systemic lupus hypercoagulable state. 4. History of deep venous thrombosis and IVC filter with history of pulmonary emboli as well. 5. Secondary sinus tachycardia. 6. Poor peripheral access. 7. Clotted PICC line. 8. Paroxysmal bronchospasm. PLAN: Continue anticoagulation, p.r.n. bronchodilators, pain control, and beta-max. Continue Plaquenil. Await spine surgery. Discharge planning. Repeat thyroid function and consider replacement if remains with elevated TSH and low T4. Marcello Wallis M.D. DR: Pamela JOB#: [id number] CC:
--- NOTE | 2017-03-05 06:29 | Progress Note ---
DATE: 03/03/2017 CARDIOLOGY PROGRESS NOTE SUBJECTIVE: The patient has cough and wheezing. No chest pain. Some shortness of breath. OBJECTIVE: VITAL SIGNS: Blood pressure 142/98, pulse 107, respiratory rate 20, she is afebrile, and room air oxygen sat 100%. LUNGS: Few rhonchi and expiratory wheezes. HEART: Regular rhythm. Rapid rate. Normal S1, S2. ABDOMEN: Soft. EXTREMITIES: Trace edema. IMPRESSION: 1. Secondary sinus tachycardia. 2. History of deep venous thrombosis and pulmonary emboli. 3. Systemic lupus. 4. Hypercoagulable state. 5. Chronic osteomyelitis of the spine. 6. Acute bronchospasm. 7. Chronic pain. PLAN: 1. Inhaled bronchodilators. 2. Check chest x-ray. 3. Consider beta-max. 4. Full anticoagulation. 5. Pain control. Marcello Wallis M.D. DR: Estefania JOB#: [id number] CC:
[2017-03-05] MEDS: DuoNeb 0.5-3(2.5)mg/3ml neb HHN SCH ×4 (07:00→15:00)
[2017-03-05 08:00] VITALS: BP 149/99
[2017-03-05] MEDS: Xarelto 10mg tab ORAL SCH (08:24)
[2017-03-05 12:00] VITALS: BP 150/66
[2017-03-06] MEDS ORDERED: METOPROLOL SUCC25 MG ORAL (14:23)
--- NOTE | 2017-03-06 14:24 | Discharge Summary ---
Discharge Summary Hospital Course Date of Admission Mar 02, 2017 at 01:22 Date of Discharge Mar 05, 2017 at 16:05 Admitting Diagnosis syncope HPI Kirsty Sterling is a 36 year old female who was admitted on Mar 02, 2017 at 01 :22 for Syncope Hospital Course dc summary #[id number] Discharge Medications New Medications: Metoprolol Succinate* (Metoprolol Succinate*) 25 Mg Tab.er.24h 25 MG ORAL DAILY, #30 TAB Continued Medications: Hydroxychloroquine Sulfate* (Plaquenil*) 200 Mg Tablet 400 MG ORAL DAILY, TAB Rivaroxaban (Xarelto*) 10 Mg Tablet 20 MG ORAL DAILY, #30 TAB 0 Refills Zolpidem Tartrate* (Ambien*) 10 Mg Tablet 10 MG ORAL HS PRN for Insomnia, TAB Discharge Condition Upon Discharge: stable Discharge Disposition Patient was discharged to Home () Discharge Diagnoses: Discharge Instructions Discharge Instructions Special Instructions I have been assigned to complete a D/C Summary on this account. I was not involved in the patient management Carmen Gaspar NP (Vanchtein) Mar 06, 2017 14:24
--- NOTE | 2017-03-07 00:37 | Discharge Summary 2 SIG ---
DATE OF ADMISSION: 03/02/2017 DATE OF DISCHARGE: 03/05/2017 REASON FOR ADMISSION AND HISTORY OF PRESENT ILLNESS: This is a 36-year-old female, presented to the emergency room for evaluation. The patient is with a history of systemic lupus erythematous, chronic osteomyelitis of the spine, chronic opiate dependency, history of PE, chronically on anticoagulation, and hypertension. She woke up with left-sided weakness and chest pain radiated down to her left breast and to the back. She apparently passed out for a few seconds. She had a previous episode like that. Workup in the emergency room revealed mild leukocytosis with white count of 12.5 and hemoglobin 10.3. Troponin negative. Urinalysis, +1 leukocyte esterase and 2-4 white cells, BUN 27, and creatinine 1.2. EKG, sinus tachycardia, no ischemic changes. Chest x-ray, no acute process. The patient was admitted for further management to telemetry floor. ADMITTING DIAGNOSES: 1. Chest pain syndrome, etiology could be ischemic versus pleural versus pericarditis secondary to lupus and history of pulmonary embolism versus musculoskeletal. 2. Systemic lupus erythematosus. 3. Anemia of chronic disease. 4. Hypokalemia. 5. Hypertension. HOSPITAL STAY: The patient admitted to telemetry floor. Troponin x2 were negative. Xarelto was resumed and continued. The patient initially started on antibiotics. Leukocytosis resolved. Urinalysis negative. No fever. Antibiotic discontinued. Blood pressure medication was optimized and was stable with current regimen. Supplemental oxygen and nebulizing treatment provided as needed. Pain management provided. Blood cannula was continued for lupus. Noted elevated TSH. Repeat thyroid function test as an outpatient and if TSH is still elevated, and may need thyroid function test as an outpatient. EKG was unremarkable. Serial troponin x2 were negative. Thus, she ruled out for acute myocardial infarction. The patient had no evidence of CVA since. All of her symptoms were transient and no focal neuro deficits. CT of the head was not indicated. The patient initially received gentle IV fluid hydration. Analgesic provided. The patient was observed and monitored for neurological status, but no focal neuro deficits noted. Chest x-ray revealed no acute cardiopulmonary pathology. The patient was stable for discharge home and follow up with the primary medical doctor. DISCHARGE DIAGNOSES: 1. Chest pain syndrome. 2. Systemic lupus erythematosus. 3. Hypercoagulable state. 4. History of pulmonary embolism. 5. Chronic anticoagulation. 6. Chronic osteomyelitis of spine. 7. Opiate dependency. 8. Anemia of chronic disease. Of note, no change in hemoglobin and hematocrit, monitored as an outpatient. 9. Hypokalemia, potassium repleted and hypokalemia resolved. 10. Hypertensive urgency. Antihypertensive regimen was optimized. 11. Paroxysmal bronchospasm and sinus tachycardia. Of note, the patient was given supplemental oxygen as needed as well as bronchodilators. Bronchospasm resolved. The patient should be considered beta-max as an outpatient if tachycardia continued. The patient was stable for discharge. Marcello Wallis M.D. I have been assigned to dictate discharge summary on this account and I was not involved in the patient's management. Carmen Cadetstony brook eastern long island hospitalBoby N.PVioleta DR: Candida JOB#: [id number] CC:
== END 2017-03-05 16:05 | disposition home or self-care (01) | DRG 313 ==
LOC: EMR 00:58 → 2E 01:22 → EDBEDREQ 06:29 → 2E 03-03 05:55
DX: R07.89 Other chest pain (principal); D68.62 Lupus anticoagulant syndrome; I50.32 Chronic diastolic (congestive) heart failure; M32.9 Systemic lupus erythematosus, unspecified; I11.0 Hypertensive heart disease with heart failure; F11.20 Opioid dependence, uncomplicated; M46.24 Osteomyelitis of vertebra, thoracic region; G89.29 Other chronic pain; Z86.718 Personal history of other venous thrombosis and embolism; Z86.711 Personal history of pulmonary embolism; D63.8 Anemia in other chronic diseases classified elsewhere; E87.6 Hypokalemia; R55 Syncope and collapse; I16.0 Hypertensive urgency; J98.01 Acute bronchospasm; R00.0 Tachycardia, unspecified; Z88.2 Allergy status to sulfonamides; Z88.8 Allergy status to other drugs, medicaments and biological substances
CPT/HCPCS: 36415; 71010; 80053; 81003; 81025; 82550; 83880; 84443; 84484; 85025; 85610; 85730; 87081; 93005; 94640; 94664; J2405; J7620

== ENCOUNTER 2017-10-13 19:52 | Emergency (ER) | payer MEDICARE ==
[~2017-10-13] VITALS: Ht 160 cm; Wt 85.7 kg
[~2017-10-13 19:52] MED LIST changes: +BENADRYL25 MG IV; +DILAUDID2 MG IV; +METOPROLOL SUCC25 MG ORAL; +VANCOMYCIN1 GM/2502 IVPB
[2017-10-13 20:00] VITALS: BP 177/108
[2017-10-13 20:39] LABS: MEAN CORPUSCULAR HEMOGLOBIN 27.6 PG (27.0-31.0); MEAN CORPUSCULAR HGB CONC 32.5 G/DL (32.0-36.0); MEAN CORPUSCULAR VOLUME 85 FL (80-99); PLATELET COUNT 339 K/UL (150-450); RED BLOOD COUNT 4.11 M/UL (4.20-5.40); RED CELL DISTRIBUTION WIDTH 14.2 % (11.6-14.8); WHITE BLOOD COUNT 19.4 K/UL (4.8-10.8)
[2017-10-13 20:50] LABS: PROTHROMBIN TIME 10.5 SEC (9.30-11.50)
[2017-10-13 20:58] LABS: ANION GAP 10 mmol/L (5-15); CALCIUM 9.3 MG/DL (8.5-10.1); CARBON DIOXIDE 23 MMOL/L (21-32); CHLORIDE 109 MMOL/L (98-107); CREATININE 1.2 MG/DL (0.55-1.30); GLOMERULAR FILTRATION RATE 50.5 mL/min (>60); POTASSIUM 3.9 MMOL/L (3.5-5.1); SODIUM 142 MMOL/L (136-145)
[2017-10-13 21:00] LABS: BAND NEUTROPHILS % (MANUAL) 0 % (0-8); BASOPHILS % (MANUAL) 0 % (0-2); EOSINOPHILS % (MANUAL) 0 % (0-3); LYMPHOCYTES % (MANUAL) 4 % (20-45); NEUTROPHILS % (MANUAL) 91 % (45-75); PLATELET ESTIMATE ADEQUATE; PLATELET MORPHOLOGY NORMAL; TOTAL CELLS COUNTED 100
[2017-10-13 21:07] LABS: ALANINE AMINOTRANSFERASE 11 U/L (12-78); ALBUMIN/GLOBULIN RATIO 1.2 (1.0-2.7); ASPARTATE AMINO TRANSFERASE 12 U/L (15-37); TOTAL PROTEIN 7.1 G/DL (6.4-8.2)
--- NOTE | 2017-10-13 21:09 | Emergency Room Report ---
History of Present Illness General Chief Complaint: Chest Pain Source: Patient Present Illness HPI 37-year-old female with past medical history of lupus, pulmonary embolism, on xarelto, chronic pain with a right upper extremity PICC line giving herself dilaudid and Benadryl, also with spine osteomyelitis getting vanco, p/w chest pain for 3 hours. Chest pain started gradually. Localized to substernal area, no radiation to back or other areas, sharp in nature. Occurred on exertion + rest. + SOB. Worsened with deep inspiration. Denies palpitations, diaphoresis, n /v. Denies fever, chills, cough, abd pain, recent viral illness. Denies trauma. Allergies: Coded Allergies: CHLORHEXIDINE (Unverified Allergy, Unknown, 12/18/16) KETOROLAC (Verified Allergy, Unknown, 09/25/16) NSAIDS (NON-STEROIDAL ANTI-INFLAMMA (Verified Allergy, Unknown, 09/25/16) SULFA (SULFONAMIDE ANTIBIOTICS) (Verified Allergy, Unknown, 09/25/16) Uncoded Allergies: CT CONTRAST (Allergy, Unknown, 09/25/16) CT Contrast PLASTIC (Allergy, Unknown, 09/25/16) Plastic tape Patient History Past Medical History: see triage record Past Surgical History: none Pertinent Family History: none Last Menstrual Period: 3 days ago Reviewed Nursing Documentation: PMH: Agreed, PSxH: Agreed Nursing Documentation-PMH Hx Cardiac Problems: Yes - Hemolytic anemia, PE [id number] Hx Cancer: No Hx Gastrointestinal Problems: No Hx Neurological Problems: Yes - Lupus, Osteomyletis Review of Systems All Other Systems: negative except mentioned in HPI Physical Exam Vital Signs Date Time Temp Pulse Resp B/P (MAP) Pulse Ox O2 Delivery O2 Flow Rate FiO2 10/13/17 19:57 97.9 103 16 177/108 98 Room Air Sp02 EP Interpretation: reviewed, normal General Appearance: normal inspection, well appearing, no apparent distress, alert, GCS 15, non-toxic, other - well appearing, does not appear dyspneic, speaking in complete sentences, smiling, NAD Head: normocephalic, atraumatic Eyes: bilateral eye normal inspection, bilateral eye PERRL, bilateral eye EOMI ENT: normal ENT inspection, normal pharynx, normal voice, moist mucus membranes Neck: normal inspection, full range of motion, supple Respiratory: normal inspection, lungs clear, normal breath sounds, no respiratory distress, no retraction, no wheezing, speaking full sentences, chest symmetrical Cardiovascular #1: normal inspection, regular rate, rhythm, no edema, normal capillary refill, tachycardia Cardiovascular #2: 2+ radial (R), 2+ radial (L) Gastrointestinal: normal inspection, non tender, soft, non-distended, no guarding Musculoskeletal: normal inspection, back normal, normal range of motion, non- tender Neurologic: normal inspection, alert, oriented x3, responsive, motor strength/ tone normal, sensory intact, normal gait, speech normal Psychiatric: normal inspection, judgement/insight normal, memory normal Skin: normal inspection, normal color, no rash, warm/dry, well hydrated, normal turgor Medical Decision Making Diagnostic Impression: Primary Impression: Chest pain Additional Impressions: History of pulmonary embolism Chronic pain ER Course 37-year-old female, history of PE, xarelto, lupus presenting with chest pain DDX: ACS vs. CHF vs. pneumonia vs. gastritis/GERD vs. pneumothorax Possible PE, however patient currently not hypoxic, patient is already on several to Plan: IV access, obtain labs including troponin, EKG, CXR ASA, pain control with nitro / morphine Anticipate admission ER course: Patient has been speaking on the phone, ambulatory around the room, not acute distress, keeps insisting that she needs her Dilaudid and her Benadryl, however she appears calm/nad so I did not feel comfortable administering these meds at this time Unable to obtain CT angio chest as patient states that she has allergy to contrast leukocytosis noted - patient states she is getting vancomycin, dose given here in ED leukocytosis possibly 2/2 to UTI vs. osteomyelitis for which she has been getting vanco for Disposition: Patient requires admission for chest pain, continuation of abx Due to patient's history and comorbidities, patient has increased risk of acute cardiac event. Patient requires admission for further workup, serial troponin, and possible stress test/cath inpatient. D/W hospitalist Dr Wallis Please note that this Emergency Department Report was dictated using [email or web address] adjuster technology software, occasionally this can lead to erroneous entry secondary to interpretation by the dictation equipment. EKG Diagnostic Results EP Interpretation: Yes Rate: Tachycardic Rhythm: NSR ST Segments: No acute changes ASA given to patient: no Rhythm Strip EP Interpretation: Yes Rate: 90 Rhythm: NSR, no PVCs, no ectopy Chest X-ray CXR: Ordered: Yes 1 view Indication: Chest pain EP interpretation: Yes Interpretation: No consolidation, no effusion, no PTX, no acute cardiopulmonary disease Impression: No acute disease Electronically signed by Ansley Wills MD Laboratory Tests Test 10/13/17 20:20 10/13/17 21:41 White Blood Count 19.4 K/UL (4.8-10.8) H Red Blood Count 4.11 M/UL (4.20-5.40) L Hemoglobin 11.3 G/DL (12.0-16.0) L Hematocrit 34.9 % (37.0-47.0) L Mean Corpuscular Volume 85 FL (80-99) Mean Corpuscular Hemoglobin 27.6 PG (27.0-31.0) Mean Corpuscular Hemoglobin Concent 32.5 G/DL (32.0-36.0) Red Cell Distribution Width 14.2 % (11.6-14.8) Platelet Count 339 K/UL (150-450) Mean Platelet Volume 6.0 FL (6.5-10.1) L Neutrophils (%) (Auto) % (45.0-75.0) Lymphocytes (%) (Auto) % (20.0-45.0) Monocytes (%) (Auto) % (1.0-10.0) Eosinophils (%) (Auto) % (0.0-3.0) Basophils (%) (Auto) % (0.0-2.0) Differential Total Cells Counted 100 Neutrophils % (Manual) 91 % (45-75) H Lymphocytes % (Manual) 4 % (20-45) L Monocytes % (Manual) 5 % (1-10) Eosinophils % (Manual) 0 % (0-3) Basophils % (Manual) 0 % (0-2) Band Neutrophils 0 % (0-8) Platelet Estimate Adequate Platelet Morphology Normal Prothrombin Time 10.5 SEC (9.30-11.50) Prothrombin Time INR 1.0 (0.9-1.1) PTT 23 SEC (23-33) Sodium Level 142 MMOL/L (136-145) Potassium Level 3.9 MMOL/L (3.5-5.1) Chloride Level 109 MMOL/L (98-107) H Carbon Dioxide Level 23 MMOL/L (21-32) Anion Gap 10 mmol/L (5-15) Blood Urea Nitrogen 22 mg/dL (7-18) H Creatinine 1.2 MG/DL (0.55-1.30) Estimate Glomerular Filtration Rate 50.5 mL/min (>60) Glucose Level 120 MG/DL (74-106) H Calcium Level 9.3 MG/DL (8.5-10.1) Total Bilirubin 0.2 MG/DL (0.2-1.0) Aspartate Amino Transferase (AST) 12 U/L (15-37) L Alanine Aminotransferase (ALT) 11 U/L (12-78) L Alkaline Phosphatase 158 U/L (46-116) H Troponin I 0.000 ng/mL (0.000-0.056) Pro-B-Type Natriuretic Peptide 1334 pg/mL (0-125) H Total Protein 7.1 G/DL (6.4-8.2) Albumin 3.8 G/DL (3.4-5.0) Globulin 3.3 g/dL Albumin/Globulin Ratio 1.2 (1.0-2.7) Urine Color Yellow Urine Appearance Slightly cloudy Urine pH 5 (4.5-8.0) Urine Specific [place] 1.020 (1.005-1.035) Urine Protein 2+ (NEGATIVE) H Urine Glucose (UA) Negative (NEGATIVE) Urine Ketones 1+ (NEGATIVE) H Urine Occult Blood 4+ (NEGATIVE) H Urine Nitrite Negative (NEGATIVE) Urine Bilirubin Negative (NEGATIVE) Urine Urobilinogen Normal MG/DL (0.0-1.0) Urine Leukocyte Esterase 1+ (NEGATIVE) H Urine RBC 2-4 /HPF (0 - 2) H Urine WBC 0-2 /HPF (0 - 2) Urine Squamous Epithelial Cells Moderate /LPF (NONE/OCC) H Urine Bacteria Moderate /HPF (NONE) H Urine Mucus Moderate /LPF (NONE/OCC) H Urine HCG, Qualitative Negative Last Vital Signs Date Time Temp Pulse Resp B/P (MAP) Pulse Ox O2 Delivery O2 Flow Rate FiO2 10/13/17 20:00 103 16 Room Air 10/13/17 20:00 97.9 177/108 98 Ansley Wills M.D. Oct 13, 2017 21:09
[2017-10-13 21:56] LABS: APPEARANCE,URINE SLIGHTLY CLOUDY; KETONES,URINE 1+ (NEGATIVE); LEUKOCYTE ESTERASE ,URINE 1+ (NEGATIVE); NITRITE,URINE NEGATIVE (NEGATIVE); PH,URINE 5 (4.5-8.0); PROTEIN,URINE 2+ (NEGATIVE); UROBILINOGEN,URINE NORMAL MG/DL (0.0-1.0)
[2017-10-13 22:00] VITALS: BP 165/100
[2017-10-13 22:03] LABS: BACTERIA,URINE MODERATE /HPF; MUCUS,URINE MODERATE /LPF (NONE/OCC); SQUAMOUS EPITHELIAL CELL,UR MODERATE /LPF (NONE/OCC); WBC,URINE 0-2 /HPF (0 - 2)
[2017-10-13] MEDS ORDERED: Vancomycin 1.5gm/D5W 250ml 250 ML IVPB ONE (22:15)
[2017-10-13] MEDS ORDERED: Cefepime HCl 2 GM in D5W 55 ML IVPB ONE (22:30)
[2017-10-13] MEDS ORDERED: Morphine Sulfate 4mg/ml Inj IVP PRN (22:30)
[2017-10-13] MEDS ORDERED: DiphenhydrAMINE 50mg/ml Inj IVP ONE (22:30)
[2017-10-13] MEDS ORDERED: Cefepime 2gm ONE (22:31)
[2017-10-13 23:30] VITALS: BP 166/95
--- NOTE | 2017-10-14 10:22 | Diagnostic Imaging Report ---
Indication: Dyspnea Comparison: 03/03/17 A single view chest radiograph was obtained. Findings: PICC line is in the position with the tip situated in the SVC. Heart size is borderline enlarged. Lungs are essentially clear with some prominence of the bronchovascular markings probably due to low lung lines. Impression: PICC line in good position
--- NOTE | 2017-10-15 18:39 | Cardiology Report ---
APPROVED REPORT EKG Measurement Heart [id number] Normal sinus rhythm Possible Left atrial enlargement Borderline ECG
== END 2017-10-13 23:30 | disposition left against medical advice (07) ==
LOC: EMR 21:13 → 2W 21:15 → UNDOADMIN 21:15 → EDBEDREQ 22:05 → EMR 23:30
DX: R07.9 Chest pain, unspecified (principal); Z86.711 Personal history of pulmonary embolism; G89.29 Other chronic pain; M32.9 Systemic lupus erythematosus, unspecified; Z79.01 Long term (current) use of anticoagulants; Z88.2 Allergy status to sulfonamides; Z88.8 Allergy status to other drugs, medicaments and biological substances; Z91.041 Radiographic dye allergy status
CPT/HCPCS: 36415; 71010; 80053; 81001; 81025; 83880; 84484; 85007; 85025; 85610; 85730; 87086; 93005; 96374; 96375; 99284; J1200; J2270

== ENCOUNTER 2018-01-01 21:09 | Inpatient (IN) | payer MEDICARE ==
[~2018-01-01] VITALS: Ht 160 cm; Wt 81.2 kg
[2018-01-01] MEDS ORDERED: HYDROmorphone 1mg/ml Carpuject IVP ONE ×2 (21:45→22:45)
[2018-01-01] MEDS ORDERED: DiphenhydrAMINE 50mg/ml Inj IVP ONE (21:45)
--- NOTE | 2018-01-01 21:48 | Emergency Room Report ---
History of Present Illness General Chief Complaint: Chest Pain Source: Patient Present Illness HPI Patient presents with 2 problems. One is that she has left-sided chest pain. Feels pleuritic pain is 8/10 at this time. Started acutely at 8 PM. She was sitting watching TV. It feels like when she's had a pulmonary embolus in the past. She sounds are also at this time. She denies any fever, cough, hemoptysis, calf pain, edema. In addition to chest pain she has left arm weakness. She's had TIAs in the past and this feels like that. She has good sensation and movement the left arm is weaker than the right at this time. This began at the same time. In the past she 's had TIAs which presented with visual changes - denies this now. + Headache. LNMP ended yesterday and was normal for the patient. H/O lupus. On Plaquanil. H/O Spine osteomyelitis. Chronic pain on opiates in past. Admitted December and February 2017. Dx: 1. Chest pain syndrome. 2. Systemic lupus erythematosus. 3. Hypercoagulable state. 4. History of pulmonary embolism. 5. Chronic anticoagulation. 6. Chronic osteomyelitis of spine. 7. Opiate dependency. 8. Anemia of chronic disease. 9. Hypokalemia. 10. Hypertension 11. Paroxysmal bronchospasm and sinus tachycardia. 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, 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 to [place], was visiting a friend in [place] Last Menstrual Period: Dec Reviewed Nursing Documentation: PMH: Agreed, PSxH: Agreed Nursing Documentation-PMH Hx Cardiac Problems: Yes - Hemolytic anemia, PE [id number] Hx Cancer: No Hx Gastrointestinal Problems: No Hx Neurological Problems: Yes - Lupus, Osteomyletis Review of Systems All Other Systems: negative except mentioned in HPI Physical Exam Vital Signs Date Time Temp Pulse Resp B/P (MAP) Pulse Ox O2 Delivery O2 Flow Rate FiO2 01/01/18 21:12 97.5 129 18 129/77 98 Room Air 97.5 Sp02 EP Interpretation: reviewed, normal General Appearance: well appearing, no apparent distress, GCS 15 Head: normocephalic Eyes: bilateral eye normal inspection, bilateral eye PERRL ENT: moist mucus membranes Neck: supple Respiratory: chest non-tender, lungs clear, normal breath sounds, other - R permacath Cardiovascular #1: tachycardia Cardiovascular #2: 2+ radial (R) Gastrointestinal: normal inspection, normal bowel sounds, non tender, no mass, non-distended Musculoskeletal: back normal, gait/station normal, normal range of motion Neurologic: alert, oriented x3, 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 Differential includes pulmonary embolus, acute myocardial infarction, acute coronary syndrome , chest wall pain, pleurisy, pneumonia, stroke, TIA amongst others. The patient needs emergent evaluation with EKG, and CT the head, chest x-ray and labs. She's allergic to contrast dye and it's a CTA is to be performed we will perform IV contrast allergy protocol. The patient has pain will be treated for this. She's on Xarelto and therefore risk of PE is less however still a consideration. The patient will need to be observed on a quality assurance monitor. EKG with ST, no injury. CXR with portacath. Labs unremarkable. CT head no abnormalities. Patient required retreatment with analgesia. Alleged weakness in L arm unchanged. Due to aspirin allergy, Plavix ordered. Admit telemetry, Dr. Wallis. Laboratory Tests Test 01/01/18 21:40 01/01/18 21:50 01/02/18 03:30 01/02/18 10:00 Urine Color Yellow Urine Appearance Clear Urine pH 5 (4.5-8.0) Urine Specific [place] 1.030 (1.005-1.035) Urine Protein 1+ (NEGATIVE) H Urine Glucose (UA) Negative (NEGATIVE) Urine Ketones Negative (NEGATIVE) Urine Occult Blood 1+ (NEGATIVE) H Urine Nitrite Negative (NEGATIVE) Urine Bilirubin Negative (NEGATIVE) Urine Urobilinogen Normal MG/DL (0.0-1.0) Urine Leukocyte Esterase 1+ (NEGATIVE) H Urine RBC 0-2 /HPF (0 - 2) Urine WBC 2-4 /HPF (0 - 2) Urine Squamous Epithelial Cells Few /LPF (NONE/OCC) Urine Bacteria Few /HPF (NONE) Urine HCG, Qualitative Negative Urine Opiates Screen Positive (NEGATIVE) H Urine Barbiturates Screen Negative (NEGATIVE) Phencyclidine (PCP) Screen Negative (NEGATIVE) Urine Amphetamines Screen Negative (NEGATIVE) Urine Benzodiazepines Screen Negative (NEGATIVE) Urine Cocaine Screen Negative (NEGATIVE) Urine Marijuana (THC) Screen Negative (NEGATIVE) White Blood Count 7.6 K/UL (4.8-10.8) Red Blood Count 3.80 M/UL (4.20-5.40) L Hemoglobin 10.8 G/DL (12.0-16.0) L Hematocrit 33.9 % (37.0-47.0) L Mean Corpuscular Volume 89 FL (80-99) Mean Corpuscular Hemoglobin 28.4 PG (27.0-31.0) Mean Corpuscular Hemoglobin Concent 31.9 G/DL (32.0-36.0) L Red Cell Distribution Width 17.3 % (11.6-14.8) H Platelet Count 466 K/UL (150-450) H Mean Platelet Volume 6.4 FL (6.5-10.1) L Neutrophils (%) (Auto) 58.1 % (45.0-75.0) Lymphocytes (%) (Auto) 23.9 % (20.0-45.0) Monocytes (%) (Auto) 11.8 % (1.0-10.0) H Eosinophils (%) (Auto) 4.9 % (0.0-3.0) H Basophils (%) (Auto) 1.3 % (0.0-2.0) Prothrombin Time 10.5 SEC (9.30-11.50) Prothrombin Time INR 1.0 (0.9-1.1) PTT 25 SEC (23-33) 29 SEC (23-33) Sodium Level 141 MMOL/L (136-145) Potassium Level 3.8 MMOL/L (3.5-5.1) Chloride Level 107 MMOL/L (98-107) Carbon Dioxide Level 28 MMOL/L (21-32) Anion Gap 6 mmol/L (5-15) Blood Urea Nitrogen 22 mg/dL (7-18) H Creatinine 1.2 MG/DL (0.55-1.30) Estimate Glomerular Filtration Rate 50.5 mL/min (>60) Glucose Level 90 MG/DL (74-106) Calcium Level 8.3 MG/DL (8.5-10.1) L Total Bilirubin 0.2 MG/DL (0.2-1.0) Aspartate Amino Transferase (AST) 16 U/L (15-37) Alanine Aminotransferase (ALT) 15 U/L (12-78) Alkaline Phosphatase 144 U/L (46-116) H Total Creatine Kinase 26 U/L (26-308) Troponin I 0.000 ng/mL (0.000-0.056) Pro-B-Type Natriuretic Peptide 43 pg/mL (0-125) Total Protein 6.4 G/DL (6.4-8.2) Albumin 3.5 G/DL (3.4-5.0) Globulin 2.9 g/dL Albumin/Globulin Ratio 1.2 (1.0-2.7) Random Vancomycin Level 4.7 ug/mL EKG Diagnostic Results Rate: tachycardiac ST Segments: no acute changes Rhythm Strip Diag. Results EP Interpretation: yes Rhythm: no PVC's, no ectopy, other Chest X-Ray Diagnostic Results Chest X-Ray Diagnostic Results : Chest X-Ray Ordered: Yes # of Views/Limited/Complete: 1 View Indication: Chest Pain EP Interpretation: Yes Interpretation: no consolidation, no effusion, no pneumothorax, other - portacath Impression: No acute disease Electronically Signed by: Marcello Patel MD CT/MRI/US Diagnostic Results CT/MRI/US Diagnostic Results : Imaging Test Ordered: head Impression No CVA, bleed Last Vital Signs Date Time Temp Pulse Resp B/P (MAP) Pulse Ox O2 Delivery O2 Flow Rate FiO2 18 21:12 97.5 129 18 129/77 98 Room Air 97.5 Status: improved Disposition: ADMITTED INPATIENT Condition: Serious Marcello Patel M.D. Jan 01, 2018 21:48
[2018-01-01 21:50] VITALS: BP 107/82
[2018-01-01] MEDS: Sodium Chloride 500ML 550 ML IV SCH (22:22)
[2018-01-01 22:30] LABS: APPEARANCE,URINE CLEAR; BILIRUBIN, URINE NEGATIVE (NEGATIVE); GLUCOSE, URINE (UA) NEGATIVE (NEGATIVE); KETONES,URINE NEGATIVE (NEGATIVE); LEUKOCYTE ESTERASE ,URINE 1+ (NEGATIVE); NITRITE,URINE NEGATIVE (NEGATIVE); PH,URINE 5 (4.5-8.0); PROTEIN,URINE 1+ (NEGATIVE); UROBILINOGEN,URINE NORMAL MG/DL (0.0-1.0)
[2018-01-01 22:35] VITALS: BP 149/101
[2018-01-01 22:36] LABS: COLOR,URINE YELLOW
[2018-01-01 22:37] LABS: ANION GAP 6 mmol/L (5-15); BLOOD UREA NITROGEN 22 mg/dL (7-18); CALCIUM 8.3 MG/DL (8.5-10.1); CARBON DIOXIDE 28 MMOL/L (21-32); CHLORIDE 107 MMOL/L (98-107); CREATININE 1.2 MG/DL (0.55-1.30); POTASSIUM 3.8 MMOL/L (3.5-5.1); SODIUM 141 MMOL/L (136-145)
[2018-01-01 22:38] LABS: BASOPHILS % (AUTO) 1.3 % (0.0-2.0); EOSINOPHILS % (AUTO) 4.9 % (0.0-3.0); HEMATOCRIT 33.9 % (37.0-47.0); HEMOGLOBIN 10.8 G/DL (12.0-16.0); LYMPHOCYTES % (AUTO) 23.9 % (20.0-45.0); MEAN CORPUSCULAR VOLUME 89 FL (80-99); MONOCYTES % (AUTO) 11.8 % (1.0-10.0); NEUTROPHILS % (AUTO) 58.1 % (45.0-75.0); PLATELET COUNT 466 K/UL (150-450); RED CELL DISTRIBUTION WIDTH 17.3 % (11.6-14.8); WHITE BLOOD COUNT 7.6 K/UL (4.8-10.8)
[2018-01-01 22:48] LABS: ALANINE AMINOTRANSFERASE 15 U/L (12-78); ALBUMIN 3.5 G/DL (3.4-5.0); ALBUMIN/GLOBULIN RATIO 1.2 (1.0-2.7); ALKALINE PHOSPHATASE 144 U/L (46-116); ASPARTATE AMINO TRANSFERASE 16 U/L (15-37); BILIRUBIN,TOTAL 0.2 MG/DL (0.2-1.0); CREATINE KINASE 26 U/L (26-308)
[2018-01-01 23:08] VITALS: BP 149/86
[2018-01-01] MEDS ORDERED: VANCOMYCIN1 GM/2502 IVPB (23:25)
[2018-01-01] MEDS ORDERED: SOMA350 MG PO (23:25)
[2018-01-01] MEDS ORDERED: DIPHENHYDR50 MG/1 M1 IJ (23:25)
[2018-01-01] MEDS ORDERED: ZOFRAN4 M3 ORAL (23:25)
[2018-01-01] MEDS ORDERED: DILAUDID 22 MG/1 M1 IJ (23:25)
[2018-01-01] MEDS ORDERED: DOCUSATE SODIU100 MG ORAL (23:25)
[2018-01-01 23:30] VITALS: BP_SYST 134; BP_SYST 135; BP_DIAS 85; BP_DIAS 92
[2018-01-02] VITALS (8 sets, daily range): BP systolic 107–136; BP diastolic 56–86
[2018-01-02] MEDS ORDERED: Zolpidem 5mg tab ORAL PRN (01:30)
[2018-01-02] MEDS: Sodium Chloride 500ML 550 ML IV SCH ×3 (01:38→01:42)
[2018-01-02] MEDS: DiphenhydrAMINE 50mg/ml Inj IVP PRN ×5 (02:38→22:55)
[2018-01-02] MEDS ORDERED: Vancomycin 1gm inj IVPB ONE (04:41)
[2018-01-02] MEDS: Vancomycin 1gm/D5W 275ml IVPB SCH ×4 (04:47→15:57)
[2018-01-02] MEDS ORDERED: LORazepam Inj 2mg/ml 1ml IV PRN (08:45)
[2018-01-02] MEDS ORDERED: Heparin 5000 units/ml inj IV ONE (08:45)
[2018-01-02] MEDS ORDERED: Xarelto 10mg tab ORAL SCH (09:00)
[2018-01-02] MEDS: Docusate 100mg cap ORAL SCH ×2 (09:00→17:59)
[2018-01-02] MEDS: Metoprolol Succinate XL 25mg tab ORAL SCH (09:00)
[2018-01-02] MEDS ORDERED: Heparin 25,000u/D5W 500ml 500 ML IV SCH ×2 (09:15→12:45)
--- NOTE | 2018-01-02 09:46 | Diagnostic Imaging Report ---
Indication: Weakness Technique: Continuous helical CT scanning of the head was performed utilizing automated exposure control without intravenous contrast material. Axial and coronal reconstructions were obtained. Comparison: None CT dose: Total DLP 1333.37 mGycm; CTDI vol 70.38 mGy Findings: There is no acute intracranial hemorrhage, mass effect or cortical edema. The ventricles, cisterns and sulci are normal for age. Visualized mastoid air cells and paranasal sinuses are unremarkable. No focal lesions of the bony calvarium or soft tissues of the scalp are seen. IMPRESSION: No evidence of acute intracranial hemorrhage, mass effect or cortical edema. MRI may be obtained for more sensitive evaluation as clinically indicated. This corresponds with the statrad preliminary report. The CT scanner at [facility] is accredited by the [employer] and the scans are performed using protocols designed to limit radiation exposure to as low as reasonably achievable to attain images of sufficient resolution adequate for diagnostic evaluation.
--- NOTE | 2018-01-02 10:14 | Diagnostic Imaging Report ---
Indication: Chest pain Technique: XRAY Chest 1v Comparison: 10-13-17 Findings: Heart size and mediastinal contours are stable. A right-sided likely tunneled PICC line has its catheter tip in the region of the lower IJ vein/SVC confluence. Lung volumes are low. There is no focal airspace consolidation, pleural effusion or pneumothorax. No acute osseous abnormality seen. Impression: Limited exam with low lung volumes. No radiographic evidence of acute cardiopulmonary disease. Right-sided likely tunneled PICC line in place with catheter tip in the region of the lower IJ vein/SVC confluence.
--- NOTE | 2018-01-02 13:32 | Cardiology Report ---
APPROVED REPORT EXAM: Two-dimensional and M-mode echocardiogram with Doppler and color Doppler. INDICATION CVA/TIA M-Mode DIMENSIONS IVSd1.3 (0.7-1.1cm)Left Atrium (MM)3.0 (1.6-4.0cm) LVDd4.7 (3.5-5.6cm)Aortic Root3.1 (2.0-3.7cm) PWd1.4 (0.7-1.1cm)Aortic Cusp Exc.1.6 (1.5-2.0cm) LVDs3.3 (2.5-4.0cm) PWs1.6 cm Normal left ventricular chamber size, systolic function and wall motion. Left ventricular ejection fraction estimated to be 60 %. Mild left ventricular hypertrophy. No evidence of pericardial effusion. All other cardiac chamber sizes are within normal limits. Mild focal aortic valve sclerosis with adequate cusp excursion. Mildly thickened mitral valve leaflets with normal excursion. Mild mitral annulus and aortic root calcification. Normal pulmonic valve structure. Normal tricuspid valve structure. IVC at normal size with physiologic collapse. A color flow and spectral Doppler study was performed and revealed: Mild to moderate mitral regurgitation. Mitral inflow indicate normal left ventricular diastolic function. Trace to mild tricuspid regurgitation. Tricuspid systolic velocities suggests peak right ventricular systolic pressure of 34 mmHg. Trace pulmonic regurgitation present.
--- NOTE | 2018-01-02 15:05 | Cardiology Report ---
APPROVED REPORT EKG Measurement Heart [id number] [place] [id number] Sinus tachycardia Nonspecific T wave abnormality Abnormal ECG
--- NOTE | 2018-01-02 16:28 | Diagnostic Imaging Report ---
Indication: Left-sided weakness Technique: MRI the brain performed utilizing T1 sagittal, T2 axial, T1 FLAIR axial, T2 FLAIR axial and sagittal, T2*GRE and diffusion axial images without gadolinium. Comparison: Comparison made to concurrent CT of the head Findings: No diffusion abnormalities are seen on diffusion weighted imaging to suggest acute infarct. The sulci, ventricles and cisterns are normal for age. Few periventricular and supratentorial foci of white matter T2 hyperintensity are seen without mass effect. The largest of these is located on the left and is perpendicular to the lateral ventricle (series 5 image #11; series 9 image #6 ). There is no shift of midline structures. No significant extra-axial collections of fluid or blood are demonstrated. The sella and parasellar regions are unremarkable. Expected signal flow voids are seen of the vessels of the skull base. Visualized mastoid air cells and paranasal sinuses are unremarkable. No focal bony calvarium or soft tissue lesions are seen. IMPRESSION: No evidence of acute stroke, intracranial hemorrhage, mass effect or midline shift. Few scattered foci of subcortical and periventricular FLAIR/T2 signal hyperintensity without mass effect. Findings are nonspecific and most commonly reflective of chronic microvascular ischemic changes. Additional etiologies including demyelination not excluded. Clinical correlation and follow-up exam recommended.
[2018-01-02] MEDS: Heparin 25,000u/D5W 500ml 500 ML IV SCH (20:06)
--- NOTE | 2018-01-02 20:45 | History and Physical Report ---
DATE OF ADMISSION: 01/01/2018 CHIEF COMPLAINT: Stroke, possible PE. HISTORY OF PRESENT ILLNESS: The patient is a 37-year-old female. She has history of lupus, lupus anticoagulant, hypercoagulable state. She has prior history of stroke and pulmonary embolism as well as DVT. She has history of spinal osteomyelitis and is currently on outpatient antibiotic therapy. She apparently is relocating from [place]. According to the patient, she has had nine strokes in the past. She has been on Coumadin as well as all the other novel oral anticoagulants. She has been compliant with medications. On the evening prior to admission here, she developed chest pain and some weakness, presented to the emergency room. On evaluation there, her CAT scan was negative. Initial laboratory tests were also unremarkable, but the patient had persistent left-sided weakness and is now admitted for further evaluation and care. PAST MEDICAL HISTORY: As above. Hemolytic anemia. PAST SURGICAL HISTORY: Includes cholecystectomy, appendectomy, IVC filter, cataract surgery, and tonsillectomy. CURRENT MEDICATIONS: Reconciled and reviewed. ALLERGIES: Include aspirin, chlorhexidine, CT contrasts, NSAIDs, ketorolac, plastic, and sulfa. FAMILY HISTORY: Significant for coronary artery disease and stroke. SOCIAL HISTORY: Negative for tobacco, ethanol, or drugs. REVIEW OF SYSTEMS: GENERAL: No fever or chills. HEENT: No headaches or visual changes. CARDIOPULMONARY: Positive chest pain. No shortness of breath. GASTROINTESTINAL: No nausea or vomiting. GENITOURINARY: No urgency or frequency. MUSCULOSKELETAL: No joint pain or swelling. NEUROLOGIC: No evidence of seizures. Positive history of stroke. PHYSICAL EXAMINATION: VITAL SIGNS: Temperature 98 degrees, pulse 91, respirations 16, and blood pressure 131/75. GENERAL: The patient is well developed, well nourished, in no apparent distress. She is awake, alert, and oriented x4. Her speech is fluent. NECK: Supple. There are no carotid bruits. HEART: Regular rate and rhythm. LUNGS: Clear. ABDOMEN: Soft, nontender, nondistended. EXTREMITIES: Without clubbing or cyanosis. NEUROLOGIC: Motor strength is 2/5 on the left side and 5/5 on the right side. Sensation is intact bilaterally. LABORATORY AND DIAGNOSTIC DATA: Sodium 141, potassium 3.8. Troponin was negative. White count 7, hemoglobin 10, hematocrit 33, and platelets of 466,000. Toxicology screen is negative except for opiates. EKG showed sinus rhythm without any acute ST-T wave changes. ASSESSMENT: This is a pleasant female with history of hypercoagulable state, lupus, pulmonary embolism, deep venous thrombosis, stroke, transient ischemic attack , spinal osteomyelitis, hemolytic anemia, admitted with complaints of left-sided weakness consistent with a new stroke. She also may have pulmonary embolism. She is currently on treatment with intravenous vancomycin for osteomyelitis of the spine. PLAN: We will convert to heparin drip. MRI of the brain. Hematology/Oncology and Neurology consultation will be obtained. We will order V/Q scan of the chest. Continue pain medications. Further plan of care will be determined after review of pending tests and discussion with consulting physicians. Chas Brady M.D. DR: NBA JOB#: [id number] CC:
[2018-01-03] VITALS: BP 121/72
[2018-01-03] MEDS: DiphenhydrAMINE 50mg/ml Inj IVP PRN ×5 (03:02→21:08)
[2018-01-03 04:00] VITALS: BP 110/71
[2018-01-03] MEDS: Vancomycin 1gm/D5W 275ml IVPB SCH ×4 (04:05→16:15)
[2018-01-03 08:00] VITALS: BP 123/86
[2018-01-03] MEDS: Docusate 100mg cap ORAL SCH ×2 (08:36→18:00)
[2018-01-03] MEDS: Metoprolol Succinate XL 25mg tab ORAL SCH (08:38)
--- NOTE | 2018-01-03 08:47 | General Progress Note ---
Assessment/Plan Problem List: (1) Hypercoagulable state ICD Codes: D68.59 - Other primary thrombophilia SNOMED: 25090002 (2) Lupus (systemic lupus erythematosus) ICD Codes: M32.9 - Systemic lupus erythematosus, unspecified SNOMED: 17643411 (3) Lupus anticoagulant disorder ICD Codes: D68.62 - Lupus anticoagulant syndrome SNOMED: 78633400 (4) Lupus anticoagulant syndrome ICD Codes: D68.62 - Lupus anticoagulant syndrome SNOMED: 09162574 (5) Chest pain ICD Codes: R07.9 - Chest pain, unspecified SNOMED: 67884697 Qualifiers: Qualified Codes: R07.1 - Chest pain on breathing (6) Left arm weakness ICD Codes: R29.898 - Other symptoms and signs involving the musculoskeletal system SNOMED: 856989986 Status: stable Assessment/Plan neuro follow up heme onc eval heparin drip pain rx Subjective ROS Limited/Unobtainable: No Constitutional: Reports: malaise, weakness HEENT: Reports: no symptoms Cardiovascular: Reports: no symptoms Respiratory: Reports: no symptoms Gastrointestinal/Abdominal: Reports: no symptoms Genitourinary: Reports: no symptoms Neurologic/Psychiatric: Reports: pre-existing deficit Endocrine: Reports: no symptoms Hematologic/Lymphatic: Reports: no symptoms Allergies: Coded Allergies: ASPIRIN (Verified Allergy, Unknown, 01/01/18) CHLORHEXIDINE (Unverified Allergy, Unknown, 12/18/16) KETOROLAC (Verified Allergy, Unknown, 09/25/16) NSAIDS (NON-STEROIDAL ANTI-INFLAMMA (Verified Allergy, Unknown, 09/25/16) SULFA (SULFONAMIDE ANTIBIOTICS) (Verified Allergy, Unknown, 09/25/16) Uncoded Allergies: CT CONTRAST (Allergy, Unknown, 09/25/16) CT Contrast PLASTIC (Allergy, Unknown, 09/25/16) Plastic tape All Systems: reviewed and negative except above Subjective still weakn left UE. MRI negative for acute stroke. Objective Last 24 Hour Vital Signs Date Time Temp Pulse Resp B/P (MAP) Pulse Ox O2 Delivery O2 Flow Rate FiO2 01/03/18 08:38 84 123/86 01/03/18 04:00 98.1 92 20 110/71 96 Room Air 98.1 01/03/18 04:00 91 01/03/18 00:00 88 01/03/18 00:00 98.2 95 20 121/72 98 Room Air 98.2 01/02/18 20:00 91 01/02/18 20:00 97.9 85 18 112/69 96 Room Air 97.9 01/02/18 18:51 97.9 01/02/18 18:51 97.9 01/02/18 18:41 97.9 01/02/18 17:52 97.9 01/02/18 16:00 97.9 92 18 129/77 100 Room Air 97.9 01/02/18 16:00 135 01/02/18 14:47 97.2 01/02/18 12:40 97.2 01/02/18 12:00 108 01/02/18 12:00 97.2 99 18 107/72 98 Room Air 97.2 01/02/18 10:43 98.1 01/02/18 09:00 80 125/86 Intake and Output 01/02/18 01/03/18 19:00 07:00 Intake Total 1170.916 ml 762.801 ml Balance 1170.916 ml 762.801 ml Intake Oral 750 ml 240 ml IV Total 420.916 ml 522.801 ml # Voids 2 2 Laboratory Tests 01/02/18 10:00: Activated Partial Thromboplast Time 29 01/02/18 18:05: Activated Partial Thromboplast Time > 150*H 01/03/18 02:40: Activated Partial Thromboplast Time 89H Height (Feet): 5 Height (Inches): 3.00 Weight (Pounds): 179 General Appearance: WD/WN, alert Neck: supple Cardiovascular: regular rhythm Respiratory/Chest: lungs clear Abdomen: normal bowel sounds, non tender, soft, no organomegaly Edema: no edema noted Arm (L), no edema noted Arm (R), no edema noted Leg (L), no edema noted Leg (R), no edema noted Pedal (L), no edema noted Pedal (R), no edema noted Generalized Neurologic: motor weakness ISABEL RODRIGUEZ Jan 03, 2018 08:47
[2018-01-03] MEDS: Heparin 25,000u/D5W 500ml 500 ML IV SCH (09:07)
--- NOTE | 2018-01-03 09:09 | Consultation ---
Consult Note Consult Note NEUROLOGY CONSULTATION: Full note dictated #[id number] 37 y/o, RH, CF with PH of SLE, lupus anticoagulant, multiple strokes with right and left body weakness and altered sensations, multiple episodes of PE and spinal osteomyelitis at multiple levels in the C and T spine. She was hospitalized on 01/01/18 for developing chest pain and left sided weakness. At this time the left side continues to be weak. The entire left side feels weak. In addition she has a subjective alteration in sensations over her entire body. ON EXAM: G 5/5 on right G 3/5 on left with significant give way. Reflexes 1+ at the B/T/BR/A, 2+ at K with flexor plantars. MRI of brain with old bilateral DWM infarcts and no acute path. IMPRESSION: Significant left paresis sparing the face with give way. REC: MRI of C spine PT/OT Continue anticoagulation Observe. Ivan Brooks M.D., M.S.P.Gila. IVAN BROOKS Jan 03, 2018 09:09
[2018-01-03] MEDS ORDERED: LORazepam Inj 2mg/ml 1ml IV ONE (10:00)
[2018-01-03 12:00] VITALS: BP 123/89
--- NOTE | 2018-01-03 12:25 | Diagnostic Imaging Report ---
Indication: Left arm and left-sided weakness, possible demyelination demonstrated on prior brain CT, prior history of spinal osteomyelitis from C6 through T3 Technique: Sagittal T1 FLAIR PROPELLER, sagittal T2 PROPELLOR, sagittal STIR, axial T2 PROPELLER, axial 3D COSMIC ASPIR, pre and postcontrast axial and sagittal T 1 fast spin echo fat-saturated images were obtained through the cervical spine Comparison: None. Reference made to brain MRI dated 01/02/2018 Findings: Intrinsic cord signal is normal. No foci of abnormal signal intensity demonstrated. No unusual contrast enhancement is demonstrated. The bony alignment is normal. The vertebral body heights and disc spaces are preserved. There is slight irregularity of the C7-T1 disc and adjacent endplates, but no significant disc fluid signal or disc enhancement is demonstrated. No significant disc bulge or protrusion, spinal stenosis, or neural foraminal stenosis demonstrated. Impression: Essentially unremarkable exam. No cervical spinal cord abnormality to suggest demyelinating disease or other significant pathology demonstrated Slightly irregular indistinct inferior C7 and C6. T1 endplates, may reflect sequela of stated clinical history of prior cervicothoracic osteomyelitis or could just be on the basis of mild degenerative changes. No evidence of active inflammation No evidence of neural impingement
[2018-01-03] MEDS ORDERED: Xarelto 10mg tab ORAL SCH (13:00)
--- NOTE | 2018-01-03 16:47 | Consultation ---
DATE OF CONSULTATION: 01/03/2018 NEUROLOGY CONSULTATION CONSULTING PHYSICIAN: Jeff Brooks M.D. REQUESTING PHYSICIAN: Chas Brady M.D. HISTORY: Ms. Kirsty Sterling is a 37-year-old, right-handed, lady, who does have a past history of systemic lupus erythematosus, lupus anticoagulant disease, multiple strokes with left and right body weakness and altered sensations, multiple episodes of pulmonary embolism, and spinal osteomyelitis at multiple cervical and thoracic levels for which she is on antibiotics. She was functioning relatively well until 01/01/2018 when she developed chest pain and left-sided weakness. She came to the [facility] emergency room. Since she has been here, she has continued to have the left-sided weakness. She also complains of a subjective alteration in sensations over her entire body and says that the whole body feels numb. The sensation includes the face, upper and lower extremities, and the torso. She denies any problems with controlling her bowel or bladder. She has noticed however that the walking has become increasingly difficult. PAST MEDICAL HISTORY: Significant for systemic lupus erythematosus, lupus anticoagulant disease, multiple strokes, multiple episodes of pulmonary embolism, and spinal osteomyelitis involving multiple levels in the cervical and thoracic spine. FAMILY HISTORY: Nothing significant. PERSONAL HISTORY: Home: She lives with a friend. 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 Habits: She denies the use of alcohol, tobacco, or illicit drugs. PRESENT MEDICATIONS: Include heparin for anticoagulation, DSS, Soma, Toprol, Plaquenil, vancomycin, Benadryl, Ambien, Zofran, and Dilaudid. PHYSICAL EXAMINATION: GENERAL: She is a well-developed, well-nourished, slightly obese, lady, lying in bed, in no acute distress. VITAL SIGNS: Pulse 84 per minute, blood pressure 123/86 mmHg, respirations 20 per minute, and temperature 98.1 degrees Fahrenheit. HEAD: Normocephalic and atraumatic. EENT: Examination benign. NECK: No neck rigidity was observed. NEUROLOGICAL EXAMINATION: MENTAL STATUS EXAMINATION: She was awake and alert. She was oriented to self, [facility], and December 2017, but not the exact date. She was able to recall 3/3 words immediately, and after 1 & 3 minutes. She was able to remember presidents [employer] through [employer] with minimal hints. Her mathematical skills were good. Her visuospatial function was preserved. SPEECH: She had no dysarthria. LANGUAGE: She had no aphasia. CRANIAL NERVE EXAMINATION: II: The visual so were intact on confrontation testing. III, IV & : The external ocular movements were full and the pupils 3 mm in diameter, equal, round, regular, and reactive to light. V: She had normal facial sensations and the temporales, masseters, and pterygoids functioned normally. VII: She had normal facial expressions and no facial asymmetry. VIII: She was able to hear well bilaterally and had no nystagmus. IX: The palate moved symmetrically on phonation. X: She had no hoarseness of voice. XI: The sternocleidomastoids and trapezii functioned normally. XII: The tongue was in the midline without any fasciculations or atrophy. MOTOR SYSTEM: The tone was normal in all four extremities. Examination of muscle mass revealed no focal wasting. Examination of power revealed grade 5/5 power on the right side. On the left side, she has grade 3/5 power, but there was a significant amount of give-way weakness making accurate assessment of power quite difficult. SENSORY EXAMINATION: She had intact sensations to pinprick, light touch, and graphesthesia. COORDINATION: She performed well on [id number] testing bilaterally. She performed well on [id number] testing on the right side, but was unable to perform on the left side. REFLEXES: 1+ and bilaterally symmetrical at the biceps, triceps, brachioradialis, and ankles and 2+ at both knees. The plantar responses were flexor bilaterally. STANCE: She stood up with support on the right side. GAIT: She walked with support on the right side dragging her left leg. DIAGNOSTIC IMPRESSION: 1. Ms. Kirsty Sterling is a 37-year-old, right-handed, lady, who does have a past history of systemic lupus erythematosus, lupus anticoagulant disease, multiple strokes, multiple episodes of pulmonary embolism, and spinal osteomyelitis at the cervical and thoracic levels, who was hospitalized on 01/01/2018 for developing chest pain and left-sided weakness more than her baseline. The weakness continues. 2. On neurological examination, at this time, she does have mild disorientation to the exact date, mild problems with memory, weakness with significant give-way on the left side, and diminished deep tendon reflexes except for normal knee jerks and a left paretic gait. 3. An MRI scan of the brain reveals old bilateral deep white matter disease, most probably of an ischemic nature, but no acute pathology. 4. The patient's history, neurological examination, and imaging studies are most compatible with a significant left hemiparesis sparing the face with significant give-way weakness, which is still unexplained. The old deep white matter lesions are most probably old infarcts. RECOMMENDATIONS: 1. Agree with management thus far. 2. An MRI scan of the cervical spine will be ordered to evaluate the patient for her significant left-sided weakness and altered sensations involving the entire body. 3. Anticoagulation should be continued to prevent further strokes. 4. Physical and occupational therapy should be continued to mobilize the patient. 5. Treatment of infectious process as is being done right now. 6. The patient will be observed and depending on the results of the MRI scan of the cervical spine, further recommendations will be given. Thank you for entrusting me with the care of Ms. Sterling. I shall follow her with you. Jeff Brooks M.D., M.S.P.H. DR: MAYA JOB#: [id number] MTDD
[2018-01-03 20:00] VITALS: BP 124/65
[2018-01-04] VITALS: BP 107/79
[2018-01-04] MEDS: DiphenhydrAMINE 50mg/ml Inj IVP PRN ×6 (01:11→21:43)
[2018-01-04 04:00] VITALS: BP 111/68
[2018-01-04] MEDS: Vancomycin 1gm/D5W 275ml IVPB SCH ×2 (05:21)
[2018-01-04 08:00] VITALS: BP 128/90
--- NOTE | 2018-01-04 08:56 | General Progress Note ---
Assessment/Plan Problem List: (1) Hypercoagulable state ICD Codes: D68.59 - Other primary thrombophilia SNOMED: 23937265 (2) Lupus (systemic lupus erythematosus) ICD Codes: M32.9 - Systemic lupus erythematosus, unspecified SNOMED: 10931226 (3) Lupus anticoagulant disorder ICD Codes: D68.62 - Lupus anticoagulant syndrome SNOMED: 05678640 (4) Lupus anticoagulant syndrome ICD Codes: D68.62 - Lupus anticoagulant syndrome SNOMED: 17702992 (5) Chest pain ICD Codes: R07.9 - Chest pain, unspecified SNOMED: 71567062 Qualifiers: Qualified Codes: R07.1 - Chest pain on breathing (6) Left arm weakness ICD Codes: R29.898 - Other symptoms and signs involving the musculoskeletal system SNOMED: 084182061 Status: stable, progressing Assessment/Plan neuro follow up heme onc eval heparin drip converted to xarelto pain rx spine eval Subjective ROS Limited/Unobtainable: No Constitutional: Reports: malaise, weakness HEENT: Reports: no symptoms Cardiovascular: Reports: no symptoms Respiratory: Reports: no symptoms Gastrointestinal/Abdominal: Reports: no symptoms Genitourinary: Reports: no symptoms Neurologic/Psychiatric: Reports: pre-existing deficit Endocrine: Reports: no symptoms Hematologic/Lymphatic: Reports: no symptoms Allergies: Coded Allergies: ASPIRIN (Verified Allergy, Unknown, 01/01/18) CHLORHEXIDINE (Unverified Allergy, Unknown, 12/18/16) KETOROLAC (Verified Allergy, Unknown, 09/25/16) NSAIDS (NON-STEROIDAL ANTI-INFLAMMA (Verified Allergy, Unknown, 09/25/16) SULFA (SULFONAMIDE ANTIBIOTICS) (Verified Allergy, Unknown, 09/25/16) Uncoded Allergies: CT CONTRAST (Allergy, Unknown, 09/25/16) CT Contrast PLASTIC (Allergy, Unknown, 09/25/16) Plastic tape All Systems: reviewed and negative except above Subjective still weakn left UE. MRI negative for acute stroke. CT noted. MRI cervical spine. no osteo Objective Last 24 Hour Vital Signs Date Time Temp Pulse Resp B/P (MAP) Pulse Ox O2 Delivery O2 Flow Rate FiO2 01/04/18 04:00 77 01/04/18 04:00 97.0 81 20 111/68 96 Room Air 97.0 01/04/18 00:00 84 2/23/18 00:00 98.2 84 20 107/79 95 Room Air 98.2 01/03/18 21:00 86 01/03/18 20:00 97.0 79 20 124/65 95 97.0 01/03/18 20:00 Room Air 01/03/18 16:00 88 01/03/18 12:00 89 01/03/18 12:00 97.6 88 20 123/89 97 Room Air 97.6 Intake and Output 01/03/18 01/04/18 19:00 07:00 Intake Total 600 ml 275 ml Balance 600 ml 275 ml Intake Oral 600 ml IV Total 275 ml # Voids 2 Laboratory Tests 01/03/18 15:00: Hemoglobin A1c 6.1H, Total Protein (PEP) [Pending], Albumin (PEP) [Pending], Globulin (PEP) [Pending], Albumin/Globulin Ratio [Pending], [id number] [ Pending], Sucij-1-[id number] [Pending], Beta Globulins [Pending], Beta Gamma Globulin [Pending], PEP Abnormal Protein Bands [Pending], Protein Electrophoresis Interpret [Pending], Vitamin B12 Level 238, Vitamin D 25- Hydroxy [Pending], 25-Hydroxy Vitamin D2 [Pending], 25-Hydroxy Vitamin D3 [ Pending], Folate 5.2L, Thyroid Stimulating Hormone (TSH) 3.116, Vancomycin Level Trough 18.4H, Rapid Plasma Reagin Non reactive 01/04/18 04:47: Activated Partial Thromboplast Time 31 Height (Feet): 5 Height (Inches): 3.00 Weight (Pounds): 179 Objective General Appearance: WD/WN, alert Neck: supple Cardiovascular: regular rhythm Respiratory/Chest: lungs clear Abdomen: normal bowel sounds, non tender, soft, no organomegaly Edema: no edema noted Arm (L), no edema noted Arm (R), no edema noted Leg (L), no edema noted Leg (R), no edema noted Pedal (L), no edema noted Pedal (R), no edema noted Generalized Neurologic: motor weakness ISABEL RODRIGUEZ Jan 04, 2018 08:56
[2018-01-04] MEDS: Docusate 100mg cap ORAL SCH ×2 (09:41→18:25)
[2018-01-04] MEDS: Metoprolol Succinate XL 25mg tab ORAL SCH (09:43)
--- NOTE | 2018-01-04 10:35 | Neurology Progress Note ---
Interim History Interim History Interim History Ms. Sterling feels a little better. The weakness is about the same. The altered sensations over the body are also the same. She has noticed no new neurologic symptoms. Review of Systems Neuro Review of Systems Benign. Objective Physical Exam Last Vital Signs Date Time Temp Pulse Resp B/P (MAP) Pulse Ox O2 Delivery O2 Flow Rate FiO2 01/04/18 09:43 81 120/90 01/04/18 04:00 97.0 20 96 Room Air 97.0 Laboratory Tests Test 01/03/18 15:00 01/04/18 04:47 Hemoglobin A1c 6.1 % (4.3-6.0) H Total Protein (PEP) Pending Albumin (PEP) Pending Globulin (PEP) Pending Albumin/Globulin Ratio Pending Nucmh-6-Zhtiwxjvc Pending Abtur-8-Bwvmpkgae Pending Beta Globulins Pending Beta Gamma Globulin Pending PEP Abnormal Protein Bands Pending Protein Electrophoresis Interpret Pending Vitamin B12 Level 238 PG/ML ([id number]) Vitamin D 25-Hydroxy Pending 25-Hydroxy Vitamin D2 Pending 25-Hydroxy Vitamin D3 Pending Folate 5.2 NG/ML (8.6-58.9) L Thyroid Stimulating Hormone (TSH) 3.116 uiU/mL (0.358-3.740) Vancomycin Level Trough 18.4 ug/mL (5.0-12.0) H Rapid Plasma Reagin Non reactive (Non Reactive) Activated Partial Thromboplast Time 31 SEC (23-33) Neurologic Exam Objective PHYSICAL EXAMINATION: GENERAL: She is a well-developed, well-nourished, slightly obese, lady, lying in bed, in no acute distress. HEAD: Normocephalic and atraumatic. EENT: Examination benign. NECK: No neck rigidity was observed. NEUROLOGICAL EXAMINATION: MENTAL STATUS EXAMINATION: She was awake and alert. She was oriented to person, place and time. She was able to recall 3/3 words immediately, and after 1 & 3 minutes. She was able to remember presidents Trump through [employer]. with minimal hints. Her mathematical skills were good. Her visuospatial function was preserved. SPEECH: She had no dysarthria. LANGUAGE: She had no aphasia. CRANIAL NERVE EXAMINATION: II: The visual so were intact on confrontation testing. III, IV & : The external ocular movements were full and the pupils 3 mm in diameter, equal, round, regular, and reactive to light. V: She had normal facial sensations and the temporales, masseters, and pterygoids functioned normally. VII: She had normal facial expressions and no facial asymmetry. VIII: She was able to hear well bilaterally and had no nystagmus. IX: The palate moved symmetrically on phonation. X: She had no hoarseness of voice. XI: The sternocleidomastoids and trapezii functioned normally. XII: The tongue was in the midline without any fasciculations or atrophy. MOTOR SYSTEM: The tone was normal in all four extremities. Examination of muscle mass revealed no focal wasting. Examination of power revealed grade 5/5 power on the right side. On the left side, she has grade 3/5 power, but there was a significant amount of give-way weakness making accurate assessment of power impossible. SENSORY EXAMINATION: She had intact sensations to pinprick, light touch, and graphesthesia. COORDINATION: She performed well on neyghn-no-skvw testing bilaterally. She performed well on ijzu-sj-gjmf testing on the right side, but was unable to perform on the left side. REFLEXES: 1+ and bilaterally symmetrical at the biceps, triceps, brachioradialis, and ankles and 2+ at both knees. The plantar responses were flexor bilaterally. STANCE: She stood up with support on the right side. GAIT: She walked with support on the right side dragging her left leg. Impression/Recommendations Diagnostic Impression 1. Ms. 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 2. She feels a little better. The weakness is about the same. The altered sensations over the body are also the same. She has noticed no new neurologic symptoms. 3. On neurological examination, at this time, she does have mild mild problems with memory, weakness with significant give-way on the left side, and diminished deep tendon reflexes except for normal knee jerks and a left paretic gait. 4. An MRI scan of the brain reveals old bilateral deep white matter disease, most probably of an ischemic nature, but no acute pathology. 5. The MRI of the Cervical spine done on 01/03/18 revealed: " An essentially unremarkable exam. No cervical spinal cord abnormality to suggest demyelinating disease or other significant pathology demonstrated. Slightly irregular indistinct inferior C7 and C6. T1 endplates, may reflect sequela of stated clinical history of prior cervicothoracic osteomyelitis or could just be on the basis of mild degenerative changes. No evidence of active inflammation. No evidence of neural impingement." 6. Laboratory tests have revealed a low Vitamin B 12 and folate levels. 7. The patient's history, neurological examination, and imaging studies are most compatible with a significant left hemiparesis sparing the face with significant give-way weakness, which is still unexplained. The old deep white matter lesions are most probably old infarcts. She is Vitamin B12 and Folic acid deficient. Recommendations 1. Continue present management. 2. Vitamin B12 - 1000 mcg SC x 3 days and then monthly. 3. Folic acid 1 mg po daily. 4. Anticoagulation should be continued to prevent further strokes. 5. Physical and occupational therapy to mobilize. 6. Treatment of infectious process as is being done right now. Ivan Brooks M.D., M.S.P.IVAN LAMB Jan 04, 2018 10:34
[2018-01-04 10:41] LABS: BASOPHILS % (AUTO) 1.2 % (0.0-2.0); EOSINOPHILS % (AUTO) 5.5 % (0.0-3.0); HEMATOCRIT 29.3 % (37.0-47.0); HEMOGLOBIN 9.3 G/DL (12.0-16.0); LYMPHOCYTES % (AUTO) 27.7 % (20.0-45.0); MEAN CORPUSCULAR VOLUME 90 FL (80-99); MONOCYTES % (AUTO) 13.9 % (1.0-10.0); NEUTROPHILS % (AUTO) 51.8 % (45.0-75.0); PLATELET COUNT 277 K/UL (150-450); RED BLOOD COUNT 3.27 M/UL (4.20-5.40); WHITE BLOOD COUNT 4.4 K/UL (4.8-10.8)
[2018-01-04 10:45] LABS: ALANINE AMINOTRANSFERASE 16 U/L (12-78); ALBUMIN 2.8 G/DL (3.4-5.0); ALKALINE PHOSPHATASE 131 U/L (46-116); ANION GAP 5 mmol/L (5-15); ASPARTATE AMINO TRANSFERASE 12 U/L (15-37); BILIRUBIN,TOTAL 0.2 MG/DL (0.2-1.0); BLOOD UREA NITROGEN 12 mg/dL (7-18); CALCIUM 8.3 MG/DL (8.5-10.1); CARBON DIOXIDE 29 MMOL/L (21-32); CHLORIDE 107 MMOL/L (98-107); CREATININE 1.1 MG/DL (0.55-1.30); POTASSIUM 3.5 MMOL/L (3.5-5.1); SODIUM 141 MMOL/L (136-145)
[2018-01-04] MEDS ORDERED: Vitamin B12 1000mcg/ml Inj SUBQ SCH (12:00)
[2018-01-04 12:14] VITALS: BP 132/80
[2018-01-04 16:00] VITALS: BP 117/86
[2018-01-04] MEDS: Xarelto 10mg tab ORAL SCH (17:17)
--- NOTE | 2018-01-04 17:30 | Consultation ---
DATE OF CONSULTATION: 01/04/2018 INFECTIOUS DISEASES CONSULTATION CONSULTING PHYSICIAN: Gisell Domingo M.D. REFERRING PHYSICIAN: Chas Brady M.D. REASON FOR CONSULTATION: Thoracic spine osteomyelitis. HISTORY OF PRESENT ILLNESS: This is a 37-year-old lady with history of lupus, hypercoagulable state, prior history of stroke, DVT, pulmonary embolism who had T-spine osteomyelitis with Staphylococcus aureus. She states she has been getting IV vancomycin for the last three weeks. She started having increasing left-sided weakness and an Infectious Diseases consultation has been obtained for T-spine osteomyelitis. PAST MEDICAL HISTORY: 1. History of lupus. 2. History of hemolytic anemia. 3. History of hypercoagulable state. 4. History of stroke. 5. History of TIA. 6. History of DVT. 7. Pulmonary embolism. 8. Cholecystectomy. 9. Appendectomy. 10. Status post IVC filter placement. 11. Tonsillectomy. 12. Cataract surgery. MEDICATIONS: As an inpatient, she is on cyanocobalamin, folic acid, Xarelto, Colace, Soma, metoprolol, Plaquenil, IV vancomycin, Benadryl, Ambien, Zofran and Dilaudid. ALLERGIES: 1. Aspirin. 2. Chlorhexidine. 3. CT contrast. 4. Ketorolac. 5. NSAIDs. 6. Plastic. 7. Sulfa. SOCIAL HISTORY: She does not smoke, drink, or use drugs. FAMILY HISTORY: Positive for coronary artery disease. REVIEW OF SYSTEMS: RESPIRATORY: She denies any fever, chills, cough, shortness of breath, or chest pain. CARDIAC: No chest pain. No palpitation. No dizziness. No syncope. GASTROINTESTINAL: No nausea. No vomiting. No abdominal pain or diarrhea. MUSCULOSKELETAL: She complains of left-sided weakness and back pain. PHYSICAL EXAMINATION: VITAL SIGNS: Temperature of 97 degrees, T-max of 98.2 degrees, pulse of 81, respiratory rate 20, blood pressure 120/90, and O2 saturation of 96%. HEENT: Pupils equally reactive to light and accommodation. Mouth appears clean without thrush. NECK: Supple. No adenopathy. No JVD. CARDIOVASCULAR: Regular rate and rhythm. No murmurs. LUNGS: Clear to auscultation bilaterally. No crackles. No wheezes. ABDOMEN: Soft and nontender. No organomegaly. EXTREMITIES: No cyanosis, no clubbing, and no edema. Right-sided subclavian catheter noted. LABORATORY AND DIAGNOSTIC DATA: White count 4.4, hemoglobin 9.3, hematocrit 29.3, MCV 90, and platelet count of 277 with neutrophils of 51%. Sodium 141, potassium 3.5, chloride 107, bicarbonate 29, BUN 12, creatinine 1.1, and glucose 81. Calcium 8.3. Total bilirubin 0.2. AST 12, ALT 16 and alkaline phosphatase 131. Total protein 5.5. Albumin 2.5. UA showing 2 to 4 white cells. RPR is negative. Cervical spine MRI showing slightly irregular inferior C7 and C6, T1 endplates, may reflect sequelae of cervicothoracic osteomyelitis. A 2D echocardiogram showing mild to moderate mitral regurgitation and trace to mild tricuspid regurgitation. MRI of the brain showing no evidence of stroke, intracranial hemorrhage, mass effect, or midline shift. There may be chronic microvascular ischemic changes. Chest x-ray is unremarkable. CT head is showing no evidence of hemorrhage, mass effect, or edema. ASSESSMENT: 1. This is a 37-year-old lady with history of lupus with hypercoagulable state, who comes in with thoracic osteomyelitis and now comes in with increasing left-sided weakness. 2. Thoracic spine osteomyelitis with Staphylococcus aureus. 3. Lupus. 4. Hypercoagulable state. PLAN: 1. Continue IV vancomycin for three more weeks. 2. We will follow up the patient clinically. 3. We will follow up with . I would like to thank, Dr. Brady, for this consultation. Gisell Domingo M.D. DR: BLAINE JOB#: [id number] CC: Chas Brady M.D.
[2018-01-04] MEDS: Vancomycin 1 GM in D5W 275 ML IVPB SCH (18:26)
[2018-01-04 20:00] VITALS: BP 104/72
--- NOTE | 2018-01-04 23:45 | Consultation ---
DATE OF CONSULTATION: 01/04/2018 REASON FOR CONSULTATION: Possible stroke, left upper and left lower extremity weakness as well as history of osteomyelitis of the spine, thoracic 2 through 7. HISTORY OF PRESENT ILLNESS: The patient is a 37-year-old with history of lupus, lupus anticoagulants, hypercoagulable state, status post multiple DVTs, status post pulmonary embolism, status post multiple CVAs, and TIAs with history of osteomyelitis, receiving outpatient antibiotic therapy (vancomycin). By report, the [place]. She has been treated through the [facility] in the past and by report is scheduled to go back there in February to undergo multilevel thoracic fusion. The patient indicates that several days ago, she started developing weakness in the left upper and left lower extremity and presented to the emergency room to rule out stroke. On evaluation, CAT scan was negative. The patient was admitted for observation. The patient complains of left-sided weakness in the left arm and left leg. She indicates what is different on this admission as compared to the past is that she has a numbing sensation from the top of her head to the bottom of her toes including the inside of her ear canal bilaterally. PAST MEDICAL HISTORY: As noted above as well as history of hemolytic anemia. PAST SURGICAL HISTORY: Includes cholecystectomy, appendectomy, IVC filters, cataract surgery, and tonsillectomy. MEDICATIONS: Medication in the chart is reviewed. ALLERGIES: Aspirin, chlorhexidine, CT contrast, NSAIDs, ketorolac, plastic, and sulfa. PHYSICAL EXAMINATION: GENERAL: The patient is lying flat in the hospital bed. She has functional range of motion of her cervical spine during the evaluation. EXTREMITIES: Examination of the right upper and right lower extremities are normal. Examination of the left upper and left lower extremity demonstrates give way weakness throughout all muscle groups tested. Sensation is grossly intact both upper and both lower extremities. Reflexes are symmetric. She has negative clonus. Negative Babinski. Negative upper motor neuron findings. IMAGING: MRI of the cervical spine was reviewed demonstrating mild endplate degenerative changes at C6-C7 and at C7-T1. No evidence of osteomyelitis down to T4. Spinal cord is of normal size and caliber. DIAGNOSES: 1. Left upper and left lower extremity weakness, etiology unknown. 2. History of osteomyelitis ? PLAN: At this point, I would recommend thoracic MRI as well as obtaining records from outside facility. I doubt that there is a surgical problem as it relates to the upper extremity and lower extremity weakness on the left side. Zac Paris Barboza DR: Tristan JOB#: [id number] CC: JEAN
[2018-01-05] VITALS: BP 106/57
[2018-01-05] MEDS ORDERED: Zolpidem 5mg tab ORAL PRN (01:30)
[2018-01-05] MEDS: DiphenhydrAMINE 50mg/ml Inj IVP PRN ×4 (01:42→16:36)
[2018-01-05 03:13] VITALS: BP 110/69
[2018-01-05] MEDS: Vancomycin 1 GM in D5W 275 ML IVPB SCH ×2 (05:02→16:36)
[2018-01-05 08:00] VITALS: BP 142/71
--- NOTE | 2018-01-05 09:28 | Diagnostic Imaging Report ---
Indication: Back pain and upper extremity weakness Technique: MRI of the thoracic spine performed without contrast material. Sagittal T1 FSE, sagittal T2 FRFSE, sagittal STIR, axial T2 FRFSE, and axial T1-weighted images were obtained. Comparison: None. Findings: Alignment of the cervical spine is intact. The vertebral bodies are unremarkable. The discs are maintained with exception of T4-5 which is slightly narrowed. The subarachnoid space is normal. The cord is normal. The paravertebral soft tissues are unremarkable. The remainder of the study is normal. Impression: Minimal narrowing of the T4-T5 disc. Study is essentially normal.
[2018-01-05] MEDS: Docusate 100mg cap ORAL SCH ×2 (09:51→18:01)
[2018-01-05] MEDS: Metoprolol Succinate XL 25mg tab ORAL SCH (09:51)
[2018-01-05] MEDS: Vitamin B12 1000mcg/ml Inj SUBQ SCH (09:53)
[2018-01-05] MEDS ORDERED: NS 275ml ONE ×2 (11:12→15:28)
[2018-01-05] MEDS ORDERED: Tubing IV Secondary IV ONE ×2 (11:12→15:28)
--- NOTE | 2018-01-05 11:30 | General Progress Note ---
Assessment/Plan Problem List: (1) Hypercoagulable state ICD Codes: D68.59 - Other primary thrombophilia SNOMED: 39939638 (2) Lupus (systemic lupus erythematosus) ICD Codes: M32.9 - Systemic lupus erythematosus, unspecified SNOMED: 64715362 (3) Lupus anticoagulant disorder ICD Codes: D68.62 - Lupus anticoagulant syndrome SNOMED: 93068856 (4) Lupus anticoagulant syndrome ICD Codes: D68.62 - Lupus anticoagulant syndrome SNOMED: 33958134 (5) Chest pain ICD Codes: R07.9 - Chest pain, unspecified SNOMED: 80037897 Qualifiers: Qualified Codes: R07.1 - Chest pain on breathing (6) Left arm weakness ICD Codes: R29.898 - Other symptoms and signs involving the musculoskeletal system SNOMED: 803265376 Status: stable, progressing Assessment/Plan xarelto follow up mri spine(thoracic/lumbar) po pain x xarelto for hypercoag state Subjective Allergies: Coded Allergies: ASPIRIN (Verified Allergy, Unknown, 01/01/18) CHLORHEXIDINE (Unverified Allergy, Unknown, 12/18/16) KETOROLAC (Verified Allergy, Unknown, 09/25/16) NSAIDS (NON-STEROIDAL ANTI-INFLAMMA (Verified Allergy, Unknown, 09/25/16) SULFA (SULFONAMIDE ANTIBIOTICS) (Verified Allergy, Unknown, 09/25/16) Uncoded Allergies: CT CONTRAST (Allergy, Unknown, 09/25/16) CT Contrast PLASTIC (Allergy, Unknown, 09/25/16) Plastic tape Subjective still weakn left UE. MRI negative for acute stroke. CT noted. MRI cervical spine. no osteo. still c/o LUE weakness. does not feel like she could manage at home. Objective Last 24 Hour Vital Signs Date Time Temp Pulse Resp B/P (MAP) Pulse Ox O2 Delivery O2 Flow Rate FiO2 01/05/18 10:51 97.9 01/05/18 09:52 97.9 01/05/18 09:51 80 142/71 01/05/18 08:00 97.9 80 19 142/71 97 97.9 01/05/18 03:13 97.0 76 20 110/69 97 Room Air 97.0 01/05/18 00:00 97.9 86 20 106/57 97.9 01/04/18 20:00 97.3 89 20 104/72 99 97.3 01/04/18 18:24 98.2 01/04/18 18:02 98.2 01/04/18 17:32 98.2 01/04/18 16:00 98.2 85 21 117/86 97 98.2 01/04/18 12:14 97.7 83 20 132/80 96 Room Air 97.7 01/04/18 12:00 80 Intake and Output 01/04/18 01/05/18 19:00 07:00 Intake Total 1000 ml 551.124 ml Balance 1000 ml 551.124 ml Intake Oral 1000 ml IV Total 551.124 ml # Voids 1 33 Height (Feet): 5 Height (Inches): 3.00 Weight (Pounds): 179 Objective General Appearance: WD/WN, alert Neck: supple Cardiovascular: regular rhythm Respiratory/Chest: lungs clear Abdomen: normal bowel sounds, non tender, soft, no organomegaly Edema: no edema noted Arm (L), no edema noted Arm (R), no edema noted Leg (L), no edema noted Leg (R), no edema noted Pedal (L), no edema noted Pedal (R), no edema noted Generalized Neurologic: motor weakness ISABEL RODRIGUEZ Jan 05, 2018 11:30
[2018-01-05 12:00] VITALS: BP 116/74
[2018-01-05] MEDS: HYDROcodone/Acetamin 10/325 tab ORAL PRN ×2 (12:04→16:35)
[2018-01-05] MEDS ORDERED: D5W 275ml ONE (15:28)
[2018-01-05 16:00] VITALS: BP 123/61
--- NOTE | 2018-01-05 16:00 | Neurology Progress Note ---
Interim History Interim History Interim History Ms. Sterling feels a little better generally. The weakness on the left side is about the same. The altered sensations over the body are also the same. She has noticed no new neurologic symptoms. She took a few steps with the PT today. Review of Systems Neuro Review of Systems Benign. Objective Physical Exam Last Vital Signs Date Time Temp Pulse Resp B/P (MAP) Pulse Ox O2 Delivery O2 Flow Rate FiO2 01/05/18 14:19 97.9 01/05/18 12:00 78 18 116/74 98 01/05/18 03:13 Room Air Neurologic Exam Objective PHYSICAL EXAMINATION: GENERAL: She is a well-developed, well-nourished, slightly obese, lady, lying in bed, in no acute distress. HEAD: Normocephalic and atraumatic. EENT: Examination benign. NECK: No neck rigidity was observed. NEUROLOGICAL EXAMINATION: MENTAL STATUS EXAMINATION: She was awake and alert. She was oriented to person, place and time. She was able to recall 3/3 words immediately, and after 1 & 3 minutes. She was able to remember presidents [employer] through [employer] with minimal hints. Her mathematical skills were good. Her visuospatial function was preserved. SPEECH: She had no dysarthria. LANGUAGE: She had no aphasia. CRANIAL NERVE EXAMINATION: II: The visual so were intact on confrontation testing. III, IV & : The external ocular movements were full and the pupils 3 mm in diameter, equal, round, regular, and reactive to light. V: She had normal facial sensations and the temporales, masseters, and pterygoids functioned normally. VII: She had normal facial expressions and no facial asymmetry. VIII: She was able to hear well bilaterally and had no nystagmus. IX: The palate moved symmetrically on phonation. X: She had no hoarseness of voice. XI: The sternocleidomastoids and trapezii functioned normally. XII: The tongue was in the midline without any fasciculations or atrophy. MOTOR SYSTEM: The tone was normal in all four extremities. Examination of muscle mass revealed no focal wasting. Examination of power revealed grade 5/5 power on the right side. On the left side, she has grade 3/5 power, but there was a significant amount of give-way weakness making accurate assessment of power impossible. SENSORY EXAMINATION: She had intact sensations to pinprick, light touch, and graphesthesia. COORDINATION: She performed well on guizum-bd-yiwx testing bilaterally. She performed well on kzus-mo-tywf testing on the right side, but was unable to perform on the left side. REFLEXES: 1+ and bilaterally symmetrical at the biceps, triceps, brachioradialis, and ankles and 2+ at both knees. The plantar responses were flexor bilaterally. STANCE: She stood up with support on the right side. GAIT: She walked with support on the right side dragging her left leg. Impression/Recommendations Diagnostic Impression 1. Ms. 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 2. She feels a little better. The weakness is about the same. The altered sensations over the body are also the same. She has noticed no new neurologic symptoms. 3. On neurological examination, at this time, she does have mild mild problems with memory, weakness with significant give-way on the left side, and diminished deep tendon reflexes except for normal knee jerks and a left paretic gait. 4. An MRI scan of the brain reveals old bilateral deep white matter disease, most probably of an ischemic nature, but no acute pathology. 5. The MRI of the Cervical spine done on 01/03/18 revealed: " An essentially unremarkable exam. No cervical spinal cord abnormality to suggest demyelinating disease or other significant pathology demonstrated. Slightly irregular indistinct inferior C7 and C6. T1 endplates, may reflect sequela of stated clinical history of prior cervicothoracic osteomyelitis or could just be on the basis of mild degenerative changes. No evidence of active inflammation. No evidence of neural impingement." 6. Laboratory tests have revealed a low Vitamin B 12 and folate levels. 7. The patient's history, neurological examination, and imaging studies are most compatible with a significant left hemiparesis sparing the face with significant give-way weakness, which is still unexplained. The old deep white matter lesions are most probably old ischemic changes. She is Vitamin B12 and Folic acid deficient. Recommendations 1. Continue present management. 2. Vitamin B12 - 1000 mcg SC x 3 days and then monthly. 3. Folic acid 1 mg po daily. 4. Anticoagulation should be continued to prevent further strokes. 5. Physical and occupational therapy to mobilize. 6. Treatment of infectious process as is being done right now. Ivan Hoffman M.D., M.S.P.Gila. IVAN HOFFMAN Jan 05, 2018 16:00
[2018-01-05] MEDS: Xarelto 10mg tab ORAL SCH (16:51)
[2018-01-05 20:00] VITALS: BP 130/77
[2018-01-06] VITALS: BP 132/76
[2018-01-06] MEDS: DiphenhydrAMINE 50mg/ml Inj IVP PRN ×2 (03:56→17:42)
[2018-01-06] MEDS: Vancomycin 1 GM in D5W 275 ML IVPB SCH ×2 (03:56→17:31)
[2018-01-06] MEDS: HYDROcodone/Acetamin 10/325 tab ORAL PRN ×3 (03:57→17:42)
[2018-01-06 04:28] VITALS: BP 147/99
[2018-01-06 08:00] VITALS: BP 128/59
--- NOTE | 2018-01-06 09:42 | Infectious Diseases Prog Note ---
Assessment/Plan Assessment/Plan A; Thoracic spine osteomyelitis SLE Anemia Hypercoagulable state P; Continue IV Vancomycin Subjective ROS Limited/Unobtainable: No Constitutional: Reports: no symptoms Cardiovascular: Reports: no symptoms Gastrointestinal/Abdominal: Reports: no symptoms Genitourinary: Reports: no symptoms Allergies: Coded Allergies: ASPIRIN (Verified Allergy, Unknown, 01/01/18) CHLORHEXIDINE (Unverified Allergy, Unknown, 12/18/16) KETOROLAC (Verified Allergy, Unknown, 09/25/16) NSAIDS (NON-STEROIDAL ANTI-INFLAMMA (Verified Allergy, Unknown, 09/25/16) SULFA (SULFONAMIDE ANTIBIOTICS) (Verified Allergy, Unknown, 09/25/16) Uncoded Allergies: CT CONTRAST (Allergy, Unknown, 09/25/16) CT Contrast PLASTIC (Allergy, Unknown, 09/25/16) Plastic tape Objective Vital Signs Last 24 Hour Vital Signs Date Time Temp Pulse Resp B/P (MAP) Pulse Ox O2 Delivery O2 Flow Rate FiO2 01/06/18 08:00 96.9 74 18 128/59 97 96.9 01/06/18 04:28 97.2 71 18 147/99 100 Room Air 97.2 01/06/18 00:00 97.8 68 18 132/76 95 Room Air 97.8 01/05/18 20:00 97.6 73 18 130/77 96 Room Air 97.6 01/05/18 19:00 97.7 01/05/18 18:01 97.7 01/05/18 17:34 97.7 01/05/18 16:35 97.7 01/05/18 16:00 97.7 76 18 123/61 98 97.7 01/05/18 13:20 97.9 01/05/18 12:04 97.9 01/05/18 12:00 98.2 78 18 116/74 98 98.2 01/05/18 09:52 97.9 01/05/18 09:51 80 142/71 Height (Feet): 5 Height (Inches): 3.00 Weight (Pounds): 179 General Appearance: no acute distress Respiratory/Chest: lungs clear Cardiovascular: normal rate, other - R subclavian line Extremities: no edema Neurologic/Psychiatric: alert, oriented x 3, responsive Current Medications Medications (Trade) Dose Ordered Sig/Clement Route PRN Reason Start Time Stop Time Status Last Admin Dose Admin Acetaminophen/ Hydrocodone Bitart ([place] 10/325) 1 tab Q4H PRN ORAL For Pain 01/05/18 09:00 01/12/18 08:59 01/06/18 03:57 Carisoprodol (Soma) 350 mg THREE TIMES A DAY ORAL 01/04/18 18:00 02/01/18 08:59 01/05/18 18:01 Diphenhydramine HCl (Benadryl) 50 mg Q4H PRN IVP Itching 01/04/18 17:45 02/01/18 01:44 01/06/18 03:56 Docusate Sodium (Colace) 100 mg TWICE A DAY ORAL 01/04/18 18:00 02/01/18 08:59 01/05/18 18:01 Folic Acid (Folate) 1 mg DAILY ORAL 01/05/18 09:00 02/03/18 10:59 01/05/18 10:03 Hydroxychloroquine Sulfate (Plaquenil) 400 mg DAILY ORAL 01/05/18 09:00 02/01/18 08:59 01/05/18 09:52 Metoprolol Succinate (Toprol XL) 25 mg DAILY ORAL 01/05/18 09:00 02/01/18 08:59 01/05/18 09:51 Ondansetron HCl (Zofran) 4 mg Q6H PRN IVP Nausea & Vomiting 01/04/18 19:30 02/01/18 01:29 Rivaroxaban (Xarelto) 20 mg QPM ORAL 01/04/18 16:30 02/02/18 12:59 01/05/18 16:51 Vancomycin HCl (Vanco rx to dose) 1 ea DAILY PRN MISC Per rx protocol 01/05/18 09:00 02/01/18 01:29 Vancomycin HCl 1 gm/Dextrose 275 ml @ 183.708 mls/hr Q12H IVPB 01/04/18 16:00 01/07/18 03:59 01/06/18 03:56 Zolpidem Tartrate (Ambien) 5 mg HSPRN PRN ORAL Insomnia 01/05/18 01:30 01/09/18 01:29 RORY VILLARREAL Jan 06, 2018 09:42
[2018-01-06] MEDS: Metoprolol Succinate XL 25mg tab ORAL SCH (09:52)
[2018-01-06] MEDS: Docusate 100mg cap ORAL SCH ×2 (09:52→17:41)
[2018-01-06] MEDS: Vitamin B12 1000mcg/ml Inj SUBQ SCH (09:53)
--- NOTE | 2018-01-06 09:59 | General Progress Note ---
Assessment/Plan Problem List: (1) Hypercoagulable state ICD Codes: D68.59 - Other primary thrombophilia SNOMED: 25255562 (2) Lupus (systemic lupus erythematosus) ICD Codes: M32.9 - Systemic lupus erythematosus, unspecified SNOMED: 88651070 (3) Lupus anticoagulant disorder ICD Codes: D68.62 - Lupus anticoagulant syndrome SNOMED: 25179394 (4) Lupus anticoagulant syndrome ICD Codes: D68.62 - Lupus anticoagulant syndrome SNOMED: 19995042 (5) Chest pain ICD Codes: R07.9 - Chest pain, unspecified SNOMED: 03835814 Qualifiers: Qualified Codes: R07.1 - Chest pain on breathing (6) Left arm weakness ICD Codes: R29.898 - Other symptoms and signs involving the musculoskeletal system SNOMED: 287255072 Status: stable Assessment/Plan po pain rx xarelto for hypercoag state dc planning Subjective ROS Limited/Unobtainable: No Constitutional: Reports: weakness HEENT: Reports: no symptoms Cardiovascular: Reports: no symptoms Respiratory: Reports: no symptoms Gastrointestinal/Abdominal: Reports: no symptoms Genitourinary: Reports: no symptoms Neurologic/Psychiatric: Reports: no symptoms Endocrine: Reports: no symptoms Hematologic/Lymphatic: Reports: no symptoms Allergies: Coded Allergies: ASPIRIN (Verified Allergy, Unknown, 01/01/18) CHLORHEXIDINE (Unverified Allergy, Unknown, 12/18/16) KETOROLAC (Verified Allergy, Unknown, 09/25/16) NSAIDS (NON-STEROIDAL ANTI-INFLAMMA (Verified Allergy, Unknown, 09/25/16) SULFA (SULFONAMIDE ANTIBIOTICS) (Verified Allergy, Unknown, 09/25/16) Uncoded Allergies: CT CONTRAST (Allergy, Unknown, 09/25/16) CT Contrast PLASTIC (Allergy, Unknown, 09/25/16) Plastic tape All Systems: reviewed and negative except above Subjective still weakn left UE. MRI negative for acute stroke. CT noted. MRI cervical spine and thoracic spine no osteo. still c/o LUE weakness. does not feel like she could manage at home. upset that her dilaudid was dcd Objective Last 24 Hour Vital Signs Date Time Temp Pulse Resp B/P (MAP) Pulse Ox O2 Delivery O2 Flow Rate FiO2 01/06/18 09:53 96.9 2/25/18 09:52 96.9 01/06/18 09:52 74 128/59 01/06/18 08:00 96.9 74 18 128/59 97 96.9 01/06/18 04:28 97.2 71 18 147/99 100 Room Air 97.2 01/06/18 00:00 97.8 68 18 132/76 95 Room Air 97.8 01/05/18 20:00 97.6 73 18 130/77 96 Room Air 97.6 01/05/18 19:00 97.7 01/05/18 18:01 97.7 01/05/18 17:34 97.7 01/05/18 16:35 97.7 01/05/18 16:00 97.7 76 18 123/61 98 97.7 01/05/18 13:20 97.9 01/05/18 12:04 97.9 01/05/18 12:00 98.2 78 18 116/74 98 98.2 Intake and Output 01/05/18 01/06/18 19:00 07:00 Intake Total 841.292 ml 367.416 ml Balance 841.292 ml 367.416 ml Intake Oral 750 ml IV Total 91.292 ml 367.416 ml # Bowel Movements 1 Height (Feet): 5 Height (Inches): 3.00 Weight (Pounds): 179 Objective General Appearance: WD/WN, alert Neck: supple Cardiovascular: regular rhythm Respiratory/Chest: lungs clear Abdomen: normal bowel sounds, non tender, soft, no organomegaly Edema: no edema noted Arm (L), no edema noted Arm (R), no edema noted Leg (L), no edema noted Leg (R), no edema noted Pedal (L), no edema noted Pedal (R), no edema noted Generalized Neurologic: motor weakness ISABEL RODRIGUEZ Jan 06, 2018 09:58
--- NOTE | 2018-01-06 10:15 | Neurology Progress Note ---
Interim History Interim History Interim History Ms. Sterling feels a little better generally. The weakness on the left side is about the same. The altered sensations over the body are also the same. She denies any new neurologic symptoms. She walked with the PT yesterday. She says she was a little steadier on her feet. Review of Systems Neuro Review of Systems Benign. Objective Physical Exam Last Vital Signs Date Time Temp Pulse Resp B/P (MAP) Pulse Ox O2 Delivery O2 Flow Rate FiO2 01/06/18 09:53 96.9 01/06/18 09:52 74 128/59 01/06/18 08:00 18 97 01/06/18 04:28 Room Air Neurologic Exam Objective PHYSICAL EXAMINATION: GENERAL: She is a well-developed, well-nourished, slightly obese, lady, lying in bed, in no acute distress. HEAD: Normocephalic and atraumatic. EENT: Examination benign. NECK: No neck rigidity was observed. NEUROLOGICAL EXAMINATION: MENTAL STATUS EXAMINATION: She was awake and alert. She was oriented to person, place and time. She was able to recall 3/3 words immediately, and after 1 & 3 minutes. She was able to remember presidents Trump through [employer] with minimal hints. Her mathematical skills were good. Her visuospatial function was preserved. SPEECH: She had no dysarthria. LANGUAGE: She had no aphasia. CRANIAL NERVE EXAMINATION: II: The visual so were intact on confrontation testing. III, IV & : The external ocular movements were full and the pupils 3 mm in diameter, equal, round, regular, and reactive to light. V: She had normal facial sensations and the temporales, masseters, and pterygoids functioned normally. VII: She had normal facial expressions and no facial asymmetry. VIII: She was able to hear well bilaterally and had no nystagmus. IX: The palate moved symmetrically on phonation. X: She had no hoarseness of voice. XI: The sternocleidomastoids and trapezii functioned normally. XII: The tongue was in the midline without any fasciculations or atrophy. MOTOR SYSTEM: The tone was normal in all four extremities. Examination of muscle mass revealed no focal wasting. Examination of power revealed grade 5/5 power on the right side. On the left side, she has grade 3/5 power, but there was a significant amount of give-way weakness making accurate assessment of power impossible. SENSORY EXAMINATION: She had intact sensations to pinprick, light touch, and graphesthesia. COORDINATION: She performed well on [id number] testing bilaterally. She performed well on [id number] testing on the right side, but was unable to perform on the left side. REFLEXES: 1+ and bilaterally symmetrical at the biceps, triceps, brachioradialis, and ankles and 2+ at both knees. The plantar responses were flexor bilaterally. STANCE: She stood up with support on the right side. GAIT: She walked with support on the right side dragging her left leg. Impression/Recommendations Diagnostic Impression 1. Ms. 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 2. She continues to feel a little better. The weakness is about the same. The altered sensations over the body are also the same. She has noticed no new neurologic symptoms. 3. On neurological examination, at this time, she does have mild mild problems with memory, weakness with significant give-way on the left side, and diminished deep tendon reflexes except for normal knee jerks and a left paretic gait. 4. An MRI scan of the brain reveals old bilateral deep white matter disease, most probably of an ischemic nature, but no acute pathology. 5. The MRI of the Cervical spine done on 01/03/18 revealed: " An essentially unremarkable exam. No cervical spinal cord abnormality to suggest demyelinating disease or other significant pathology demonstrated. Slightly irregular indistinct inferior C7 and C6. T1 endplates, may reflect sequela of stated clinical history of prior cervicothoracic osteomyelitis or could just be on the basis of mild degenerative changes. No evidence of active inflammation. No evidence of neural impingement." 6. Laboratory tests have revealed low Vitamin B 12 and folate levels. 7. The patient's history, neurological examination, and imaging studies are most compatible with a significant left hemiparesis sparing the face with significant give-way weakness, which is still unexplained. The old deep white matter lesions are most probably old ischemic changes. She is Vitamin B12 and Folic acid deficient. Recommendations 1. Continue present management. 2. Vitamin B12 - 1000 mcg SC monthly. 3. Folic acid 1 mg po daily. 4. Anticoagulation should be continued to prevent further strokes. 5. Physical and occupational therapy to mobilize. 6. Treatment of infectious process as is being done right now. Ivan Hoffman M.D., M.S.[facility]. IVAN HOFFMAN Jan 06, 2018 10:15
[2018-01-06 11:51] VITALS: BP 130/94
[2018-01-06 16:00] VITALS: BP 117/83
[2018-01-06] MEDS: Xarelto 10mg tab ORAL SCH (17:31)
[2018-01-06 20:00] VITALS: BP 109/71
[2018-01-07] VITALS: BP 109/72
[2018-01-07] MEDS: DiphenhydrAMINE 50mg/ml Inj IVP PRN ×3 (00:03→23:22)
[2018-01-07] MEDS: Vancomycin 750mg/NS 250ml 250 ML IVPB SCH ×3 (00:03→23:25)
[2018-01-07 04:00] VITALS: BP 129/88
[2018-01-07 08:00] VITALS: BP 141/98
--- NOTE | 2018-01-07 09:03 | General Progress Note ---
Assessment/Plan Problem List: (1) Hypercoagulable state ICD Codes: D68.59 - Other primary thrombophilia SNOMED: 88684251 (2) Lupus (systemic lupus erythematosus) ICD Codes: M32.9 - Systemic lupus erythematosus, unspecified SNOMED: 12408993 (3) Lupus anticoagulant disorder ICD Codes: D68.62 - Lupus anticoagulant syndrome SNOMED: 72827663 (4) Lupus anticoagulant syndrome ICD Codes: D68.62 - Lupus anticoagulant syndrome SNOMED: 32918889 (5) Chest pain ICD Codes: R07.9 - Chest pain, unspecified SNOMED: 05728152 Qualifiers: Qualified Codes: R07.1 - Chest pain on breathing (6) Left arm weakness ICD Codes: R29.898 - Other symptoms and signs involving the musculoskeletal system SNOMED: 366142765 Status: stable, progressing Assessment/Plan abx po pain rx xarelto for hypercoag state dc planning Subjective ROS Limited/Unobtainable: No Constitutional: Reports: malaise, weakness HEENT: Reports: no symptoms Cardiovascular: Reports: no symptoms Respiratory: Reports: no symptoms Gastrointestinal/Abdominal: Reports: no symptoms Genitourinary: Reports: no symptoms Neurologic/Psychiatric: Reports: pre-existing deficit Endocrine: Reports: no symptoms Hematologic/Lymphatic: Reports: no symptoms Allergies: Coded Allergies: ASPIRIN (Verified Allergy, Unknown, 01/01/18) CHLORHEXIDINE (Unverified Allergy, Unknown, 12/18/16) KETOROLAC (Verified Allergy, Unknown, 09/25/16) NSAIDS (NON-STEROIDAL ANTI-INFLAMMA (Verified Allergy, Unknown, 09/25/16) SULFA (SULFONAMIDE ANTIBIOTICS) (Verified Allergy, Unknown, 09/25/16) Uncoded Allergies: CT CONTRAST (Allergy, Unknown, 09/25/16) CT Contrast PLASTIC (Allergy, Unknown, 09/25/16) Plastic tape All Systems: reviewed and negative except above Subjective still weakn left UE. MRI negative for acute stroke. CT noted. MRI cervical spine and thoracic spine no osteo. still c/o LUE weakness. does not feel like she could manage at home. Objective Last 24 Hour Vital Signs Date Time Temp Pulse Resp B/P (MAP) Pulse Ox O2 Delivery O2 Flow Rate FiO2 01/07/18 04:00 Room Air 01/07/18 04:00 98.8 66 20 129/88 96 Room Air 98.8 01/07/18 00:00 98.2 69 20 109/72 98 Room Air 98.2 01/07/18 00:00 Room Air 01/06/18 20:00 97.7 76 19 109/71 96 Room Air 97.7 01/06/18 20:00 Room Air 01/06/18 18:41 99.2 01/06/18 18:41 99.2 01/06/18 17:42 99.2 01/06/18 17:42 99.2 01/06/18 16:00 99.2 78 20 117/83 97 99.2 01/06/18 13:38 98.7 01/06/18 11:51 98.7 81 18 130/94 98 98.7 01/06/18 09:53 96.9 01/06/18 09:52 96.9 01/06/18 09:52 74 128/59 Intake and Output 01/06/18 01/07/18 19:00 07:00 Intake Total 1110 ml 250.000 ml Balance 1110 ml 250.000 ml Intake Oral 1110 ml IV Total 250.000 ml # Voids 3 2 # Bowel Movements 1 Laboratory Tests 01/06/18 16:51: Vancomycin Level Trough 21.9H Height (Feet): 5 Height (Inches): 3.00 Weight (Pounds): 179 Objective General Appearance: WD/WN, alert Neck: supple Cardiovascular: regular rhythm Respiratory/Chest: lungs clear Abdomen: normal bowel sounds, non tender, soft, no organomegaly Edema: no edema noted Arm (L), no edema noted Arm (R), no edema noted Leg (L), no edema noted Leg (R), no edema noted Pedal (L), no edema noted Pedal (R), no edema noted Generalized Neurologic: motor weakness ISABEL RODRIGUEZ Jan 07, 2018 09:03
[2018-01-07] MEDS: HYDROcodone/Acetamin 10/325 tab ORAL PRN ×4 (09:05→21:52)
[2018-01-07] MEDS: Metoprolol Succinate XL 25mg tab ORAL SCH (09:07)
[2018-01-07] MEDS: Docusate 100mg cap ORAL SCH ×2 (09:08→17:38)
--- NOTE | 2018-01-07 09:47 | Neurology Progress Note ---
Interim History Interim History Interim History Ms. Sterling feels better generally. The weakness on the left side is about the same. The altered sensations over the body are gone! She denies any new neurologic symptoms. She walked with the PT this morning. She says she was a little steadier on her feet. Review of Systems Neuro Review of Systems Benign. Objective Physical Exam Last Vital Signs Date Time Temp Pulse Resp B/P (MAP) Pulse Ox O2 Delivery O2 Flow Rate FiO2 01/07/18 09:08 98.8 01/07/18 09:07 85 141/98 01/07/18 04:00 Room Air 01/07/18 04:00 20 96 Laboratory Tests Test 01/06/18 16:51 Vancomycin Level Trough 21.9 ug/mL (5.0-12.0) H Neurologic Exam Objective PHYSICAL EXAMINATION: GENERAL: She is a well-developed, well-nourished, slightly obese, lady, lying in bed, in no acute distress. HEAD: Normocephalic and atraumatic. EENT: Examination benign. NECK: No neck rigidity was observed. NEUROLOGICAL EXAMINATION: MENTAL STATUS EXAMINATION: She was awake and alert. She was oriented to person, place and time. She was able to recall 3/3 words immediately, and after 1 & 3 minutes. She was able to remember presidents Trump through [employer] with minimal hints. Her mathematical skills were good. Her visuospatial function was preserved. SPEECH: She had no dysarthria. LANGUAGE: She had no aphasia. CRANIAL NERVE EXAMINATION: II: The visual so were intact on confrontation testing. III, IV & : The external ocular movements were full and the pupils 3 mm in diameter, equal, round, regular, and reactive to light. V: She had normal facial sensations and the temporales, masseters, and pterygoids functioned normally. VII: She had normal facial expressions and no facial asymmetry. VIII: She was able to hear well bilaterally and had no nystagmus. IX: The palate moved symmetrically on phonation. X: She had no hoarseness of voice. XI: The sternocleidomastoids and trapezii functioned normally. XII: The tongue was in the midline without any fasciculations or atrophy. MOTOR SYSTEM: The tone was normal in all four extremities. Examination of muscle mass revealed no focal wasting. Examination of power revealed grade 5/5 power on the right side. On the left side, she has grade 3/5 power, but there was a significant amount of give-way weakness making accurate assessment of power impossible. SENSORY EXAMINATION: She had intact sensations to pinprick, light touch, and graphesthesia. COORDINATION: She performed well on [id number] testing bilaterally. She performed well on [id number] testing on the right side, but was unable to perform on the left side. REFLEXES: 1+ and bilaterally symmetrical at the biceps, triceps, brachioradialis, and ankles and 2+ at both knees. The plantar responses were flexor bilaterally. STANCE & GAIT: Were deferred. Impression/Recommendations Diagnostic Impression 1. Ms. 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 2. She continues to feel a little better. The weakness is about the same. she denies any altered sensations over the body today. She has noticed no new neurologic symptoms. 3. On neurological examination, at this time, she does have mild mild problems with memory, weakness with significant give-way on the left side, and diminished deep tendon reflexes except for normal knee jerks and a left paretic gait. 4. An MRI scan of the brain reveals old bilateral deep white matter disease, most probably of an ischemic nature, but no acute pathology. 5. The MRI of the Cervical spine done on 01/03/18 revealed: " An essentially unremarkable exam. No cervical spinal cord abnormality to suggest demyelinating disease or other significant pathology demonstrated. Slightly irregular indistinct inferior C7 and C6. T1 endplates, may reflect sequela of stated clinical history of prior cervicothoracic osteomyelitis or could just be on the basis of mild degenerative changes. No evidence of active inflammation. No evidence of neural impingement." 6. Laboratory tests have revealed low Vitamin B 12 and folate levels. 7. The patient's history, neurological examination, and imaging studies are most compatible with a significant left hemiparesis sparing the face with significant give-way weakness, which is still unexplained. The old deep white matter lesions are most probably old ischemic changes. She is Vitamin B12 and Folic acid deficient. Recommendations 1. Continue present management. 2. Vitamin B12 - 1000 mcg SC monthly. 3. Folic acid 1 mg po daily. 4. Anticoagulation should be continued to prevent further strokes. 5. Physical and occupational therapy to mobilize. 6. Treatment of infectious process as is being done right now. Ivan Hoffman M.D., M.S[facility]. IVAN HOFFMAN Jan 07, 2018 09:47
--- NOTE | 2018-01-07 11:33 | Infectious Diseases Prog Note ---
Assessment/Plan Assessment/Plan A; Thoracic spine osteomyelitis SLE Anemia Hypercoagulable state P; Continue IV Vancomycin Subjective ROS Limited/Unobtainable: No Constitutional: Reports: other - headache Respiratory: Reports: no symptoms Cardiovascular: Reports: no symptoms Gastrointestinal/Abdominal: Reports: no symptoms Genitourinary: Reports: no symptoms Allergies: Coded Allergies: ASPIRIN (Verified Allergy, Unknown, 01/01/18) CHLORHEXIDINE (Unverified Allergy, Unknown, 12/18/16) KETOROLAC (Verified Allergy, Unknown, 09/25/16) NSAIDS (NON-STEROIDAL ANTI-INFLAMMA (Verified Allergy, Unknown, 09/25/16) SULFA (SULFONAMIDE ANTIBIOTICS) (Verified Allergy, Unknown, 09/25/16) Uncoded Allergies: CT CONTRAST (Allergy, Unknown, 09/25/16) CT Contrast PLASTIC (Allergy, Unknown, 09/25/16) Plastic tape Objective Vital Signs Last 24 Hour Vital Signs Date Time Temp Pulse Resp B/P (MAP) Pulse Ox O2 Delivery O2 Flow Rate FiO2 01/07/18 09:08 98.8 01/07/18 09:07 85 141/98 01/07/18 08:00 98.0 92 18 141/98 97 Room Air 98.0 01/07/18 04:00 Room Air 01/07/18 04:00 98.8 66 20 129/88 96 Room Air 98.8 01/07/18 00:00 98.2 69 20 109/72 98 Room Air 98.2 01/07/18 00:00 Room Air 01/06/18 20:00 97.7 76 19 109/71 96 Room Air 97.7 01/06/18 20:00 Room Air 01/06/18 18:41 99.2 01/06/18 18:41 99.2 01/06/18 17:42 99.2 01/06/18 17:42 99.2 01/06/18 16:00 99.2 78 20 117/83 97 99.2 01/06/18 13:38 98.7 01/06/18 11:51 98.7 81 18 130/94 98 98.7 Height (Feet): 5 Height (Inches): 3.00 Weight (Pounds): 179 General Appearance: no acute distress HEENT: mucous membranes moist Respiratory/Chest: lungs clear Cardiovascular: normal rate, other - R subclavian line Abdomen: soft, non tender Extremities: no edema Neurologic/Psychiatric: alert, oriented x 3, responsive Laboratory Tests Test 01/06/18 16:51 Vancomycin Level Trough 21.9 ug/mL (5.0-12.0) H Current Medications Medications (Trade) Dose Ordered Sig/Clemetn Route PRN Reason Start Time Stop Time Status Last Admin Dose Admin Acetaminophen/ Hydrocodone Bitart ([place] 10/325) 1 tab Q4H PRN ORAL For Pain 01/05/18 09:00 01/12/18 08:59 01/07/18 09:05 Carisoprodol (Soma) 350 mg THREE TIMES A DAY ORAL 01/04/18 18:00 02/01/18 08:59 01/07/18 09:08 Diphenhydramine HCl (Benadryl) 50 mg Q4H PRN IVP Itching 01/04/18 17:45 02/01/18 01:44 01/07/18 00:03 Docusate Sodium (Colace) 100 mg TWICE A DAY ORAL 01/04/18 18:00 02/01/18 08:59 01/07/18 09:08 Folic Acid (Folate) 1 mg DAILY ORAL 01/05/18 09:00 02/03/18 10:59 01/07/18 09:08 Hydroxychloroquine Sulfate (Plaquenil) 400 mg DAILY ORAL 01/05/18 09:00 02/01/18 08:59 01/07/18 09:08 Metoprolol Succinate (Toprol XL) 25 mg DAILY ORAL 01/05/18 09:00 02/01/18 08:59 01/07/18 09:07 Ondansetron HCl (Zofran) 4 mg Q6H PRN IVP Nausea & Vomiting 01/04/18 19:30 02/01/18 01:29 Rivaroxaban (Xarelto) 20 mg QPM ORAL 01/04/18 16:30 02/02/18 12:59 01/06/18 17:31 Vancomycin HCl (Vanco rx to dose) 1 ea DAILY PRN MISC Per rx protocol 01/05/18 09:00 02/01/18 01:29 Vancomycin/Sodium Chloride 250 ml @ 166.667 mls/hr Q12HR@0000,1200 IVPB 01/07/18 00:00 01/12/18 00:00 01/07/18 00:03 Zolpidem Tartrate (Ambien) 5 mg HSPRN PRN ORAL Insomnia 01/05/18 01:30 01/09/18 01:29 RORY VILLARREAL Jan 07, 2018 11:32
[2018-01-07 12:00] VITALS: BP 132/82
[2018-01-07] MEDS: Xarelto 10mg tab ORAL SCH (15:56)
[2018-01-07 16:00] VITALS: BP 104/67
[2018-01-07 20:00] VITALS: BP 123/78
[2018-01-08] VITALS: BP 108/80
[2018-01-08 04:00] VITALS: BP 125/74
[2018-01-08 08:00] VITALS: BP 115/65
[2018-01-08] MEDS: Metoprolol Succinate XL 25mg tab ORAL SCH (08:07)
[2018-01-08] MEDS: Docusate 100mg cap ORAL SCH (08:07)
[2018-01-08] MEDS: HYDROcodone/Acetamin 10/325 tab ORAL PRN ×2 (08:09→12:13)
--- NOTE | 2018-01-08 08:56 | General Progress Note ---
Assessment/Plan Problem List: (1) Hypercoagulable state ICD Codes: D68.59 - Other primary thrombophilia SNOMED: 27019055 (2) Lupus (systemic lupus erythematosus) ICD Codes: M32.9 - Systemic lupus erythematosus, unspecified SNOMED: 10605648 (3) Lupus anticoagulant disorder ICD Codes: D68.62 - Lupus anticoagulant syndrome SNOMED: 69370277 (4) Lupus anticoagulant syndrome ICD Codes: D68.62 - Lupus anticoagulant syndrome SNOMED: 55338309 (5) Chest pain ICD Codes: R07.9 - Chest pain, unspecified SNOMED: 15121692 Qualifiers: Qualified Codes: R07.1 - Chest pain on breathing (6) Left arm weakness ICD Codes: R29.898 - Other symptoms and signs involving the musculoskeletal system SNOMED: 089796330 Status: stable, progressing Assessment/Plan abx po pain rx xarelto for hypercoag state dc planning await appeal decision Subjective ROS Limited/Unobtainable: No Constitutional: Reports: malaise, weakness HEENT: Reports: no symptoms Cardiovascular: Reports: no symptoms Respiratory: Reports: no symptoms Gastrointestinal/Abdominal: Reports: no symptoms Genitourinary: Reports: no symptoms Neurologic/Psychiatric: Reports: no symptoms Endocrine: Reports: no symptoms Hematologic/Lymphatic: Reports: no symptoms Allergies: Coded Allergies: ASPIRIN (Verified Allergy, Unknown, 01/01/18) CHLORHEXIDINE (Unverified Allergy, Unknown, 12/18/16) KETOROLAC (Verified Allergy, Unknown, 09/25/16) NSAIDS (NON-STEROIDAL ANTI-INFLAMMA (Verified Allergy, Unknown, 09/25/16) SULFA (SULFONAMIDE ANTIBIOTICS) (Verified Allergy, Unknown, 09/25/16) Uncoded Allergies: CT CONTRAST (Allergy, Unknown, 09/25/16) CT Contrast PLASTIC (Allergy, Unknown, 09/25/16) Plastic tape All Systems: reviewed and negative except above Subjective states she cant walk up stairs. refused PT eval yesterday. extensive w/u unremarklable. Objective Last 24 Hour Vital Signs Date Time Temp Pulse Resp B/P (MAP) Pulse Ox O2 Delivery O2 Flow Rate FiO2 01/08/18 08:07 81 115/65 01/08/18 08:00 98.1 81 19 115/65 97 98.1 01/08/18 04:00 97.6 68 18 125/74 97 Room Air 97.6 01/08/18 00:00 98.1 71 18 108/80 96 Room Air 98.1 01/07/18 20:00 97.3 71 19 123/78 98 Room Air 97.3 01/07/18 16:00 98.1 76 18 104/67 96 Room Air 98.1 01/07/18 12:00 97.6 78 18 132/82 98 Room Air 97.6 01/07/18 09:08 98.8 01/07/18 09:07 85 141/98 Intake and Output 01/07/18 01/08/18 19:00 07:00 Intake Total 480 ml 250.000 ml Balance 480 ml 250.000 ml Intake Oral 480 ml IV Total 250.000 ml # Voids 1 2 Height (Feet): 5 Height (Inches): 3.00 Weight (Pounds): 179 Objective General Appearance: WD/WN, alert Neck: supple Cardiovascular: regular rhythm Respiratory/Chest: lungs clear Abdomen: normal bowel sounds, non tender, soft, no organomegaly Edema: no edema noted Arm (L), no edema noted Arm (R), no edema noted Leg (L), no edema noted Leg (R), no edema noted Pedal (L), no edema noted Pedal (R), no edema noted Generalized Neurologic: motor weakness ISABEL RODRIGUEZ Jan 08, 2018 08:56
[2018-01-08] MEDS: DiphenhydrAMINE 50mg/ml Inj IVP PRN (11:59)
[2018-01-08] MEDS: Vancomycin 750mg/NS 250ml 250 ML IVPB SCH (11:59)
[2018-01-08 12:00] VITALS: BP 133/84
--- NOTE | 2018-01-08 14:07 | Infectious Diseases Prog Note ---
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 lupus 3. hypercoagulable state P 1. continue iv vancomycin 2. will follow up cultures Subjective Constitutional: Denies: fever, chills Respiratory: Denies: shortness of breath, dry cough Gastrointestinal/Abdominal: Denies: nausea, vomiting, diarrhea Musculoskeletal: Reports: pain - back Allergies: Coded Allergies: ASPIRIN (Verified Allergy, Unknown, 01/01/18) CHLORHEXIDINE (Unverified Allergy, Unknown, 12/18/16) KETOROLAC (Verified Allergy, Unknown, 09/25/16) NSAIDS (NON-STEROIDAL ANTI-INFLAMMA (Verified Allergy, Unknown, 09/25/16) SULFA (SULFONAMIDE ANTIBIOTICS) (Verified Allergy, Unknown, 09/25/16) Uncoded Allergies: CT CONTRAST (Allergy, Unknown, 09/25/16) CT Contrast PLASTIC (Allergy, Unknown, 09/25/16) Plastic tape Objective Vital Signs Last 24 Hour Vital Signs Date Time Temp Pulse Resp B/P (MAP) Pulse Ox O2 Delivery O2 Flow Rate FiO2 01/08/18 12:00 97.7 67 19 133/84 98 97.7 01/08/18 08:07 81 115/65 01/08/18 08:00 98.1 81 19 115/65 97 98.1 01/08/18 04:00 97.6 68 18 125/74 97 Room Air 97.6 01/08/18 00:00 98.1 71 18 108/80 96 Room Air 98.1 01/07/18 20:00 97.3 71 19 123/78 98 Room Air 97.3 01/07/18 16:00 98.1 76 18 104/67 96 Room Air 98.1 Height (Feet): 5 Height (Inches): 3.00 Weight (Pounds): 179 Respiratory/Chest: lungs clear Cardiovascular: normal rate, regular rhythm, no gallop/murmur Abdomen: soft, non tender Extremities: no edema, other - right subclavian catheter JAY ISRAEL Jan 08, 2018 14:07
[2018-01-08 16:00] VITALS: BP 122/85
[2018-01-08] MEDS: Xarelto 10mg tab ORAL SCH (16:03)
--- NOTE | 2018-01-08 16:22 | Orthopedic Spine Progress Note ---
Ortho Spine - Progress Note Subjective Symptoms: improved - slightly improved. able to walk with PT Objective Vital Signs: Last 24 Hour Vital Signs Date Time Temp Pulse Resp B/P (MAP) Pulse Ox O2 Delivery O2 Flow Rate FiO2 01/08/18 12:00 97.7 67 19 133/84 98 97.7 01/08/18 08:07 81 115/65 01/08/18 08:00 98.1 81 19 115/65 97 98.1 01/08/18 04:00 97.6 68 18 125/74 97 Room Air 97.6 01/08/18 00:00 98.1 71 18 108/80 96 Room Air 98.1 01/07/18 20:00 97.3 71 19 123/78 98 Room Air 97.3 I&O: Intake and Output 01/07/18 01/08/18 19:00 07:00 Intake Total 480 ml 250.000 ml Balance 480 ml 250.000 ml Intake Oral 480 ml IV Total 250.000 ml # Voids 1 2 Neuro Status: other - unchanged from last week Additional Comments: MRi t spine without evidence of thoracic osteomyelitis Plan Plan: PT Additional Comments: no evidence of thoracic osteo. Mri t spine essentially normal. recommend obtaining records from [facility] and [facility]. No surgical indication at this time. I will sign off. RITA KINCAID Jan 08, 2018 16:22
[2018-01-08] MEDS ORDERED: NORCO 10-325 T1 EACH ORAL (17:17)
[2018-01-08] MEDS ORDERED: Tubing IV Secondary IV ONE (17:55)
--- NOTE | 2018-01-10 13:56 | Discharge Summary ---
Discharge Summary Hospital Course Date of Admission Jan 01, 2018 at 22:05 Date of Discharge Jan 08, 2018 at 17:56 Admitting Diagnosis chest pain,TIA HPI Kirsty Sterling is a 37 year old female who was admitted on Jan 01, 2018 at 22 :05 for Chest Pain,Transient Ischemic Attack Hospital Course [id number] Discharge Discharge Disposition Patient was discharged to Home (01) Discharge Diagnoses: Izabel Malin NP Jan 10, 2018 13:56
--- NOTE | 2018-01-11 05:00 | Discharge Summary 2 SIG ---
DATE OF ADMISSION: 01/01/2018 DATE OF DISCHARGE: 01/08/2018 CONSULTANTS: 1. Jeff Brooks M.D. 2. Gisell Domingo M.D. 3. Zac Barboza M.D. BRIEF HOSPITAL COURSE: The patient is a 37-year-old female with history of lupus, lupus anticoagulant hypercoagulable state. She had prior history of stroke, pulmonary embolism, and deep venous thrombosis. She claims to have spinal thoracic osteomyelitis and currently on outpatient antibiotic therapy. She had nine strokes in the past and had been on Coumadin and other novel oral anticoagulants. On the evening prior to admission, she developed chest pain and left arm weakness. She presented to emergency room where on evaluation CT scan of the head was negative. Laboratory tests were likewise unremarkable. Due to persistent left-sided weakness, the patient was admitted for further care. She was given anticoagulation. She was placed on heparin drip. She was followed by Dr. Brooks. The patient complained of subjective alteration in sensations over entire body and says whole body felt numb. On neurological examination, she had mild disorientation. She had weakness with significant give way on the left side and diminished deep tendon reflexes except for normal knee jerk and a left paretic gait. MRI of the brain revealed old bilateral deep white matter disease most probably of an ischemic nature but no acute pathology. She was continued on anticoagulation, haparin was switched to Xarelto. She underwent physical and occupational therapy. She was seen by Infectious diseases specialist and was continued on vancomycin. She had a cervical spine MRI which showed unremarkable exam with no evidence of neural impingement. Spine surgeon was consulted. Thoracic MRI showed essentially normal results, no evidence of thoracic osteomyelitis. There was no surgical indication needed at this time. She was cleared for discharge home however the patient appealed discharge. She eventually left on following day on 01/08/2018. FINAL DIAGNOSES: 1. Hypercoagulable state. 2. Lupus. 3. Systemic lupus erythematosus. 4. Lupus anticoagulant disorder. 5. Chest pain. 6. Left arm weakness. 7. Left hemiparesis. 8. Possible thoracic spine osteomyelitis. DISPOSITION: The patient was discharged home. DISCHARGE MEDICATIONS: Refer to medication list. Continue with vancomycin. DISCHARGE INSTRUCTIONS: Followup with PMD in a week. Chas Brady M.D. I have been assigned to dictate discharge summary on this account and I was not involved in the patient's management. Izabel Malin N.P. DR: Len JOB#: [id number] CC: JEAN
== END 2018-01-08 17:56 | disposition home or self-care (01) | DRG 57 ==
LOC: EMR 21:48 → EDBEDREQ 21:51 → 2E 22:05 → EDBEDREQ 22:19 → 4W 01-04 16:21
DX: G81.94 Hemiplegia, unspecified affecting left nondominant side (principal); D68.62 Lupus anticoagulant syndrome; M32.9 Systemic lupus erythematosus, unspecified; M46.24 Osteomyelitis of vertebra, thoracic region; B95.61 Methicillin susceptible Staphylococcus aureus infection as the cause of diseases classified elsewhere; R07.9 Chest pain, unspecified; R20.0 Anesthesia of skin; Z86.73 Personal history of transient ischemic attack (TIA), and cerebral infarction without residual deficits; Z88.2 Allergy status to sulfonamides; Z88.8 Allergy status to other drugs, medicaments and biological substances; Z88.6 Allergy status to analgesic agent; Z91.041 Radiographic dye allergy status; Z86.711 Personal history of pulmonary embolism; Z86.718 Personal history of other venous thrombosis and embolism; R26.2 Difficulty in walking, not elsewhere classified
CPT/HCPCS: 36415; 70450; 70551; 71045; 72146; 72156; 80053; 80202; 80307; 81003; 81025; 82306; 82550; 82607; 82746; 83036; 83880; 84165; 84443; 84484; 85025; 85610; 85730; 86592; 93005; 93306; 99285; A9585; J2405

== ENCOUNTER 2018-02-04 13:30 | Emergency (ER) | payer MEDICARE ==
[~2018-02-04] VITALS: Ht 160 cm; Wt 78.0 kg
[~2018-02-04 13:30] MED LIST changes: +DILAUDID 22 MG/1 M1 IJ; +DIPHENHYDR50 MG/1 M1 IJ; +DOCUSATE SODIU100 MG ORAL; +NORCO 10-325 T1 EACH ORAL; +SOMA350 MG PO; +ZOFRAN4 M3 ORAL
[2018-02-04] MEDS ORDERED: Sodium Chloride 500ML 500 ML IV ONE (14:00)
--- NOTE | 2018-02-04 14:07 | Emergency Room Report ---
History of Present Illness General Chief Complaint: Stroke Symptoms Source: Patient Present Illness HPI Patient is a 37-year-old female who presents after increased left-sided weakness. Patient reports having increased pain to her left lower extremity. She reports having some chest discomfort. Patient reports having prior history of cardiac disease with a PFO as well as multiple pulmonary embolisms. Patient states that she had been followed in [place]. The patient reports having onset of symptoms approximately 2 hours ago. She states that she had previously been prescribed several toe. She has a PICC line which had been placed in [place] several weeks ago. The patient denies any fever. She denies any productive cough. The patient reports having difficulty with movements to her left upper extremity. As well as her left leg. She reports having a right-sided facial droop. Allergies: Coded Allergies: ASPIRIN (Verified Allergy, Unknown, 01/01/18) CHLORHEXIDINE (Unverified Allergy, Unknown, 12/18/16) KETOROLAC (Verified Allergy, Unknown, 09/25/16) NSAIDS (NON-STEROIDAL ANTI-INFLAMMA (Verified Allergy, Unknown, 09/25/16) SULFA (SULFONAMIDE ANTIBIOTICS) (Verified Allergy, Unknown, 09/25/16) Uncoded Allergies: CT CONTRAST (Allergy, Unknown, 09/25/16) CT Contrast PLASTIC (Allergy, Unknown, 09/25/16) Plastic tape Patient History Past Medical History: see triage record Last Menstrual Period: now Now: No Reviewed Nursing Documentation: PMH: Agreed; PSxH: Agreed Nursing Documentation-PMH Past Medical History: No History, Except For Hx Cardiac Problems: Yes - Hemolytic anemia, PE [id number] Hx Cancer: No Hx Gastrointestinal Problems: No Hx Neurological Problems: Yes - Lupus, Osteomyletis Review of Systems All Other Systems: negative except mentioned in HPI Physical Exam Vital Signs Date Time Temp Pulse Resp B/P (MAP) Pulse Ox O2 Delivery O2 Flow Rate FiO2 02/04/18 13:36 97.9 117 18 129/88 97 Room Air 97.9 Sp02 EP Interpretation: reviewed, normal General Appearance: normal inspection, well appearing, no apparent distress, alert, GCS 15, obese Head: atraumatic ENT: normal ENT inspection, hearing grossly normal, normal voice Neck: normal inspection, full range of motion, supple, no bony tend Respiratory: normal inspection, lungs clear, normal breath sounds, no respiratory distress, no retraction, no wheezing Cardiovascular #1: regular rate, rhythm, no edema Gastrointestinal: normal inspection, normal bowel sounds, non tender, soft, no guarding, no hernia Genitourinary: no CVA tenderness Musculoskeletal: normal inspection, back normal, normal range of motion Neurologic: normal inspection, alert, oriented x3, responsive, 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 Tongue forcible deviation to left, normal eom Psychiatric: normal inspection, judgement/insight normal, mood/affect normal Skin: normal inspection, normal color, no rash Medical Decision Making Diagnostic Impression: Primary Impression: Somatization disorder Additional Impression: Atypical chest pain ER Course The patient presented for left-sided weakness and chest pain. Differential diagnosis included was not limited to factitious disorder, cerebritis, CVA, aortic dissection, pulmonary embolism, among others.Because of complexity of patient's case laboratory testing and imaging studies were ordered.Patient noted to have purposeful movements of the left side of her face when not formally tested. Patient shows no evidence of neurologic weakness. Pulses appear strong in both upper and lower extremities. DTRs are normal and toes are downgoing. Laboratory testing was ordered as well as EKG. Patient was given IV fluids.The patient does not appear to have any acute CVA or neurologic weakness. Patient is noted to have episodes of weakness which seemed to resolve immediately after testing and appeared volitional. The patient stated that she wanted to leave. The patient was noted to have previous history of PICC line placement and was receiving IV antibiotics. Labs Test 02/04/18 14:26 White Blood Count 12.1 K/UL (4.8-10.8) Red Blood Count 3.89 M/UL (4.20-5.40) Hemoglobin 11.4 G/DL (12.0-16.0) Hematocrit 35.0 % (37.0-47.0) Mean Corpuscular Volume 90 FL (80-99) Mean Corpuscular Hemoglobin 29.2 PG (27.0-31.0) Mean Corpuscular Hemoglobin Concent 32.4 G/DL (32.0-36.0) Red Cell Distribution Width 14.4 % (11.6-14.8) Platelet Count 328 K/UL (150-450) Mean Platelet Volume 6.4 FL (6.5-10.1) Neutrophils (%) (Auto) 76.9 % (45.0-75.0) Lymphocytes (%) (Auto) 13.5 % (20.0-45.0) Monocytes (%) (Auto) 8.6 % (1.0-10.0) Eosinophils (%) (Auto) 0.4 % (0.0-3.0) Basophils (%) (Auto) 0.6 % (0.0-2.0) Erythrocyte Sedimentation Rate 32 MM/HR (0-20) Sodium Level 145 MMOL/L (136-145) Potassium Level 4.1 MMOL/L (3.5-5.1) Chloride Level 110 MMOL/L (98-107) Carbon Dioxide Level 26 MMOL/L (21-32) Anion Gap 9 mmol/L (5-15) Blood Urea Nitrogen 18 mg/dL (7-18) Creatinine 1.2 MG/DL (0.55-1.30) Estimat Glomerular Filtration Rate 50.5 mL/min (>60) Glucose Level 99 MG/DL (74-106) Calcium Level 8.9 MG/DL (8.5-10.1) Total Bilirubin 0.2 MG/DL (0.2-1.0) Aspartate Amino Transf (AST/SGOT) 17 U/L (15-37) Alanine Aminotransferase (ALT/SGPT) 17 U/L (12-78) Alkaline Phosphatase 149 U/L (46-116) Total Protein 6.7 G/DL (6.4-8.2) Albumin 3.6 G/DL (3.4-5.0) Globulin 3.1 g/dL Albumin/Globulin Ratio 1.2 (1.0-2.7) EKG Diagnostic Results Rate: tachycardiac Rhythm: NSR ST Segments: no acute changes Last Vital Signs Date Time Temp Pulse Resp B/P (MAP) Pulse Ox O2 Delivery O2 Flow Rate FiO2 02/04/18 13:36 97.9 117 18 129/88 97 Room Air 97.9 Status: improved Disposition: HOME, SELF-CARE Condition: Stable Rylan Sampson Feb 04, 2018 14:07
[2018-02-04] MEDS ORDERED: Acetaminophen 500mg (ES) tab ORAL ONE (14:30)
[2018-02-04 14:55] LABS: BASOPHILS % (AUTO) 0.6 % (0.0-2.0); EOSINOPHILS % (AUTO) 0.4 % (0.0-3.0); HEMOGLOBIN 11.4 G/DL (12.0-16.0); LYMPHOCYTES % (AUTO) 13.5 % (20.0-45.0); MEAN CORPUSCULAR VOLUME 90 FL (80-99); MONOCYTES % (AUTO) 8.6 % (1.0-10.0); NEUTROPHILS % (AUTO) 76.9 % (45.0-75.0); PLATELET COUNT 328 K/UL (150-450); RED BLOOD COUNT 3.89 M/UL (4.20-5.40); RED CELL DISTRIBUTION WIDTH 14.4 % (11.6-14.8); WHITE BLOOD COUNT 12.1 K/UL (4.8-10.8)
[2018-02-04 15:15] VITALS: BP 123/77
[2018-02-04 15:25] LABS: ALANINE AMINOTRANSFERASE 17 U/L (12-78); ALBUMIN 3.6 G/DL (3.4-5.0); ALBUMIN/GLOBULIN RATIO 1.2 (1.0-2.7); ALKALINE PHOSPHATASE 149 U/L (46-116); ANION GAP 9 mmol/L (5-15); ASPARTATE AMINO TRANSFERASE 17 U/L (15-37); BILIRUBIN,TOTAL 0.2 MG/DL (0.2-1.0); BLOOD UREA NITROGEN 18 mg/dL (7-18); CALCIUM 8.9 MG/DL (8.5-10.1); CARBON DIOXIDE 26 MMOL/L (21-32); CHLORIDE 110 MMOL/L (98-107); CREATININE 1.2 MG/DL (0.55-1.30); POTASSIUM 4.1 MMOL/L (3.5-5.1); SODIUM 145 MMOL/L (136-145)
[2018-02-04 16:08] VITALS: BP 130/100
--- NOTE | 2018-02-05 16:37 | Cardiology Report ---
APPROVED REPORT EKG Measurement Heart [id number] Sinus tachycardia Left ventricular hypertrophy with repolarization abnormality Abnormal ECG
== END 2018-02-04 16:17 | disposition home or self-care (01) ==
LOC: EMR 13:59
DX: F45.9 Somatoform disorder, unspecified (principal); R07.89 Other chest pain; M32.9 Systemic lupus erythematosus, unspecified; Z86.711 Personal history of pulmonary embolism; Z88.2 Allergy status to sulfonamides; Z88.6 Allergy status to analgesic agent; Z88.8 Allergy status to other drugs, medicaments and biological substances; Z91.041 Radiographic dye allergy status; Z91.048 Other nonmedicinal substance allergy status
CPT/HCPCS: 80053; 82962; 85025; 85651; 93005; 96361; 96374; 99284